=== PATIENT | female | born 1965 | race Caucasian/White ===

== ENCOUNTER 2020-03-14 14:34 | Outpatient (REF) | payer MEDICAID, SELFPAY ==
[2020-03-14 16:10] LABS: Free T4 (Free Thyroxine) 1.13 ng/dL (0.71-1.85); Thyroid Stimulating Hormone 1.14 mIU/mL (0.32-4.0)
== END 2020-03-14 14:35 | disposition home or self-care (01) ==
LOC: HO.LAB 14:34
PROVIDERS: PCP Emergency Medicine; Visit Provider Internal Medicine Endocrinology, Diabetes & Metabolism
DX: E04.2 Nontoxic multinodular goiter (principal)
CPT/HCPCS: 84439; 84443

== ENCOUNTER → 2020-03-17 10:36 | Outpatient (BNVA) | payer MEDICAID, SELFPAY | PROVIDERS: PCP Emergency Medicine; Referring Provider Emergency Medicine; Visit Provider Internal Medicine Endocrinology, Diabetes & Metabolism | DX: E04.2 Nontoxic multinodular goiter (principal); Z79.899 Other long term (current) drug therapy | CPT/HCPCS: 99213 ==

== ENCOUNTER 2020-03-17 13:52 | Outpatient (REF) | payer MEDICAID, SELFPAY | END 2020-03-17 13:53 | disposition home or self-care (01) | LOC: HO.LAB 13:52 | PROVIDERS: PCP Emergency Medicine; Visit Provider Internal Medicine | DX: Z20.828 Contact with and (suspected) exposure to other viral communicable diseases (principal) | CPT/HCPCS: 87635 ==

== ENCOUNTER → 2020-06-15 13:49 | Outpatient (BNVA) | payer MEDICAID, SELFPAY | PROVIDERS: PCP Registered Nurse Community Health; Visit Provider Physician Assistant ==

== ENCOUNTER 2020-06-22 15:00 | Outpatient (RCR) | payer MEDICAID, SELFPAY | END 2020-06-26 12:32 | disposition other institution (70) | LOC: HO.PT 15:00 | PROVIDERS: PCP Registered Nurse Community Health; Visit Provider Registered Nurse Community Health | DX: M54.9 Dorsalgia, unspecified (principal); M79.604 Pain in right leg | CPT/HCPCS: 97110; 97140; 97161 ==

== ENCOUNTER 2020-08-15 07:37 | Day surgery (SDC) | payer MEDICAID, SELFPAY ==
[2020-08-09 15:35] VITALS: BMI 33.5
--- NOTE | 2020-08-14 10:51 | HO.ANESPROP2 ---
Documented by User: Lacie Nguyễn 08/14/20 10:51 HPI - Anesthesia Eval Consult details Narrative: 54yo F for Colonoscopy PMFSH Active Problems Active Problems: All Active Problems (Updated 06/15/20 @ 14:27 by Darby Pinto PA-C) Abnormal MRI (Acute) ALL (acute lymphocytic leukemia) (Acute) Positive FIT (fecal immunochemical test) (Acute) Chronic constipation (Acute) Non-toxic multinodular goiter (Acute) Past Medical History Medical History ALL (acute lymphocytic leukemia) Breast mass, right Chronic constipation Essential hypertension Gluteal tendinitis of both buttocks Goiter diffuse, nontoxic Non-toxic multinodular goiter Obesity Retinopathy Thyroid nodule Family History Family History Father Lung cancer Mother Hypertension Surgical History Surgical History Hx of section Hx of colonoscopy S/P fine needle aspiration Social History Social History Smoking Status: Never smoker Use of substances other than those prescribed or required for medical reasons: No Advance Directives: No Advance Directives Information Provided: No Advance Directives on File: No Current occupational status: unemployed Meds Allergies Allergy/AdvReac Type Severity Reaction Status Date / Time No Known Allergies Allergy Verified 08/09/20 15:33 Home Medications Medication Instructions Recorded Confirmed Last Taken Type lisinopril 30 mg PO DAILY 02/29/20 08/09/20 Unknown History Exam Exam Date and Time: August 14, 2020 1051 Height,Weight and Vital Signs: Height 4 ft 11 in Weight 75.296 kg Pertinent Lab Results Pertinent Lab Results: Laboratory Tests 02/29/20 02/29/20 10:45 10:45 WBC 6.1 Hgb 13.6 Hct 39.8 Plt Count 256 Sodium 139 Potassium 4.1 Chloride 105 Carbon Dioxide 28 BUN 9 Creatinine 0.71 Assessment and Plan Assessment Anesthesia Assessment: Chart Reviewed Documented by User: Brianne Ruvalcaba 08/15/20 08:33 PMFSH Past Medical History Medical History ALL (acute lymphocytic leukemia) Breast mass, right Chronic constipation Essential hypertension Gluteal tendinitis of both buttocks Goiter diffuse, nontoxic Non-toxic multinodular goiter Obesity Retinopathy Thyroid nodule Family History Family History Father Lung cancer Mother Hypertension Surgical History Surgical History Hx of section Hx of colonoscopy S/P fine needle aspiration Social History Social History Smoking Status: Never smoker Use of substances other than those prescribed or required for medical reasons: No Advance Directives: No Advance Directives Information Provided: No Advance Directives on File: No Current occupational status: unemployed Meds Allergies Allergy/AdvReac Type Severity Reaction Status Date / Time No Known Allergies Allergy Verified 08/09/20 15:33 Home Medications Medication Instructions Recorded Confirmed Last Taken Type lisinopril 30 mg PO DAILY 02/29/20 08/09/20 Unknown History Exam Airway Mallampati Class: II TM Dist: >3cm Neck ROM: Full Heart: RRR Lungs: CTA Assessment and Plan Assessment Anesthesia Assessment: Anesthesia Plan Discussed and Chart Reviewed Final Anesthetic Review NPO: Yes ASA Class: II Final Preanesthetic Review: Meds/Allgs Chart Reviewed, Consent Obtained/Reviewed and Anes Risks/Benef Reviewed Patient Risk: Low Procedure Risk: Low Anesthetic Plan Anesthetic Plan: MAC: Disposition: Standard PACU
[2020-08-15 08:21] VITALS: BP 150/88; PULSE 90; RESP 16; TEMP 36.9; O2SAT 97; BMI 33.5
[2020-08-15] MEDS: Lactated Ringers 1,000 ML 100 ML IVCONT (08:32)
--- NOTE | 2020-08-15 09:21 | MHC.SHP ---
Pre-Procedural Eval Section B Chief Complaint: Other Fecal Abnormalities Relevant Family History (Specify if Yes): No Relevant Social History: None Present Medications: see Short Stay Collaborative assessment Medical History: Significant History (ALL (acute lymphocytic leukemia) Breast mass, right Chronic constipation Essential hypertension Gluteal tendinitis of both buttocks Goiter diffuse, nontoxic Non-toxic multinodular goiter Obesity Retinopathy Thyroid nodule) History of Previous Operations: Relevant previous surgery/procedure and date(s) (Hx of section Hx of colonoscopy S/P fine needle aspiration) Allergies: Allergies Allergy/AdvReac Type Severity Reaction Status Date / Time No Known Allergies Allergy Verified 08/09/20 15:33 Review of Systems Sugical H&P ROS: Negative: Constitution, Cardiovascular, Respiratory, Neurological, Psychiatric, Hem-Onc, Allergic/Immunologic, Gastrointestinal, Genitourinary, Musculoskeletal, Integumentary, Endocrine and Eyes/Ears/Nose/Throat Exam Surgical H&P Exam: Normal: HEENT, Normal: Heart, Normal: Lungs, Normal: Extremities, Normal: Abdomen, Normal: Skin and Normal: Neurological Plan Diagnosis/Plan: Unchanged I have reviewed the history and physical and performed a pertinent physical examination on my patient. No changes have occurred unless specified.
--- NOTE | 2020-08-15 09:30 | PM.OP ---
Brief Operative Note Date of Service: 08/15/20 Pre-op diagnosis: pos FIt test Post-op diagnosis: same Procedure: see op note Surgeon: Yves Soriano MD Anesthesia: MAC Estimated blood loss (mL): 0 Condition: stable Disposition: PACU
--- NOTE | 2020-08-15 09:30 | W.PM.OPN ---
Operative Note Operative Note Date of Service: 08/15/20 Narrative: Operative Information Procedure Description: Colonoscopy COLONOSCOPY Instrument: Olympus variable stiffness adult scope 190L Colonoscopy Monitoring: Vital signs and clinical assessment, continuous EKG monitoring, Pulse oximetry, Carbon Dioxide monitoring and blood pressure monitoring were done throughout the procedure. Colon withdrawal time was 19 minutes. Procedure: The patient was placed in the left lateral decubitis position and pre-procedure medications were administered. After a digital rectal examination of the ano-rectum, the video colonoscope was inserted into the rectum and advanced through the colon to the cecum/TI. The colonoscope was slowly withdrawn in a retrograde panoramic fashion and the colon mucosa was carefully examined including a retroflexed view of the rectum. Findings and interventions are described below. Procedure Difficulty:easy Findings: Terminal Ileum-normal Cecum:normal Ascending Colon: x 2 sessiel polyps removed with cold snare measuring about 8-10 mm Transverse Colon - x 1 sessile polyp 6-9 mm removed with cold snare Descending Colon:normal Sigmoid Colon: x 2 polyps removed with cold snare, one was pedunculated measuring 12 mm with one clip attached to stalk, and the other was sessile 10 mm in size Rectum: Retroflexion with small internal hemorrhoids, grade I Anorectum - normal Colon preparation: [place] Bowel Preparation Scale Right colon; 2 Transverse colon: 3 Left colon; 2 (0 = Unprepared colon segment with mucosa not seen due to solid stool that cannot be cleared. 1 = Portion of mucosa of the colon segment seen, but other areas of the colon segment not well seen due to staining, residual stool and/or opaque liquid. 2 = Minor amount of residual staining, small fragments of stool and/or opaque liquid, but mucosa of colon segment seen well. 3 = Entire mucosa of colon segment seen well with no residual staining, small fragments of stool or opaque liquid) Impression and Post Procedure Diagnosis: polyps internal hemorrhoids Plan: High fiber diet leaflet Avoid straining at stool, epsom salts and sitz bath, anusol supps or cream prn Repeat Colonoscopy in 1-2 years or earlier if clinically indicated Above findings were reviewed with the patient and relevant handouts were provided if indicated.
[2020-08-15 10:20] VITALS: BP 125/77; PULSE 80; RESP 18; TEMP 36; O2SAT 100
[2020-08-15 10:35] VITALS: BP 141/72; PULSE 76; RESP 18; TEMP 36.2; O2SAT 100
== END 2020-08-15 11:44 | disposition home or self-care (01) ==
PROVIDERS: Visit Provider Internal Medicine Gastroenterology
PROC: 0DJD8ZZ Inspection of Lower Intestinal Tract, Via Natural or Artificial Opening Endoscopic (ICD-10-PCS; CPT 45378; principal; 2020-08-15 09:20)
DX: R19.5 Other fecal abnormalities (principal); D12.2 Benign neoplasm of ascending colon; D12.3 Benign neoplasm of transverse colon; D12.5 Benign neoplasm of sigmoid colon; K64.0 First degree hemorrhoids; K59.09 Other constipation; I10 Essential (primary) hypertension; C91.00 Acute lymphoblastic leukemia not having achieved remission; Z79.899 Other long term (current) drug therapy
CPT/HCPCS: 45385; 88305

== ENCOUNTER → 2020-08-21 11:05 | Outpatient (BNVA) | payer MEDICAID, SELFPAY | PROVIDERS: PCP Registered Nurse Community Health; Visit Provider Physician Assistant ==

== ENCOUNTER 2020-12-06 10:43 | Outpatient (REF) | payer MEDICAID, SELFPAY ==
--- NOTE | ~2020-12-06 | MM_ITS ---
EXAMINATION: MM SCREENING DIGITAL BREAST TOMOSYNTHESIS, BILATERAL CLINICAL INFORMATION: Screening. Asymptomatic. Prior outside excisional right breast biopsy 2017. The lifetime risk of breast cancer based on the Tyrer-Cuzick Model is 6%. COMPARISON: Mammography: 07/16/2019, 05/13/2018; outside exam 05/02/2017 ([place], [place]). TECHNIQUE: Digital breast tomosynthesis is performed in both the craniocaudal and mediolateral oblique views along with computer-aided detection (CAD). Synthesized 2D images are generated from the tomosynthesis. Additional right CC and right MLO views are obtained. FINDINGS: There are scattered areas of fibroglandular density (ACR BI-RADS breast composition Category b). Breast tissue composition borders on heterogeneously dense. There are scattered stable asymmetries similar to prior exams. There is no developing density or interval mass or architectural abnormality. Again, scattered punctate and some dermal calcifications are seen. There are postsurgical changes right breast with mildly reduced breast size and stable scarring. MM/MM tomosynthesis screening BI IMPRESSION: No significant changes from prior studies. ASSESSMENT: BI-RADS 2: Benign RECOMMENDATION: Routine annual mammography screening. This patient's information was entered into a reminder system with a target due date for their next mammogram.
== END 2020-12-06 10:44 | disposition home or self-care (01) ==
LOC: HO.MAMMO 10:43
PROVIDERS: PCP Internal Medicine; Visit Provider Internal Medicine
DX: Z12.31 Encounter for screening mammogram for malignant neoplasm of breast (principal)
CPT/HCPCS: 77063; 77067

== ENCOUNTER 2021-03-05 12:43 | Outpatient (REF) | payer MEDICAID, SELFPAY ==
--- NOTE | ~2021-03-05 | US_ITS ---
EXAMINATION: US THYROID CLINICAL INFORMATION: Multinodular goiter. COMPARISON: Ultrasound thyroid soft tissue neck, most recent 05/18/2020. TECHNIQUE: Linear transducer ramirez-scale and color Doppler examination with attention to the region of the thyroid. FINDINGS: SIZE: Measurements of the thyroid lobes and nodules are given in sagittal, anteroposterior and transverse dimensions respectively. Right Thyroid Lobe: 4.4 x 2.2 x 1.8 cm, volume 8.9 mL. Previously 4.2 x 2.5 x 1.8 cm, volume 9.8 mL. Parenchyma: The gland echotexture is homogeneous. Thyroid vascularity is normal. Left Thyroid Lobe: 3.8 x 1.9 x 1.6 cm, volume 6.0 mL. Previously 4.4 x 1.8 x 1.9 cm, volume 7.8 mL. Parenchyma: The gland echotexture is homogeneous. Thyroid vascularity is normal. Isthmus: 0.5 cm in maximum AP dimension. Previously 0.5 cm. Estimated total number of nodules greater than or equal to 1 cm: 5. Crown Buffer nodules are described as follows: 1. Location: Right upper. Size: 1.3 x 0.9 x 1.2 cm, volume 0.7 mL. Previously: 1.2 x 1.0 x 1.1 cm, volume 0.7 mL. Nodule characteristics: Composition: Solid (2). Echogenicity: Isoechoic (1). Shape: Not taller than wide (0). Margins: Smooth (0). Echogenic Foci: None (0). ACR TI-RADS total points: 3 Previous: Not applicable. ACR TI-RADS category: 3 Previous: Not applicable. Significant change in size (>/= 20% in 2 dimensions and minimal increase of 2 mm or 50% or greater increase in volume): Change in features: Change in ACR TI-RADS risk category: 2. Location: Right mid. Size: 1.4 x 1.2 x 1.1 cm, volume 1.0 mL. Previously: 1.1 x 1.2 x 0.9 cm, volume 0.6 mL. Nodule characteristics: Composition: Solid/almost completely solid (2). Echogenicity: Isoechoic (1). Shape: Not taller than wide (0). Margins: Ill-defined (0). Echogenic Foci: None (0). ACR TI-RADS total points: 3 Previous: Not applicable. ACR TI-RADS category: 3 Previous: Not applicable. Significant change in size (>/= 20% in 2 dimensions and minimal increase of 2 mm or 50% or greater increase in volume): Change in features: Change in ACR TI-RADS risk category: 3. Location: Right lower. Size: 1.1 x 0.6 x 0.9 cm, volume 0.3 mL. Previously: 0.6 x 0.5 x 0.8 cm, volume 0.1 mL. Nodule characteristics: Composition: Solid/almost completely solid (2). Echogenicity: Hyperechoic (1). Shape: Not taller than wide (0). Margins: Ill-defined (0). Echogenic Foci: None (0). ACR TI-RADS total points: 3 Previous: Not applicable. ACR TI-RADS category: 3 Previous: Not applicable. Significant change in size (>/= 20% in 2 dimensions and minimal increase of 2 mm or 50% or greater increase in volume): Change in features: Change in ACR TI-RADS risk category: 4. Location: Left mid. Size: 1.5 x 1.4 x 1.6 cm, volume 1.8 mL. Previously: 1.7 x 1.0 x 1.2 cm, volume 1.0 mL. Nodule characteristics: Composition: Mixed cystic and solid (1). Echogenicity: Hyperechoic (1). Shape: Not taller than wide (0). Margins: Ill-defined (0). Echogenic Foci: None (0). ACR TI-RADS total points: 2 Previous: Not applicable. ACR TI-RADS category: 2 Previous: Not applicable. Significant change in size (>/= 20% in 2 dimensions and minimal increase of 2 mm or 50% or greater increase in volume): Change in features: Change in ACR TI-RADS risk category: 5. Location: Left lower. Size: 1.1 x 0.9 x 0.9 cm, volume 0.5 mL. Previously: New. Nodule characteristics: Composition: Mixed cystic and solid (1). Echogenicity: Hyperechoic (1). Shape: Not taller than wide (0). Margins: Ill-defined (0). Echogenic Foci: None (0). ACR TI-RADS total points: 2 Previous: Not applicable. ACR TI-RADS category: 2 Previous: Not applicable. NODES: No lymphadenopathy is seen in the tissue surrounding the thyroid gland. US/US thyroid IMPRESSION: Bilateral thyroid nodules. There is a newly appreciated complex cystic nodule in the inferior left lobe. Otherwise thyroid nodules are stable. ACR TI-RADS RECOMMENDATION REFERENCE: Ultrasound-guided fine-needle aspiration, followup ultrasound, no further follow up. * TR1 (0 point) and TR 2 (2 points): No FNA or follow up * TR3 (3 points): FNA if more than or equal to 2.5 cm in maximum dimension, followup ultrasound in 1, 3 and 5 years if 1.5 to 2.4 cm in maximum dimension. * TR4 (4-6 points): FNA if more than or equal to 1.5 cm in maximum dimension, followup ultrasound in 1, 2, 3 and 5 years if 1 to 1.4 cm in maximum dimension. * TR5 (more than or equal to 7 points): FNA if more than or equal to 1 cm in maximum dimension, followup ultrasound every year for 5 years if 0.5 to 0.9 cm in maximum dimension. * TR3, TR4 or TR5 nodules that are below the size threshold for follow up receive no follow up.
== END 2021-03-05 12:44 | disposition home or self-care (01) ==
LOC: HO.US 12:43
PROVIDERS: Visit Provider Internal Medicine
DX: E04.2 Nontoxic multinodular goiter (principal)
CPT/HCPCS: 76536

== ENCOUNTER 2021-07-26 10:47 | Outpatient (REF) | payer MEDICAID, SELFPAY ==
--- NOTE | 2021-07-26 11:53 | PM.OP ---
Brief Operative Note Date of Service: 07/26/21 Pre-op diagnosis: Multinodular Thyroid Procedure: This is doctor Chanell Ochoa. This is an ultrasound-guided fine-needle aspiration report. Date of Examination: Indication: Multinodular Thyroid Porcedure: Procedure was explained to the patient. Alternatives, the risk and benefits were discussed. Written consent was obtained. A time-out was also obtained. After sterile preparation, fine-needle aspiration of a left mid pole thyroid nodule 2.0 cm thyroid nodule was performed using direct ultrasound guidance to confirm accurate needle placement. Four aspirations were made using 27 gauge needles. Samples were submitted for cytology. One pass was dedicated for [employer] sequencing wall covering installer testing. Our attention was then turned to the right lobe. Fine-needle aspiration of a right mid pole 1.7 cm thyroid nodule was performed using direct ultrasound guidance to confirm accurate needle placement. Three aspirations were made using 27 gauge needles. Samples were submitted for cytology. One pass was dedicated for [employer] sequencing wall covering installer testing. Fine-needle aspiration of a right lower pole 1.5 cm thyroid nodule was then performed using direct ultrasound guidance to confirm accurate needle placement. Four aspirations were made using 27 gauge needles. Samples were submitted for cytology. One pass was dedicated for [employer] sequencing wall covering installer testing. The patient tolerated the procedure well. Aftercare instructions were provided. Impression: Uncomplicated fine needle aspiration biopsy of a left mid pole 2.0 cm thyroid nodule, a right mid pole 1.7 cm thyroid nodule and a right lower pole 1.5 cm thyroid nodule under ultrasound guidance. Surgeon: Chanell Ochoa, DO Was an Engineering Surveyor used for this Procedure?: No Estimated blood loss (mL): 0
[2021-07-26] MEDS: Lidocaine HCl 1 % MPF 5 ML VIAL SUBCUT (12:44)
== END 2021-07-26 10:48 | disposition home or self-care (01) ==
LOC: HO.US 10:47
PROVIDERS: PCP Registered Nurse Community Health; Visit Provider Internal Medicine
DX: E04.2 Nontoxic multinodular goiter (principal)
CPT/HCPCS: 10005; 10006; 88172; 88173; 88177

== ENCOUNTER → 2021-08-13 09:46 | Outpatient (BNVA) | payer MEDICAID, SELFPAY | PROVIDERS: PCP Internal Medicine; Visit Provider Internal Medicine | DX: E04.2 Nontoxic multinodular goiter (principal); E55.9 Vitamin D deficiency, unspecified; Z79.899 Other long term (current) drug therapy | CPT/HCPCS: Q3014 ==

== ENCOUNTER → 2021-09-20 14:42 | Outpatient (BNVA) | payer MEDICAID, SELFPAY | PROVIDERS: PCP Registered Nurse Community Health; Referring Provider Registered Nurse Community Health; Visit Provider Physician Assistant | DX: K59.09 Other constipation (principal); D36.9 Benign neoplasm, unspecified site | CPT/HCPCS: 99212 ==

== ENCOUNTER 2021-10-17 16:09 | Outpatient (REF) | payer MEDICAID, SELFPAY ==
--- NOTE | ~2021-10-17 | US_ITS ---
EXAMINATION: US THYROID CLINICAL INFORMATION: Nontoxic multinodular goiter. COMPARISON: Ultrasound soft tissue head/neck thyroid dated 03/05/2021 and 02/17/2020. TECHNIQUE: Linear transducer grayscale and color Doppler examination with attention to the region of the thyroid. FINDINGS: SIZE: Measurements of the thyroid lobes and nodules are given in sagittal, anteroposterior and transverse dimensions respectively. Right Thyroid Lobe: 4.0 x 2.5 x 1.9 cm, volume 9.9 mL. Previously 4.4 x 2.2 x 1.8 cm, volume 8.9 mL. Parenchyma: The gland echotexture is homogeneous. Thyroid vascularity is normal. Left Thyroid Lobe: 3.8 x 2.3 x 1.8 cm, volume 8.2 mL. Previously 3.8 x 1.9 x 1.6 cm, volume 6.0 mL. Parenchyma: The gland echotexture is homogeneous. Thyroid vascularity is normal. Isthmus: 0.5 cm in maximum AP dimension. Previously 0.5 cm. Estimated total number of nodules greater than or equal to 1 cm: 2. Home Health Care Respiratory Therapist nodules are described as follows: 1. Location: Right superior. Size: 1.1 x 1.0 x 1.1 cm, volume 0.7 mL. Previously: 1.3 x 0.9 x 1.2 cm, volume 0.7 mL. Nodule characteristics: Composition: Solid (2). Echogenicity: Isoechoic (1). Shape: Not taller than wide (0). Margins: Smooth (0). Echogenic Foci: None (0). ACR TI-RADS total points: 3 Previous: 3 ACR TI-RADS category: 3 Previous: 3 2. Location: Right mid. Size: 1.1 x 1.1 x 1.2 cm, volume 0.7 mL. Previously: 1.4 x 1.2 x 1.1 cm, volume 1.0 mL. Nodule characteristics: Composition: Solid (2). Echogenicity: Isoechoic (1). Shape: Not taller than wide (0). Margins: Smooth (0). Echogenic Foci: None (0). ACR TI-RADS total points: 3 Previous: 3 ACR TI-RADS category: 3 Previous: 3 3. Location: Right inferior. Size: 0.7 x 0.6 x 0.7 cm, volume 0.1 mL. Previously: 1.1 x 0.6 x 0.9 cm, volume 0.3 mL. Nodule characteristics: Composition: Solid/almost completely solid (2). Echogenicity: Isoechoic (1). Shape: Not taller than wide (0). Margins: Smooth (0). Echogenic Foci: None (0). ACR TI-RADS total points: 3 Previous: 3 ACR TI-RADS category: 3 Previous: 3 4. Location: Left mid. Size: 0.8 x 0.7 x 0.7 cm, volume 0.2 mL. Previously: 1.5 x 1.4 x 1.6 cm, volume 1.8 mL. Nodule characteristics: Composition: Mixed cystic and solid (1). Echogenicity: Hyperechoic (1). Shape: Not taller than wide (0). Margins: Smooth (0). Echogenic Foci: None (0). ACR TI-RADS total points: 2 Previous: 2 ACR TI-RADS category: 2 Previous: 2 Previously seen 1.1 cm nodule in the lower pole was not visualized on this study by the home health care respiratory therapist NODES: No lymphadenopathy is seen in the tissue surrounding the thyroid gland. US/US thyroid IMPRESSION: Once again areas of thyroid nodularity are seen here. Several these nodules are poorly defined margins. Nevertheless I feel there is no suspicious increase in several nodules may show some mild decrease. Continued follow-up is recommended. Recommend follow-up in one year ACR TI-RADS RECOMMENDATION REFERENCE: Ultrasound-guided fine-needle aspiration, followup ultrasound, no further follow up. * TR1 (0 point) and TR 2 (2 points): No FNA or follow up * TR3 (3 points): FNA if more than or equal to 2.5 cm in maximum dimension, followup ultrasound in 1, 3 and 5 years if 1.5 to 2.4 cm in maximum dimension. * TR4 (4-6 points): FNA if more than or equal to 1.5 cm in maximum dimension, followup ultrasound in 1, 2, 3 and 5 years if 1 to 1.4 cm in maximum dimension. * TR5 (more than or equal to 7 points): FNA if more than or equal to 1 cm in maximum dimension, followup ultrasound every year for 5 years if 0.5 to 0.9 cm in maximum dimension. * TR3, TR4 or TR5 nodules that are below the size threshold for follow up receive no follow up.
== END 2021-10-17 16:10 | disposition home or self-care (01) ==
LOC: HO.US 16:09
PROVIDERS: Visit Provider Internal Medicine
DX: E04.2 Nontoxic multinodular goiter (principal)
CPT/HCPCS: 76536

== ENCOUNTER 2021-12-17 09:35 | Day surgery (SDC) | payer MEDICAID, SELFPAY ==
[2021-12-11 14:48] VITALS: BMI 32.4
--- NOTE | 2021-12-14 10:31 | P.CONAN_ITS ---
Documented by User: Lacie Nguyễn NP 12/14/21 10:32 HPI - Anesthesia Eval Consult details Narrative: 56yo F for Colonoscopy PMFSH Active Problems Active Problems: All Active Problems (Updated 09/20/21 @ 14:52 by Darby Pinto PA-C) Abnormal MRI (Acute) ALL (acute lymphocytic leukemia) (Acute) Positive FIT (fecal immunochemical test) (Acute) Tubular adenoma (Acute) Vitamin D deficiency (Acute) Chronic constipation (Acute) Non-toxic multinodular goiter (Acute) Past Medical History Medical History (Updated 12/14/21 @ 10:32 by Lacie Nguyễn NP) ALL (acute lymphocytic leukemia) Breast mass, right Chronic constipation Essential hypertension Gluteal tendinitis of both buttocks Goiter diffuse, nontoxic Non-toxic multinodular goiter Obesity Retinopathy Thyroid nodule Vitamin D deficiency Family History Family History Father Lung cancer Mother Hypertension Surgical History Surgical History (Updated 12/11/21 @ 14:42 by Mayelin Lorenzo RN) Hx of section Hx of colonoscopy S/P fine needle aspiration Social History Social History Household Members: Children Household Members Other:: son and daughter in law Alcohol intake: never Advance Directives: No Advance Directives Information Provided: Yes Current occupational status: unemployed Meds Allergies Allergy/AdvReac Type Severity Reaction Status Date / Time No Known Allergies Allergy Verified 09/20/21 14:48 Home Medications Medication Instructions Recorded Confirmed Last Taken Type lisinopril 30 mg tablet 30 mg PO DAILY 02/29/20 12/11/21 Unknown History docusate sodium 100 mg capsule 200 mg PO BEDTIME PRN Constipation 08/13/21 12/11/21 Unknown History (Colace) polyethylene glycol 3350 17 gram 17 g PO DAILY PRN constipation 08/13/21 09/20/21 Unknown History oral powder packet (Miralax) Exam Exam Date and Time: December 14, 2021 1031 Height,Weight and Vital Signs: Height 5 ft Weight 75.296 kg Assessment and Plan Assessment Anesthesia Assessment: Chart Reviewed Documented by User: Claudia Millard MD 12/17/21 11:07 [facility] Past Medical History Medical History (Updated 12/14/21 @ 10:32 by Lacie Nguyễn NP) ALL (acute lymphocytic leukemia) Breast mass, right Chronic constipation Essential hypertension Gluteal tendinitis of both buttocks Goiter diffuse, nontoxic Non-toxic multinodular goiter Obesity Retinopathy Thyroid nodule Vitamin D deficiency Family History Family History Father Lung cancer Mother Hypertension Family history of problems with anesthesia: No Surgical History Surgical History (Updated 12/11/21 @ 14:42 by Mayelin Lorenzo RN) Hx of section Hx of colonoscopy S/P fine needle aspiration History of Problems with Anesthesia: No Social History Social History Household Members: Children Household Members Other:: son and daughter in law Alcohol intake: never Advance Directives: No Advance Directives Information Provided: Yes Current occupational status: unemployed Meds Allergies Allergy/AdvReac Type Severity Reaction Status Date / Time No Known Allergies Allergy Verified 09/20/21 14:48 Home Medications Medication Instructions Recorded Confirmed Last Taken Type lisinopril 30 mg tablet 30 mg PO DAILY 02/29/20 12/11/21 Unknown History docusate sodium 100 mg capsule 200 mg PO BEDTIME PRN Constipation 08/13/21 12/11/21 Unknown History (Colace) polyethylene glycol 3350 17 gram 17 g PO DAILY PRN constipation 08/13/21 09/20/21 Unknown History oral powder packet (Miralax) Exam Airway Mallampati Class: II TM Dist: >3cm Neck ROM: Full Heart: rrr Lungs: cta Assessment and Plan Assessment Anesthesia Assessment: Anesthesia Plan Discussed and Chart Reviewed Final Anesthetic Review Family History of Problems with Anesthesia: No History of Problems with Anesthesia: No NPO: Yes ASA Class: II Final Preanesthetic Review: No Changes in Pt Med Stat, Meds/Allgs Chart Reviewed and Consent Obtained/Reviewed Patient Risk: Intermediate Procedure Risk: Intermediate Anesthetic Plan Anesthetic Plan: MAC: Disposition: Standard PACU
--- NOTE | 2021-12-17 10:33 | MHC.SHP ---
Pre-Procedural Eval Section A Date of Service: 12/17/21 The patient is an INPATIENT: No The History & Physical has been completed within 30 days and I have reviewed it.: No Section B Chief Complaint: Benign neoplasm,constipation Relevant Family History (Specify if Yes): No Present Medications: see Short Stay Collaborative assessment Medical History: Significant History (ALL (acute lymphocytic leukemia) Breast mass, right Chronic constipation Essential hypertension Gluteal tendinitis of both buttocks Goiter diffuse, nontoxic Non-toxic multinodular goiter Obesity Retinopathy Thyroid nodule Vitamin D deficiency) History of Previous Operations: Relevant previous surgery/procedure and date(s) (Hx of section Hx of colonoscopy S/P fine needle aspiration) Allergies: Allergies Allergy/AdvReac Type Severity Reaction Status Date / Time No Known Allergies Allergy Verified 09/20/21 14:48 Review of Systems Sugical H&P ROS: Negative: Constitution, Cardiovascular and Respiratory Exam Surgical H&P Exam: Normal: Heart, Normal: Lungs, Normal: Extremities and Normal: Abdomen Plan Diagnosis/Plan: Unchanged I have reviewed the history and physical and performed a pertinent physical examination on my patient. No changes have occurred unless specified.
[2021-12-17 10:41] VITALS: BP 151/89; PULSE 90; RESP 18; TEMP 36.8; O2SAT 99
[2021-12-17] MEDS: Lactated Ringers 1,000 ML 50 ML IVCONT (11:02)
[2021-12-17 11:54] VITALS: BP 88/50; PULSE 80; RESP 16; TEMP 36.4; O2SAT 97
--- NOTE | 2021-12-17 11:55 | P.BOP_ITS ---
Brief Operative Note Date of Service: 12/17/21 Pre-op diagnosis: Colon cancer screen, follow-up of colon polyps Post-op diagnosis: other (Colon polyp, diverticulosis, hemorrhoids) Procedure: COLONOSCOPY TILL CECUM WITH BIOPSIES AND SNARE POLYPECTOMY Consent: Indications for the procedure and potential complications of bleeding, perforation, reaction to medications and missed diagnosis were discussed with the patient and informed consent was obtained. Instrument: Olympus PCF H 190 L variable stiffness pediatric colonoscope Monitoring: Vital signs and clinical assessment, intermittent blood pressure monitoring, continuous EKG monitoring, Pulse oximetry and Carbon Dioxide monitoring were done throughout the procedure. Colon withdrawl time was 22 minutes. Procedure: The patient was placed in the left lateral decubitis position and pre-procedure medications were administered. After a digital rectal examination of the ano-rectum, the video colonoscope was inserted into the rectum and advanced through the colon to the cecum. The colonoscope was slowly withdrawn in a retrograde panoramic fashion and the colon mucosa was carefully examined including a retroflexed view of the rectum. Findings and interventions are described below. Procedure Difficulty: Without difficulty Findings: Terminal Ileum: Not evaluated Cecum: Normal Ascending Colon: Normal Transverse Colon: A 7-8 mm sessile polyp removed with a cold snare. Residual polyp removed with a cold bx Descending Colon: Moderate diverticulosis Sigmoid Colon: Moderate diverticulosis Rectum: Normal Ano-rectum: Small internal hemorrhoids Colon preparation: Good after some irrigation. There was a thin layer of adherent stool in the right colon and excessive spasm was noted in the colon requiring repeated passage of the scope Impression and Post Procedure Diagnosis: Colonoscopy Findings: One small polyp removed Moderate diverticulosis seen in the left colon Small hemorrhoids on retroflexed exam. Plan: Await pathology results Patient has an appointment on 01/03/22 in the GI Clinic with COLE Rider. Repeat Colonoscopy interval based on path results - in 3 years if polyps are adenomatous and due to a hx of multiple colon polyps on previous colonoscopy. Above findings were reviewed with the patient and colon polyps and diverticulosis handouts were given in the discharge area Surgeon: Rachel Solano MD Anesthesia: MAC (Dr Bruno) Was an Psychological Tests Sales Agent used for this Procedure?: Yes Psychological Tests Sales Agent: Audrey Feliz Estimated blood loss (mL): 0 Pathology: other (A. transverse colon polyp) Condition: stable Disposition: PACU
[2021-12-17 12:09] VITALS: BP 94/56; PULSE 66; RESP 15; O2SAT 98
[2021-12-17 12:23] VITALS: BP 115/67; PULSE 72; RESP 14; TEMP 36.6; O2SAT 98
--- NOTE | 2021-12-17 18:08 | P.OP_ITS ---
Operative Note Operative Note Date of Service: 12/17/21 Narrative: Pre-op diagnosis: Colon cancer screen, follow-up of colon polyps Post-op diagnosis:?other (Colon polyp, diverticulosis, hemorrhoids) Procedure: COLONOSCOPY TILL CECUM WITH BIOPSIES AND SNARE POLYPECTOMY Consent: Indications for the procedure and potential complications of bleeding, perforation, reaction to medications and missed diagnosis were discussed with the patient and informed consent was obtained. Instrument: Olympus PCF H 190 L variable stiffness pediatric colonoscope Monitoring: Vital signs and clinical assessment, intermittent blood pressure monitoring, continuous EKG monitoring, Pulse oximetry and Carbon Dioxide monitoring were done throughout the procedure. Colon withdrawl time was 22 minutes. Procedure: The patient was placed in the left lateral decubitis position and pre-procedure medications were administered. After a digital rectal examination of the ano-rectum, the video colonoscope was inserted into the rectum and advanced through the colon to the cecum. The colonoscope was slowly withdrawn in a retrograde panoramic fashion and the colon mucosa was carefully examined including a retroflexed view of the rectum. Findings and interventions are described below. Procedure Difficulty: Without difficulty Findings: Terminal Ileum: Not evaluated Cecum:? Normal Ascending Colon:? Normal Transverse Colon:? A 7-8 mm sessile polyp removed with a cold snare. Residual polyp removed with a cold bx Descending Colon: ? Moderate diverticulosis Sigmoid Colon:? Moderate diverticulosis Rectum:? Normal Ano-rectum:? Small internal hemorrhoids Colon preparation:? Good after some irrigation. There was a thin layer of adherent stool in the right colon and excessive spasm was noted in the colon requiring repeated passage of the scope Impression and Post Procedure Diagnosis: Colonoscopy Findings: One small polyp removed Moderate diverticulosis seen in the left colon Small hemorrhoids on retroflexed exam. Plan: Await pathology results Patient has an appointment on 01/03/22 in the GI Clinic with COLE Rider. Repeat Colonoscopy interval based on path results - in 3 years if polyps are adenomatous and due to a hx of multiple colon polyps on previous colonoscopy. Above findings were reviewed with the patient and colon polyps and diverticulosis handouts were given in the discharge area Surgeon: Rachel Solano MD Anesthesia:?MAC (Dr Bruno) Was an General Activities Therapist used for this Procedure?:?Yes General Activities Therapist:?Audrey Feliz Estimated blood loss (mL):?0 Pathology:?other (A. transverse colon polyp) Condition:?stable Disposition:?PACU
== END 2021-12-17 13:38 | disposition home or self-care (01) ==
PROVIDERS: Visit Provider Internal Medicine Gastroenterology
PROC: 0DJD8ZZ Inspection of Lower Intestinal Tract, Via Natural or Artificial Opening Endoscopic (ICD-10-PCS; CPT 45378; principal; 2021-12-17 11:10)
DX: Z12.11 Encounter for screening for malignant neoplasm of colon (principal); Z86.010 Personal history of colon polyps; D12.3 Benign neoplasm of transverse colon; K57.30 Diverticulosis of large intestine without perforation or abscess without bleeding; K64.8 Other hemorrhoids; K59.09 Other constipation; C91.00 Acute lymphoblastic leukemia not having achieved remission; I10 Essential (primary) hypertension; E04.0 Nontoxic diffuse goiter; E04.1 Nontoxic single thyroid nodule; E55.9 Vitamin D deficiency, unspecified; H35.00 Unspecified background retinopathy; E66.9 Obesity, unspecified; Z68.32 Body mass index [BMI] 32.0-32.9, adult; Z79.899 Other long term (current) drug therapy
CPT/HCPCS: 45385; 45380; 88305

== ENCOUNTER 2021-12-29 09:21 | Outpatient (REF) | payer MEDICAID, SELFPAY ==
[2021-12-29 09:31] LABS: MANUAL DIFF FLAG NO
[2021-12-29 10:28] LABS: Estimated Average Glucose 88 mg/dL; Hemoglobin A1c % 4.7 %
[2021-12-29 10:32] LABS: Basophils Percent Auto 0.4 % (0-2); Eosinophils Absolute Auto 0.1 X10*3/uL (0.0-0.4); Eosinophils Percent Auto 1.5 % (0-4); Hematocrit 41.8 % (37.0-47.0); Imm Gran Abs Auto 0.02 X10*3/uL (0.00-0.03); Imm Gran Pct Auto 0.3 % (0.0-0.4); Lymphocytes Absolute Auto 1.6 X10*3/uL (1.2-4.9); Lymphocytes Percent Auto 22.2 % (20-40); Mean Corpuscular HGB Conc 33.5 g/dl (31.0-35.0); Mean Corpuscular Hemoglobin 29.1 pg (27.0-33.0); Mean Corpuscular Volume 86.9 fL (80.0-98.0); Mean Platelet Volume 10.4 fL (9.4-12.3); Monocytes Absolute Auto 0.5 X10*3/uL (0.1-1.2); Monocytes Percent Auto 6.4 % (2-11); Neutrophils Absolute Auto 5.1 x10*3/uL (2.0-8.3); Neutrophils Percent Auto 69.2 % (45-73); Platelet Count 273 X10*3/uL (160-400); Red Blood Count 4.81 X10*6/uL (4.20-5.50); Red Cell Distribution Width 11.9 % (11.0-16.0); White Blood Count 7.4 X10*3/uL (4.8-10.8)
[2021-12-29 10:34] LABS: Alanine Aminotransferase 27 U/L (0-31); Albumin Level 4.2 g/dL (3.5-5.0); Alkaline Phosphatase 80 U/L (39-117); Anion Gap 13 (12-20); Aspartate Amino Transferase 18 U/L (5-31); Blood Urea Nitrogen 9 mg/dL (9-16); Calcium 9.3 mg/dL (8.4-10.2); Carbon Dioxide 29 mmol/L (22-29); Chloride 105 mmol/L (96-108); Cholesterol 185 mg/dL; Estimated Glomerular Filt Rate > 60; Glucose Random 97 mg/dL (60-115); HDL Cholesterol 32 mg/dL; LDL Cholesterol Calculated 132 mg/dl; Potassium 4.7 mmol/L (3.3-5.1); Sodium 142 mmol/L (135-145); Total Protein 7.1 g/dL (6.5-8.0); Triglycerides 107 mg/dL
[2021-12-29 10:56] LABS: Vitamin D 25-OH Total 31.2 ng/mL (>30)
== END 2021-12-29 09:22 | disposition home or self-care (01) ==
LOC: HO.LAB 09:21
PROVIDERS: PCP Registered Nurse Community Health; Visit Provider Registered Nurse Community Health
DX: E66.9 Obesity, unspecified (principal); I10 Essential (primary) hypertension
CPT/HCPCS: 36415; 80053; 80061; 82306; 83036; 85025

== ENCOUNTER → 2022-01-03 14:32 | Outpatient (BNVA) | payer MEDICAID, SELFPAY | PROVIDERS: PCP Registered Nurse Community Health; Visit Provider Physician Assistant | DX: K63.5 Polyp of colon (principal); K64.9 Unspecified hemorrhoids; K57.30 Diverticulosis of large intestine without perforation or abscess without bleeding | CPT/HCPCS: 99212 ==

== ENCOUNTER 2022-03-20 15:50 | Outpatient (REF) | payer MEDICAID, SELFPAY ==
--- NOTE | ~2022-03-20 | MM_ITS ---
EXAMINATION: MM SCREENING DIGITAL BREAST TOMOSYNTHESIS, BILATERAL CLINICAL INFORMATION: Screening. Asymptomatic. Right excisional biopsy, 2017 The lifetime risk of breast cancer based on the Tyrer-Cuzick Model is 6%. COMPARISON: Mammography: 12/06/2020, 07/16/2019 05/13/2018 TECHNIQUE: Digital breast tomosynthesis is performed in both the craniocaudal and mediolateral oblique views along with computer-aided detection (CAD). Synthesized 2D images are generated from the tomosynthesis. Additional bilateral MLO views are provided. FINDINGS: There are scattered areas of fibroglandular density (ACR BI-RADS breast composition Category b). There is minor scarring right breast consistent with the prior excisional biopsy. Parenchymal pattern is similar to prior exams and there is no developing density or interval mass or interval architectural abnormality. No abnormal calcifications. The axilla are unremarkable. MM/MM tomosynthesis screening BI IMPRESSION: -No mammographic evidence of malignancy. -Stable scarring central right breast consistent with prior excisional biopsy. ASSESSMENT: BI-RADS 2: Benign RECOMMENDATION: Routine annual mammography screening. This patient's information was entered into a reminder system with a target due date for their next mammogram.
== END 2022-03-20 15:51 | disposition home or self-care (01) ==
LOC: HO.MAMMO 15:50
PROVIDERS: PCP Registered Nurse Community Health; Visit Provider Registered Nurse Community Health
DX: Z12.31 Encounter for screening mammogram for malignant neoplasm of breast (principal)
CPT/HCPCS: 77063; 77067

== ENCOUNTER 2022-08-14 16:09 | Outpatient (REF) | payer MEDICAID, SELFPAY ==
[2022-08-14 18:17] LABS: Free T4 (Free Thyroxine) 1.29 ng/dL (0.71-1.85); Thyroid Stimulating Hormone 1.28 uIU/mL (0.32-4.0); Vitamin D 25-OH Total 18.8 ng/mL (>30)
== END 2022-08-14 16:10 | disposition home or self-care (01) ==
LOC: HO.LAB 16:09
PROVIDERS: Visit Provider Internal Medicine
DX: E04.2 Nontoxic multinodular goiter (principal); E55.9 Vitamin D deficiency, unspecified
CPT/HCPCS: 36415; 82306; 84439; 84443

== ENCOUNTER → 2022-08-19 14:47 | Outpatient (BNVA) | payer MEDICAID, SELFPAY | PROVIDERS: Visit Provider Internal Medicine | DX: E04.2 Nontoxic multinodular goiter (principal); E55.9 Vitamin D deficiency, unspecified | CPT/HCPCS: 99212 ==

== ENCOUNTER 2022-11-16 09:45 | Outpatient (REF) | payer MEDICAID, SELFPAY ==
[2022-11-16 11:30] LABS: Free T4 (Free Thyroxine) 1.16 ng/dL (0.71-1.85); Thyroid Stimulating Hormone 0.94 uIU/mL (0.32-4.0); Vitamin D 25-OH Total 44.3 ng/mL (>30)
== END 2022-11-16 09:46 | disposition home or self-care (01) ==
LOC: HO.LAB 09:45
PROVIDERS: PCP Registered Nurse Community Health; Visit Provider Internal Medicine
DX: E04.2 Nontoxic multinodular goiter (principal); E55.9 Vitamin D deficiency, unspecified
CPT/HCPCS: 36415; 82306; 84439; 84443

== ENCOUNTER 2023-03-17 | Outpatient (REF) | payer MEDICAID, SELFPAY ==
[2023-03-19 20:37] LABS: HPV mRNA E6/E7 rflx Not Detected (Not Detected)
== END 2023-03-17 00:01 | disposition home or self-care (01) ==
LOC: HO.HHCLNP
PROVIDERS: Visit Provider Advanced Practice Midwife
DX: Z01.419 Encounter for gynecological examination (general) (routine) without abnormal findings (principal)
CPT/HCPCS: 87624; 88142

== ENCOUNTER 2023-03-27 15:44 | Outpatient (REF) | payer MEDICAID, SELFPAY ==
--- NOTE | ~2023-03-27 | MM_ITS ---
EXAMINATION: MM SCREENING DIGITAL BREAST TOMOSYNTHESIS, BILATERAL CLINICAL INFORMATION: Screening. Asymptomatic. COMPARISON: Mammography: This study is compared with prior exams dating back to 2018. TECHNIQUE: Digital breast tomosynthesis is performed in both the craniocaudal and mediolateral oblique views along with computer-aided detection (CAD). Synthesized 2D images are generated from the tomosynthesis. FINDINGS: There are scattered areas of fibroglandular density (ACR BI-RADS breast composition Category b). There are no significant masses, abnormal calcifications, or other abnormalities. There are architectural changes in the retroareolar region of the right breast from prior excision. MM/MM tomosynthesis screening BI IMPRESSION: No mammographic evidence of malignancy. ASSESSMENT: BI-RADS BI-RADS 2 - Benign Findings RECOMMENDATION: Routine annual mammography screening. 1 year F/U This examination should not preclude the clinical evaluation of a suspicious palpable abnormality. This patient's information was entered into a reminder system with a target due date for their next mammogram.
== END 2023-03-27 15:45 | disposition home or self-care (01) ==
LOC: HO.MAMMO 15:44
PROVIDERS: Visit Provider Registered Nurse Community Health
DX: Z12.31 Encounter for screening mammogram for malignant neoplasm of breast (principal)
CPT/HCPCS: 77063; 77067

== ENCOUNTER → 2023-03-27 16:00 | Outpatient (BNV) | payer MEDICAID, SELFPAY | PROVIDERS: Visit Provider Radiology Diagnostic Radiology | DX: Z12.31 Encounter for screening mammogram for malignant neoplasm of breast (principal) | CPT/HCPCS: 77063; 77067 ==

== ENCOUNTER 2023-08-18 13:31 | Outpatient (AMB) | payer MEDICAID, SELFPAY ==
[2023-08-18 13:41] VITALS: BP 140/82; PULSE 84; BMI 31.6
--- NOTE | 2023-08-18 13:41 | MHC.OFFVIS ---
Intake Vital Signs 08/18/23 13:41 Height 5 ft 0.79 in Weight 166 lb 0.129 oz BMI 31.6 BP 140/82 H Blood Pressure Location Rt brachial Position Sitting Pulse 84 Pulse Source Pulse Oximeter Intake Visit Reasons: F/U NTMNG-confirmed Intake Note: Patient presents today for NTMNG follow up visit, last seen by Dr. Rodriguez on 08/19/2022. Endoscopic Technician Required: Yes Endoscopic Technician Language: Ccu Nurse Name: Teresita, Medical Staff Information Interpreted: non-clinical & clinical Accompanied by: Self / Same As Patient Allergies No Known Allergies Allergy (Verified 08/18/23 13:43) Medication List - Last Reconciled 08/18/23 by Jose Chan MD cholecalciferol (vitamin D3) 50 mcg PO DAILY 30 days lisinopril 30 mg PO DAILY polyethylene glycol 3350 (Miralax) 17 grams PO DAILY PRN polyethylene glycol 3350 (Miralax) 17 grams PO DAILY HPI HPI Comments History of Present Illness Details 57 YO Female with a PMHx of ALL diagnosed in the 1970's s/p chemo and radiation who is seen in F/U for a NTMNG. She was previously followed by Dr. Bo. The patient last saw Dr. Rodriguez on 08/19/2022 She had previously undergone an FNA biopsy with Dr. Bo 05/28/2018 of a LLP 3.5 cm nodule. She had a repeat thyroid US which revealed multiple nodules meeting indication for FNA biopsy, so she underwent FNA biopsy with fl 07/26/2021 of a LMP 2.0 cm, RMP 1.7 cm and a RLP 1.5 cm thyroid nodule. Cytology results of all 3 were benign. She denies any compressive symptoms currently. Thyroid US: 10/17/2021 Right Thyroid Lobe: 4.0 x 2.5 x 1.9 cm, volume 9.9 mL. Previously 4.4 x 2.2 x 1.8 cm, volume 8.9 mL. Parenchyma: The gland echotexture is homogeneous. Thyroid vascularity is normal. Left Thyroid Lobe: 3.8 x 2.3 x 1.8 cm, volume 8.2 mL. Previously 3.8 x 1.9 x 1.6 cm, volume 6.0 mL. Parenchyma: The gland echotexture is homogeneous. Thyroid vascularity is normal. Isthmus: 0.5 cm in maximum AP dimension. Previously 0.5 cm. Estimated total number of nodules greater than or equal to 1 cm: 2. Software Support Technician nodules are described as follows: 1.? Location: Right superior. ?? ? Size: 1.1 x 1.0 x 1.1 cm, volume 0.7 mL. ?? ? Previously: 1.3 x 0.9 x 1.2 cm, volume 0.7 mL. ?? ? Nodule characteristics: ?? ? Composition: Solid (2). ?? ? Echogenicity: Isoechoic (1). ?? ? Shape: Not taller than wide (0). ?? ? Margins: Smooth (0). ?? ? Echogenic Foci: None (0).? ACR TI-RADS total points: 3 Previous: 3 ?? ? ACR TI-RADS category: 3 Previous: 3 ? 2.? Location: Right mid. ?? ? Size: 1.1 x 1.1 x 1.2 cm, volume 0.7 mL. ?? ? Previously: 1.4 x 1.2 x 1.1 cm, volume 1.0 mL. ?? ? Nodule characteristics: ?? ? Composition: Solid (2). ?? ? Echogenicity: Isoechoic (1). ?? ? Shape: Not taller than wide (0). ?? ? Margins: Smooth (0). ?? ? Echogenic Foci: None (0).? ACR TI-RADS total points: 3 Previous: 3 ?? ? ACR TI-RADS category: 3 Previous: 3 ? ? ? 3.? Location: Right inferior. ?? ? Size: 0.7 x 0.6 x 0.7 cm, volume 0.1 mL. ?? ? Previously: 1.1 x 0.6 x 0.9 cm, volume 0.3 mL. ?? ? Nodule characteristics: ?? ? Composition: Solid/almost completely solid (2). ?? ? Echogenicity: Isoechoic (1). ?? ? Shape: Not taller than wide (0). ?? ? Margins: Smooth (0). ?? ? Echogenic Foci: None (0).? ACR TI-RADS total points: 3 Previous: 3 ?? ? ACR TI-RADS category: 3 Previous: 3 ? ? ? 4.? Location: Left mid. ?? ? Size: 0.8 x 0.7 x 0.7 cm, volume 0.2 mL. ?? ? Previously: 1.5 x 1.4 x 1.6 cm, volume 1.8 mL. ?? ? Nodule characteristics: ?? ? Composition: Mixed cystic and solid (1). ?? ? Echogenicity: Hyperechoic (1). ?? ? Shape: Not taller than wide (0). ?? ? Margins: Smooth (0). ?? ? Echogenic Foci: None (0).? ACR TI-RADS total points: 2 Previous: 2 ?? ? ACR TI-RADS category: 2 Previous: 2 Previously seen 1.1 cm nodule in the lower pole was not visualized on this study by the manager real estate NODES: No lymphadenopathy is seen in the tissue surrounding the thyroid gland. Labs: Laboratory Tests 08/14/22 16:16 25-OH Vitamin D To lovely 18.8 TSH 1.28 Free T4 1.29 PFSH Medical History ALL (acute lymphocytic leukemia) Breast mass, right Chronic constipation Essential hypertension Gluteal tendinitis of both buttocks Goiter diffuse, nontoxic Non-toxic multinodular goiter Obesity Retinopathy Thyroid nodule Vitamin D deficiency Surgical History Hx of section Hx of colonoscopy S/P fine needle aspiration Family History Father Lung cancer Mother Hypertension Social History Household Members: Children Household Members Other:: son and daughter in law Alcohol intake: never Patient Tobacco Use Status: Never used Tobacco Current occupational status: unemployed Physical Exam Vital Signs: Last Vital Signs Pulse 84 08/18/23 13:41 BP 140/82 H 08/18/23 13:41 BMI result Body Mass Index 31.6 Const Other: Thyroid gland is normal size weighs about 15 g . There are no palpable thyroid nodules. There is a negative Paragon sign Assessment & Plan Assessment & Plan (1) Non-toxic multinodular goiter: Code(s): E04.2 - Nontoxic multinodular goiter Plan: This is a 57-year-old female with a history of multinodular goiter. she underwent FNA biopsy with fl 07/26/2021 of a LMP 2.0 cm, RMP 1.7 cm and a RLP 1.5 cm as well as left lower pole thyroid nodule. Cytology results of all 3 were benign. She appears to be clinically euthyroid Plan is to order a follow-up thyroid ultrasound as well as TSH and free T4. We will continue to observe . Repeat thyroid ultrasound is stable, will discharge patient back to primary care provider in follow-up visit Orders: Orders US thyroid Today E04.2 - Nontoxic multinodular goiter Free T4 (Free Thyroxine) Today E04.2 - Nontoxic multinodular goiter Thyroid Stimulating Hormone Today E04.2 - Nontoxic multinodular goiter Coding Level of Care Code Est Pt Level 3 (03217) Diagnoses Non-toxic multinodular goiter E04.2
== END 2023-08-18 14:06 | disposition home or self-care (01) ==
PROVIDERS: Visit Provider Internal Medicine Endocrinology, Diabetes & Metabolism
DX: E04.2 Nontoxic multinodular goiter (principal)
CPT/HCPCS: 99213

== ENCOUNTER 2023-08-18 13:31 | Outpatient (REF) | payer MEDICAID, SELFPAY ==
[2023-08-18 15:44] LABS: Free T4 (Free Thyroxine) 1.17 ng/dL (0.71-1.85); Thyroid Stimulating Hormone 1.42 uIU/mL (0.32-4.0)
== END 2023-08-18 13:32 | disposition home or self-care (01) ==
LOC: HO.LAB 13:31
PROVIDERS: Visit Provider Internal Medicine Endocrinology, Diabetes & Metabolism
DX: E04.2 Nontoxic multinodular goiter (principal); Z79.899 Other long term (current) drug therapy
CPT/HCPCS: 36415; 84439; 84443; 99212

== ENCOUNTER 2023-09-09 11:25 | Outpatient (REF) | payer MEDICAID, SELFPAY ==
--- NOTE | ~2023-09-09 | US_ITS ---
EXAMINATION: US THYROID CLINICAL INFORMATION: Nontoxic multinodular goiter. COMPARISON: Ultrasound soft tissue head/neck thyroid dated 10/17/2021 and 03/05/2021. TECHNIQUE: Linear transducer grayscale and color Doppler examination with attention to the region of the thyroid. FINDINGS: SIZE: Measurements of the thyroid lobes and nodules are given in sagittal, anteroposterior and transverse dimensions respectively. Right Thyroid Lobe: 4.4 x 2.0 x 1.9 cm, volume 8.7 mL. Previously 4.0 x 2.5 x 1.9 cm, volume 9.9 mL. Parenchyma: The gland echotexture is homogeneous. Thyroid vascularity is normal. Left Thyroid Lobe: 4.4 x 2.1 x 1.8 cm, volume 8.5 mL. Previously 3.8 x 2.3 x 1.8 cm, volume 8.2 mL. Parenchyma: The gland echotexture is homogeneous. Thyroid vascularity is normal. Isthmus: 0.6 cm in maximum AP dimension. Previously 0.5 cm. Estimated total number of nodules greater than or equal to 1 cm: 4. Incident Response Manager nodules are described as follows: 1. Location: Right superior. Size: 1.2 x 0.9 x 1.1 cm, volume 0.6 mL. Previously: 1.1 x 1.0 x 1.1 cm, volume 0.7 mL. Nodule characteristics: Composition: Solid (2). Echogenicity: Isoechoic (1). Shape: Not taller than wide (0). Margins: Smooth (0). Echogenic Foci: None (0). ACR TI-RADS total points: 3 Previous: 3 ACR TI-RADS category: 3 Previous: 3 Significant change in size (>/= 20% in 2 dimensions and minimal increase of 2 mm or 50% or greater increase in volume): No Change in features: No Change in ACR TI-RADS risk category: No 2. Location: Right mid. Size: 1.3 x 1.1 x 1.2 cm, volume 0.9 mL. Previously: 1.1 x 1.1 x 1.2 cm, volume 0.7 mL. Nodule characteristics: Composition: Solid/almost completely solid (2). Echogenicity: Isoechoic (1). Shape: Not taller than wide (0). Margins: Smooth (0). Echogenic Foci: None (0). ACR TI-RADS total points: 3 Previous: 3 ACR TI-RADS category: 3 Previous: 3 Significant change in size (>/= 20% in 2 dimensions and minimal increase of 2 mm or 50% or greater increase in volume): No Change in features: No Change in ACR TI-RADS risk category: No 3. Location: Right inferior. Size: 1.1 x 0.5 x 0.6 cm, volume 0.2 mL. Previously: 0.7 x 0.6 x 0.7 cm, volume 0.3 mL. Nodule characteristics: Composition: Solid/almost completely solid (2). Echogenicity: Isoechoic (1). Shape: Not taller than wide (0). Margins: Smooth (0). Echogenic Foci: None (0). ACR TI-RADS total points: 3 Previous: 3 ACR TI-RADS category: 3 Previous: 3 Significant change in size (>/= 20% in 2 dimensions and minimal increase of 2 mm or 50% or greater increase in volume): No Change in features: No Change in ACR TI-RADS risk category: No 4. Location: Left inferior. Size: 0.8 x 0.6 x 0.8 cm, volume 0.2 mL. Previously: 0.8 x 0.7 x 0.7 cm, volume 0.2 mL. Nodule characteristics: Composition: Mixed cystic and solid (1). Echogenicity: Isoechoic (1). Shape: Not taller than wide (0). Margins: Smooth (0). Echogenic Foci: None (0). ACR TI-RADS total points: 2 Previous: 2 ACR TI-RADS category: 2 Previous: 2 Significant change in size (>/= 20% in 2 dimensions and minimal increase of 2 mm or 50% or greater increase in volume): No Change in features: No Change in ACR TI-RADS risk category: No 5. Location: Left inferior. Size: 1.0 x 1.1 x 1.0 cm, volume 0.6 mL. Previously: Not documented on the prior study. Nodule characteristics: Composition: Mixed cystic and solid (1). Echogenicity: Isoechoic (1). Shape: Not taller than wide (0). Margins: Smooth (0). Echogenic Foci: None (0). ACR TI-RADS total points: 2 ACR TI-RADS category: 2 NODES: No lymphadenopathy is seen in the tissue surrounding the thyroid gland. US/US thyroid IMPRESSION: Multiple thyroid nodules as detailed above, none of which meets criteria for follow-up. ACR TI-RADS RECOMMENDATION REFERENCE: Ultrasound-guided fine-needle aspiration, follow up ultrasound, no further followup. * TR1 (0 point) and TR2 (2 points): No FNA or followup * TR3 (3 points): FNA if more than or equal to 2.5 cm in maximum dimension, follow up ultrasound in 1, 3 and 5 years if 1.5 to 2.4 cm in maximum dimension. * TR4 (4-6 points): FNA if more than or equal to 1.5 cm in maximum dimension, follow up ultrasound in 1, 2, 3 and 5 years if 1 to 1.4 cm in maximum dimension. * TR5 (more than or equal to 7 points): FNA if more than or equal to 1 cm in maximum dimension, follow up ultrasound every year for 5 years if 0.5 to 0.9 cm in maximum dimension. * TR3, TR4 or TR5 nodules that are below the size threshold for follow up receive no followup.
== END 2023-09-09 11:26 | disposition home or self-care (01) ==
LOC: HO.US 11:25
PROVIDERS: Visit Provider Internal Medicine Endocrinology, Diabetes & Metabolism
DX: E04.2 Nontoxic multinodular goiter (principal)
CPT/HCPCS: 76536

== ENCOUNTER 2023-09-24 13:20 | Outpatient (AMB) | payer MEDICAID, SELFPAY ==
--- NOTE | 2023-09-24 13:35 | A.OFFVIS_ITS ---
Intake VS Expanded 09/24/23 13:38 09/29/23 22:38 Height 5 ft 0.7 in 5 ft Weight 162 lb 0.636 oz 162 lb BMI 30.9 31.6 Intake Visit Reasons: obesity/LVM Allergies No Known Allergies Allergy (Verified 08/18/23 13:43) HPI Nutrition Presentation Details Pt presents for MNT for Obesity. Pt reports lacking meal routine B coffee black , crackers with cheese snacks on crackers, cheese, fruits 4pm : rice/meat, water or juice fruits/day : no fruits , drinks juices dairy: cheese daily , not including yogurts , rarely has milk fish: not including vegetables: not including fried foods: 0-1 /m multivitamin - not including etoh- rarely smoking: rarely exercise : daily life activities QSG-Dmdspgm-Bo.Jeor Equation Height 5 ft Weight 162 lb Resting Metabolic Rate 1235.30 Calculated Activity Level Sedentary Calories Needed to Maintain Weight 1482.36 Diagnosis Nutrition problem #1 excessive energy intake As related to (etiology) #1 diagnosis As evidenced by (sign/symptom) #1 high BMI (30.9 on 09/2023) and knowledge deficit of diet Monitoring/Goals Nutrition problem monitoring weight Nutrition goal/outcome wt loss 5lbs in 2 months Learning/Education Readiness to learn good Most Recent Diabetes Results: No Data to Display [facility] Medical History (Updated 09/29/23 @ 22:34 by Jayne Ortiz, RD, LDN) Vitamin D deficiency Chronic constipation Non-toxic multinodular goiter Gluteal tendinitis of both buttocks Goiter diffuse, nontoxic Retinopathy Obesity Breast mass, right ALL (acute lymphocytic leukemia) Essential hypertension Thyroid nodule Surgical History Hx of colonoscopy S/P fine needle aspiration Hx of section Family History Father Lung cancer Mother Hypertension Social History Household Members: Children Household Members Other:: son and daughter in law Alcohol intake: never Patient Tobacco Use Status: Never used Tobacco Current occupational status: unemployed Assessment & Plan Assessment & Plan (1) Obesity: Code(s): E66.9 - Obesity, unspecified Plan: Wt: 74 Kg ( 09/2023 ) Est kcal needs as per MSJ: 1500 (40% carb, 30% protein/fat) Est fluid needs as per 25-30 ml/d: 2200 Est prot per day as per 1 g/kg bw: 74 Recommend fiber intake : 8-10 g per day and gradually increase to 25-28 g per day for women and 35-38 g for men or as tolerated Recommend sodium intake per day : less than 2000 mg Educated patient on: ( R = reviewed V = verbalizes understanding N/R = needs review N/A = not applicable * Food sources of carbohydrate, adequate serving sizes and its role in various health conditions: R * Differences between complex carbohydrates a simple carbohydrates, role of fiber in diet: R V N/R * Lean protein sources of foods: R * Differences between types of fats and role in diet (mono on saturated fat fatty acids, saturated fatty acids, trans fats): R basic low fat * Food sources of sodium in salt and healthy modifications for heart health in kidney health: NR * Vitamins and minerals: N/R * Healthy plate method concept: R * Physical activity: Benefits a precaution: R * Patient Instructions: Work on having 3 scheduled meals Follow healthy plate method Coding Level of Care Code Nutr Indiv Intake (92914) Diagnoses Obesity E66.9 Time Spent (min) 30
[2023-09-24 13:38] VITALS: BMI 30.9
[2023-09-29 22:38] VITALS: BMI 31.6
== END 2023-09-24 14:03 | disposition home or self-care (01) ==
PROVIDERS: Visit Provider Dietitian, Registered
DX: E66.9 Obesity, unspecified (principal)

== ENCOUNTER → 2023-09-24 13:20 | Outpatient (BNVA) | payer MEDICAID, SELFPAY | PROVIDERS: Visit Provider Dietitian, Registered | DX: E66.9 Obesity, unspecified (principal); Z68.30 Body mass index [BMI] 30.0-30.9, adult; Z71.3 Dietary counseling and surveillance | CPT/HCPCS: 97802 ==

== ENCOUNTER → 2024-01-21 13:43 | Outpatient (RCR) | payer MEDICAID, SELFPAY ==
[2020-02-29 09:21] VITALS: BP 154/80; PULSE 89; RESP 18; TEMP 36.4; O2SAT 98; BMI 34.1
--- NOTE | 2020-02-29 09:42 | P.CNHO_ITS ---
Subjective - Subjective Chief complaint: Right hip pain Patient: new to practice Primary Care Provider: Kortney Cuenca NP HPI - Consult Narrative Reason for consult: abnormal MRI, history of acute lymphoblastic leukemia Narrative: Jami Lopez is a 54 year old female with a past medical history significant for ALL that was diagnosed and treated in [place] in 1974 when patient was around 9 years of age. She was followed by oncologist in [place] until 1986. She moved to [place] 2 years back and established with physicians locally. She presented with 2 months history of right hip pain radiating down her right leg for which she underwent imaging study. MRI performed 02/04/2020 showed an irregular sclerotic focus in the right sacral ala measuring 1.2 x 1.1 x 1.4 cm, findings may represent artifact versus minimal adjacent enhancement. No additional abnormal marrow signal, no stress reaction or fracture. Bilateral gluteus medius tendinosis as well as mild right hamstring tendinosis. She denies any other complaints such as fever, chills, night sweats or unexplained weight loss. No palpable lymph nodes. Her hip pain is worse when she walks and is about the same for the last 2 months. Review of Systems - Constitutional Reports as per HPI, Reports no additional constitutional complaints - Cardiovascular Reports no additional cardiovascular complaints - Gastrointestinal Reports no additional gastrointestinal complaints - Musculoskeletal Reports as per HPI, Reports back pain, Reports radiating pain into limb Oncology Screenings - ECOG Performance Status ECOG Performance Status: 1 [facility] Medical History: Medical History (Last Updated 02/29/20 @ 07:46 by Cecilia Mederos RN) ALL (acute lymphocytic leukemia) Breast mass, right Essential hypertension Gluteal tendinitis of both buttocks Goiter diffuse, nontoxic Obesity Retinopathy Thyroid nodule Smoking status: Never smoker Alcohol intake: never Current occupational status: unemployed Home Medications and Allergies Home Medications Medication Instructions Recorded Confirmed Type cyclobenzaprine 5 mg PO DAILY PRN 02/29/20 02/29/20 History ibuprofen 400 mg PO Q6H PRN 02/29/20 02/29/20 History lisinopril 30 mg PO DAILY 02/29/20 02/29/20 History paroxetine HCl 10 mg PO DAILY 02/29/20 02/29/20 History Allergies Allergy/AdvReac Type Severity Reaction Status Date / Time No Known Allergies Allergy Verified 02/29/20 07:47 Physical Exam Vital signs: Vital Signs Temp 97.6 F 02/29/20 09:21 Pulse 89 02/29/20 09:21 Resp 18 02/29/20 09:21 BP 154/80 H 02/29/20 09:21 Pulse Ox 98 02/29/20 09:21 Intake & Output 02/28/20 02/29/20 02/29/20 18:59 06:59 18:59 Other: Weight 76.657 kg Weight 76.657 kg - Constitutional Present: no acute distress - Routine HEENT Exam Head: Present: normal inspection Eye: Present: EOMI, normal appearance - Routine Neck Exam Present: supple. Absent: lymphadenopathy - Routine Chest/Breast/Axilla Exam Breast: Present: Normal Exam. Absent: mass, swelling - Routine Respiratory Exam Present: CTAB - Routine Cardiovascular Exam Cardiovascular: Present: RRR, S1, S2 - Routine Abdominal Exam Present: normal bowel sounds. Absent: organomegaly - Routine Extremities Exam Present: normal inspection. Absent: calf tenderness - Routine Skin Exam Present: intact. Absent: rash - Routine Neurological Exam Present: oriented X3 Hem/Onc Consult Result - Labs CBC & Chem 7: 02/29/20 10:45 02/29/20 10:45 Assessment and Plan (1) Abnormal MRI Status: Acute (2) ALL (acute lymphocytic leukemia) Status: Acute This is a pleasant 54-year-old woman with history of acute lymphoblastic leukemia treated in 1974. She received high-dose chemotherapy followed by brain radiation therapy and has been in remission ever since. She presented with right hip pain, MRI shows a nonspecific area of sclerosis in the right sacral ala without any bone marrow edema or abnormal signal. This is most probably a benign finding. I will review this with radiologist as well. Her blood work today is normal except for mild lymphopenia. She has no constitutional symptoms. A few other hematological tests are pending. Patient was advised about screening mammogram and colonoscopy. She is at risk for secondary cancers because of her prior treatment for ALL. Depending on blood tests and review of imaging studies, further recommendations to be made. I thank you very much for this referral. Follow-up in 6-8 weeks.
[2020-02-29 10:48] LABS: MANUAL DIFF FLAG NO
[2020-02-29 11:02] LABS: Basophils Percent Auto 0.3 % (0-2); Eosinophils Absolute Auto 0.1 X10*3/uL (0.0-0.4); Eosinophils Percent Auto 0.8 % (0-4); Hematocrit 39.8 % (37-47); Hemoglobin 13.6 g/dl (12.0-16.0); Imm Gran Abs Auto 0.02 X10*3/uL (0.00-0.03); Imm Gran Pct Auto 0.3 % (0.0-0.4); Lymphocytes Percent Auto 16.3 % (20-40); Mean Corpuscular HGB Conc 34.2 g/dl (31.0-35.0); Mean Corpuscular Hemoglobin 29.6 pg (27.0-33.0); Mean Corpuscular Volume 86.7 fL (80-98); Mean Platelet Volume 10.4 fL (9.4-12.3); Monocytes Absolute Auto 0.4 X10*3/uL (0.1-1.2); Monocytes Percent Auto 6.4 % (2-11); Neutrophils Absolute Auto 4.6 X10*3/uL (2.0-8.3); Neutrophils Percent Auto 75.9 % (45-73); Platelet Count 256 X10*3/uL (160-400); Red Blood Count 4.59 X10*6/uL (4.20-5.50); Red Cell Distribution Width 12.2 % (11.0-16.0); White Blood Count 6.1 X10*3/uL (4.8-10.8)
[2020-02-29 11:34] LABS: Alanine Aminotransferase 30 U/L (0-31); Albumin Level 4.2 g/dL (3.5-5.0); Alkaline Phosphatase 77 U/L (39-117); Anion Gap 10 (12-20); Aspartate Amino Transferase 19 U/L (5-31); Bilirubin Total 0.6 mg/dL (0.0-1.0); Blood Urea Nitrogen 9 mg/dL (9-16); Calcium 9.1 mg/dL (8.4-10.2); Carbon Dioxide 28 mmol/L (22-29); Chloride 105 mmol/L (96-108); Estimated Glomerular Filt Rate > 60; Glucose Random 135 mg/dL (60-115); Potassium 4.1 mmol/l (3.3-5.1); Sodium 139 mmol/L (135-145); Total Protein 6.9 g/dL (6.5-8.0)
[2020-02-29 12:18] LABS: Folate 15.7 ng/mL (> or = 4.0); Vitamin B12 494 pg/mL (200-900)
[2020-03-02 10:41] LABS: IgA 340 mg/dL (47-310); IgG 1237 mg/dL (600-1640); IgM 53 mg/dL (50-300)
[2020-03-02 22:36] LABS: Prot Elec - Alpha1 0.3 g/dL (0.2-0.3); Prot Elec - Alpha2 0.6 g/dL (0.5-0.9); Prot Elec - Beta 1 0.4 g/dL (0.4-0.6); Prot Elec - Beta 2 0.4 g/dL (0.2-0.5); Prot Elec - Gamma 1.1 g/dL (0.8-1.7); Prot Elec - Total Protein 6.8 g/dL (6.1-8.1)
--- NOTE | 2020-05-05 13:47 | P.PNHO_ITS ---
Hem/Onc Clinic Telehealth - Telehealth Location of Provider rendering services: Office Location of Patient: Home Patient Identification confirmed using: Name, : Yes Telehealth Method: Telephone Patient verbally consented to billing insurance company: Yes Patient informed of any privacy concerns related to visit: Yes Medical Summary - Medical Summary Date of Service: 05/05/20 Chief complaint: Scheduled follow-up Medical Summary: Diagnosis: Sclerotic focus right sacrum on MRI She presented with 2 months history of right hip pain radiating down her right leg for which she underwent imaging study. MRI performed 02/04/2020 showed an irregular sclerotic focus in the right sacral ala measuring 1.2 x 1.1 x 1.4 cm, findings may represent artifact versus minimal adjacent enhancement. No additional abnormal marrow signal, no stress reaction or fracture. Bilateral gluteus medius tendinosis as well as mild right hamstring tendinosis. Interval History Interval history: This is scheduled follow-up for patient. Tele visit performed today because of COVID-19 pandemic guidelines. Today's visit was for going over blood work from her last visit. She reports no complaints or new problems today. She denies any other complaints such as fever, chills, night sweats or unexplained weight loss. Review of Systems - Constitutional Reports as per HPI, Reports no additional constitutional complaints Home Medications and Allergies Home Medications Medication Instructions Recorded Confirmed Type lisinopril 30 mg PO DAILY 02/29/20 03/17/20 History Allergies Allergy/AdvReac Type Severity Reaction Status Date / Time No Known Allergies Allergy Verified 02/29/20 07:47 Exam Vital signs: Vital Signs Temp 97.6 F 02/29/20 09:21 Pulse 89 02/29/20 09:21 Resp 18 02/29/20 09:21 BP 154/80 H 02/29/20 09:21 Pulse Ox 98 02/29/20 09:21 Weight 76.657 kg Body Mass Index 34.1 - Constitutional Present: no acute distress - Routine HEENT Exam Head: Present: normal inspection - Routine Respiratory Exam Present: CTAB - Routine Cardiovascular Exam Cardiovascular: Present: RRR, S1, S2 - Routine Abdominal Exam Present: normal bowel sounds. Absent: organomegaly - Routine Extremities Exam Present: normal inspection. Absent: calf tenderness - Routine Skin Exam Present: intact. Absent: rash - Routine Neurological Exam Present: oriented X3 Data - Labs CBC & Chem 7: 02/29/20 10:45 02/29/20 10:45 Labs: 02/29/20 10:45 Complete Blood Count Auto Diff Routine Comprehensive Met. Panel Routine Immunofixation Pnl, Serum Routine Protein Electrophoresis, Serum Routine Vitamin B12 and Folate Routine Laboratory Last Values WBC 6.1 X10*3/uL (4.8-10.8) 02/29/20 10:45 RBC 4.59 X10*6/uL (4.20-5.50) 02/29/20 10:45 Hgb 13.6 g/dl (12.0-16.0) 02/29/20 10:45 Hct 39.8 % (37-47) 02/29/20 10:45 MCV 86.7 fL (80-98) 02/29/20 10:45 MCH 29.6 pg (27.0-33.0) 02/29/20 10:45 MCHC 34.2 g/dl (31.0-35.0) 02/29/20 10:45 RDW 12.2 % (11.0-16.0) 02/29/20 10:45 Plt Count 256 X10*3/uL (160-400) 02/29/20 10:45 MPV 10.4 fL (9.4-12.3) 02/29/20 10:45 Immature Gran % (Auto) 0.3 % (0.0-0.4) 02/29/20 10:45 Neut % (Auto) 75.9 % (45-73) H 02/29/20 10:45 Lymph % (Auto) 16.3 % (20-40) L 02/29/20 10:45 [place] % (Auto) 6.4 % (2-11) 02/29/20 10:45 Eos % (Auto) 0.8 % (0-4) 02/29/20 10:45 Baso % (Auto) 0.3 % (0-2) 02/29/20 10:45 Neut # (Auto) 4.6 X10*3/uL (2.0-8.3) 02/29/20 10:45 Lymph # (Auto) 1.0 X10*3/uL (1.2-4.9) L 02/29/20 10:45 [place] # (Auto) 0.4 X10*3/uL (0.1-1.2) 02/29/20 10:45 Eos # (Auto) 0.1 X10*3/uL (0.0-0.4) 02/29/20 10:45 Baso # (Auto) 0.0 X10*3/uL (0.0-0.2) 02/29/20 10:45 Abs Immat Gran (auto) 0.02 X10*3/uL (0.00-0.03) 02/29/20 10:45 Absolute Nucleated RBC 0.000 X10*3/uL (0.0-0.012) 02/29/20 10:45 Nucleated RBC % (auto) 0.0 /100WBC (0.0-0.2) 02/29/20 10:45 Sodium 139 mmol/L (135-145) 02/29/20 10:45 Potassium 4.1 mmol/l (3.3-5.1) 02/29/20 10:45 Chloride 105 mmol/L (96-108) 02/29/20 10:45 Carbon Dioxide 28 mmol/L (22-29) 02/29/20 10:45 Anion Gap 10 (12-20) L 02/29/20 10:45 BUN 9 mg/dL (9-16) 02/29/20 10:45 Creatinine 0.71 mg/dL (0.5-1.4) 02/29/20 10:45 Estim Creat Clear Calc 79.0 02/29/20 10:45 Estimated GFR > 60 02/29/20 10:45 Random Glucose 135 mg/dL (60-115) H 02/29/20 10:45 Calcium 9.1 mg/dL (8.4-10.2) 02/29/20 10:45 Total Bilirubin 0.6 mg/dL (0.0-1.0) 02/29/20 10:45 AST 19 U/L (5-31) 02/29/20 10:45 ALT 30 U/L (0-31) 02/29/20 10:45 Alkaline Phosphatase 77 U/L (39-117) 02/29/20 10:45 Total Protein 6.9 g/dL (6.5-8.0) 02/29/20 10:45 Total Protein (PEP) 6.8 g/dL (6.1-8.1) 02/29/20 10:45 Albumin 4.2 g/dL (3.5-5.0) 02/29/20 10:45 Albumin (PEP) 4.0 g/dL (3.8-4.8) 02/29/20 10:45 Hfqps-0-Evpxfmrxz 0.3 g/dL (0.2-0.3) 02/29/20 10:45 Qzqkl-4-Xicymjlgf 0.6 g/dL (0.5-0.9) 02/29/20 10:45 Nyhs-9-Vcebsyey 0.4 g/dL (0.4-0.6) 02/29/20 10:45 Rgpd-6-Keoqxkkg 0.4 g/dL (0.2-0.5) 02/29/20 10:45 Gamma Globulins 1.1 g/dL (0.8-1.7) 02/29/20 10:45 Abnorm Protein Band 1 TNP 02/29/20 10:45 Abnorm Protein Band 2 TNP 02/29/20 10:45 Abnorm Protein Band 3 TNP 02/29/20 10:45 PEP Interpretation SEE NOTE 02/29/20 10:45 Vitamin B12 494 pg/mL (200-900) 02/29/20 10:45 Folate 15.7 ng/mL (> or = 4.0) 02/29/20 10:45 IgG Total 1237 mg/dL (600-1640) 02/29/20 10:45 IgA Total 340 mg/dL (47-310) H 02/29/20 10:45 IgM 53 mg/dL (50-300) 02/29/20 10:45 DARWIN Interpretation SEE NOTE 02/29/20 10:45 Progress Note: A/P (1) Abnormal MRI Status: Acute Assessment and plan: 1. This is a pleasant 54-year-old woman with history of acute lymphoblastic leukemia treated in 1974. She received high-dose chemotherapy followed by brain radiation therapy and has been in remission ever since. She presented with 2 months history of right hip pain radiating down her right leg for which she underwent imaging study. MRI performed 02/04/2020 showed an irregular sclerotic focus in the right sacral ala measuring 1.2 x 1.1 x 1.4 cm, findings may represent artifact versus minimal adjacent enhancement. No additional abnormal marrow signal, no stress reaction or fracture. Bilateral gluteus medius tendinosis as well as mild right hamstring tendinosis. Hematological workup including CBC, and immunofixation serum protein electrophoresis, immunofixation, folate levels were all normal. Patient was given results and explained that this is probably a benign finding. She was advised to continue to follow up with her PCP for yearly physical examination and blood work. (2) ALL (acute lymphocytic leukemia) Status: Acute - Time Spent With Patient Total time spent is greater than 50% in coordination of care (as documented) at patient's floor/unit and/or counseling patient: less than 15 minutes
== END | disposition home or self-care (01) ==
LOC: HO.ONC 02-29 09:02
PROVIDERS: PCP Emergency Medicine; Referring Provider Emergency Medicine; Visit Provider Internal Medicine
DX: R93.7 Abnormal findings on diagnostic imaging of other parts of musculoskeletal system (principal); C91.01 Acute lymphoblastic leukemia, in remission; Z92.21 Personal history of antineoplastic chemotherapy; Z92.3 Personal history of irradiation
CPT/HCPCS: 36415; 80053; 82607; 82746; 82784; 84155; 84165; 85025; 86334; 99203

== ENCOUNTER 2024-02-17 12:38 | Outpatient (AMB) | payer MEDICAID, SELFPAY ==
--- NOTE | 2024-02-17 12:40 | MHC.OFFVIS ---
Vital Signs 02/17/24 12:41 02/17/24 12:54 Height 5 ft Weight 165 lb 12.602 oz BMI 32.4 BP 148/76 H Blood Pressure Location Lt brachial Position Sitting Pulse 105 H 100 Pulse Source Pulse Oximeter Palpation Intake Visit Reasons: F/U NTMNG/CONFIRMED Intake Note: Patient present today for NTMNG follow up visit. Youth Support Worker Required: Yes Youth Support Worker Language: Jordan Worker Services: Youth Support Worker Present Youth Support Worker Name: Melinda [id number] Information Interpreted: non-clinical & clinical Accompanied by: Self / Same As Patient Allergies No Known Allergies Allergy (Verified 02/17/24 12:45) HPI Comments Details: 58-year-old female with past medical history significant for 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 She was previously followed by Dr. Rodriguez, last visit was with Dr. Chan in July 2023. HPI from prior visit FNA biopsy with Dr. Bo 05/28/2019 left lower 3.5 cm nodule. FNA biopsy with Dr. Rodriguez 07/26/2021 of left midpole 2 cm, right midpole 1.7 cm and right lower pole 1.5 cm thyroid nodule. Cytology results for all 3 were benign. Most recent thyroid ultrasound in August 2023 showed stable size of the nodules. I reviewed the images myself which show 3 right-sided nodules, the right midpole and lower pole have been biopsied before. Also showed left mid and inferior nodules which have both been biopsied before previously.. No compressive symptoms. Minor pressure sensation intermittently. Most recent blood work from July 2023 showed normal thyroid function. No symptoms of hypothyroidism or hyperthyroidism. Weight stable. HR at 100 but she feels she is winded because of taking the stairs. Sister had thyroid disease but no one in family has thyroid cancer. Review of systems Constitutional: no fevers, chills or weight loss HEENT: no changes in vision Cardiac: No chest pain, discomfort or palpitations. Pulmonary: No SOB GI:No abdominal pain, no nausea or vomiting, no anorexia, no blood in stool : no burning micturition, dysuria or increase in urinary frequency Physical exam General: sitting comfortably in no acute distress HEENT: normocephalic/atraumatic, moist oral mucosa Neck: supple, symmetrical, no thyromegaly Cardiac: normal heart sounds Pulm: normal breath sounds B/L, no added breath sounds Abd: not distended, no tenderness Extremities: no edema, no signs of myxedema Neuro: AAO x3, Speech: normal, no facial droop, moving all 4 extremities [facility] Medical History (Updated 09/29/23 @ 22:34 by Jayne Ortiz, RD, LDN) Vitamin D deficiency Chronic constipation Non-toxic multinodular goiter Gluteal tendinitis of both buttocks Goiter diffuse, nontoxic Retinopathy Obesity Breast mass, right ALL (acute lymphocytic leukemia) Essential hypertension Thyroid nodule Surgical History Hx of colonoscopy S/P fine needle aspiration Hx of section Family History Father Lung cancer Mother Hypertension Social History Household Members: Children Household Members Other:: son and daughter in law Alcohol intake: never Patient Tobacco Use Status: Never used Tobacco Current occupational status: unemployed Results Reviewed Results Reviewed: Laboratory Tests 08/14/22 11/16/22 08/18/23 16:16 10:02 14:22 TSH 1.28 0.94 1.42 Free T4 1.29 1.16 1.17 US THYROID 09/16 CLINICAL INFORMATION: Nontoxic multinodular goiter. COMPARISON: Ultrasound soft tissue head/neck thyroid dated 10/17/2021 and 03/05/2021. TECHNIQUE: Linear transducer grayscale and color Doppler examination with attention to the region of the thyroid. FINDINGS: SIZE: Measurements of the thyroid lobes and nodules are given in sagittal, anteroposterior and transverse dimensions respectively. Right Thyroid Lobe: 4.4 x 2.0 x 1.9 cm, volume 8.7 mL. Previously 4.0 x 2.5 x 1.9 cm, volume 9.9 mL. Parenchyma: The gland echotexture is homogeneous. Thyroid vascularity is normal. Left Thyroid Lobe: 4.4 x 2.1 x 1.8 cm, volume 8.5 mL. Previously 3.8 x 2.3 x 1.8 cm, volume 8.2 mL. Parenchyma: The gland echotexture is homogeneous. Thyroid vascularity is normal. Isthmus: 0.6 cm in maximum AP dimension. Previously 0.5 cm. Estimated total number of nodules greater than or equal to 1 cm: 4. Service Station Manager nodules are described as follows: 1. Location: Right superior. Size: 1.2 x 0.9 x 1.1 cm, volume 0.6 mL. Previously: 1.1 x 1.0 x 1.1 cm, volume 0.7 mL. Nodule characteristics: Composition: Solid (2). Echogenicity: Isoechoic (1). Shape: Not taller than wide (0). Margins: Smooth (0). Echogenic Foci: None (0). ACR TI-RADS total points: 3 Previous: 3 ACR TI-RADS category: 3 Previous: 3 Significant change in size (>/= 20% in 2 dimensions and minimal increase of 2 mm or 50% or greater increase in volume): No Change in features: No Change in ACR TI-RADS risk category: No 2. Location: Right mid. Size: 1.3 x 1.1 x 1.2 cm, volume 0.9 mL. Previously: 1.1 x 1.1 x 1.2 cm, volume 0.7 mL. Nodule characteristics: Composition: Solid/almost completely solid (2). Echogenicity: Isoechoic (1). Shape: Not taller than wide (0). Margins: Smooth (0). Echogenic Foci: None (0). ACR TI-RADS total points: 3 Previous: 3 ACR TI-RADS category: 3 Previous: 3 Significant change in size (>/= 20% in 2 dimensions and minimal increase of 2 mm or 50% or greater increase in volume): No Change in features: No Change in ACR TI-RADS risk category: No 3. Location: Right inferior. Size: 1.1 x 0.5 x 0.6 cm, volume 0.2 mL. Previously: 0.7 x 0.6 x 0.7 cm, volume 0.3 mL. Nodule characteristics: Composition: Solid/almost completely solid (2). Echogenicity: Isoechoic (1). Shape: Not taller than wide (0). Margins: Smooth (0). Echogenic Foci: None (0). ACR TI-RADS total points: 3 Previous: 3 ACR TI-RADS category: 3 Previous: 3 Significant change in size (>/= 20% in 2 dimensions and minimal increase of 2 mm or 50% or greater increase in volume): No Change in features: No Change in ACR TI-RADS risk category: No 4. Location: Left inferior. Size: 0.8 x 0.6 x 0.8 cm, volume 0.2 mL. Previously: 0.8 x 0.7 x 0.7 cm, volume 0.2 mL. Nodule characteristics: Composition: Mixed cystic and solid (1). Echogenicity: Isoechoic (1). Shape: Not taller than wide (0). Margins: Smooth (0). Echogenic Foci: None (0). ACR TI-RADS total points: 2 Previous: 2 ACR TI-RADS category: 2 Previous: 2 Significant change in size (>/= 20% in 2 dimensions and minimal increase of 2 mm or 50% or greater increase in volume): No Change in features: No Change in ACR TI-RADS risk category: No 5. Location: Left inferior. Size: 1.0 x 1.1 x 1.0 cm, volume 0.6 mL. Previously: Not documented on the prior study. Nodule characteristics: Composition: Mixed cystic and solid (1). Echogenicity: Isoechoic (1). Shape: Not taller than wide (0). Margins: Smooth (0). Echogenic Foci: None (0). ACR TI-RADS total points: 2 ACR TI-RADS category: 2 NODES: No lymphadenopathy is seen in the tissue surrounding the thyroid gland. US/US thyroid IMPRESSION: Multiple thyroid nodules as detailed above, none of which meets criteria for follow-up. Assessment & Plan Assessment & Plan (1) Non-toxic multinodular goiter: Code(s): E04.2 - Nontoxic multinodular goiter Category: Medical Plan: Patient with no family history of thyroid cancer , with history of radiation in 1970 for ALL, who has NTMNG since 2019. She has had FNA biopsy of the left lower pole 3.5 cm nodule in May 2019, results not available, subsequently had FNA of the right midpole, right lower pole, left midpole nodules in September 2021 with benign cytology for all of them. Most recent thyroid ultrasound in August 2023 showed stable size of the nodules. I reviewed the images myself which show 3 right-sided nodules, the right midpole and lower pole have been biopsied before. Also showed left mid and inferior nodules which have both been biopsied before previously.. Given stable size of the nodules, would recommend repeat ultrasound in 2 years in August 2025. We will see her back in 1 year to see if she has any clinical changes. We will obtain TFTs prior to next visit. She is biochemically euthyroid per her last labs from July 2023. No compressive symptoms. Plan: -ultrasound thyroid 08/2025 -follow up in 1 year -TSH and free T4 to be done before follow up appointment Plan I spent 30 minutes in reviewing the record, seeing the patient and documenting in the medical record. Orders: Orders Thyroid Stimulating Hormone 1 Year E04.2 - Nontoxic multinodular goiter Free T4 (Free Thyroxine) 1 Year E04.2 - Nontoxic multinodular goiter Patient Instructions: we will see you in 1 year for follow up Do blood work before that appointment Next ultrasound will be in August 2025 Nos veremos en 1 a?o para seguimiento. Hacer an?lisis de jason antes de tucker alecia. La pr?xima ecograf?a ser? en kole de 2025. Coding Level of Care Code Est Pt Level 4 (26696) Diagnoses Non-toxic multinodular goiter E04.2 Time Spent (min) 30
[2024-02-17 12:41] VITALS: BP 148/76; PULSE 105; BMI 32.4
[2024-02-17 12:54] VITALS: PULSE 100
== END 2024-02-17 13:02 | disposition home or self-care (01) ==
PROVIDERS: Visit Provider Student in an Organized Health Care Education/Training Program
DX: E04.2 Nontoxic multinodular goiter (principal)
CPT/HCPCS: 99214

== ENCOUNTER → 2024-02-17 12:38 | Outpatient (BNVA) | payer MEDICAID, SELFPAY | PROVIDERS: Visit Provider Student in an Organized Health Care Education/Training Program | DX: E04.2 Nontoxic multinodular goiter (principal) | CPT/HCPCS: 99212 ==

== ENCOUNTER 2024-03-29 15:41 | Outpatient (REF) | payer MEDICAID, SELFPAY ==
--- NOTE | ~2024-03-29 | MM_ITS ---
EXAMINATION: MM SCREENING DIGITAL BREAST TOMOSYNTHESIS, BILATERAL CLINICAL INFORMATION: Screening. Asymptomatic. COMPARISON: Mammography: Comparison is made with available priors TECHNIQUE: Digital breast mammography with tomosynthesis is performed in both the craniocaudal and mediolateral oblique views along with computer-aided detection (CAD). FINDINGS: The breasts are heterogeneously dense, which may obscure small masses (ACR BI-RADS breast composition Category c). There are no significant masses, abnormal calcifications, or other abnormalities. MM/MM tomosynthesis screening BI IMPRESSION: No mammographic evidence of malignancy. ASSESSMENT: BI-RADS BI-RADS 1 - Negative RECOMMENDATION: Routine annual mammography screening. 1 year F/U This examination should not preclude the clinical evaluation of a suspicious palpable abnormality. This patient's information was entered into a reminder system with a target due date for their next mammogram. Electronically signed by: Katrina Galloway DO 04/07/2024 12:20 PM [facility]
== END 2024-03-29 15:42 | disposition home or self-care (01) ==
LOC: HO.MAMMO 15:41
PROVIDERS: PCP Nurse Practitioner Family; Visit Provider Nurse Practitioner Family
DX: Z12.31 Encounter for screening mammogram for malignant neoplasm of breast (principal)
CPT/HCPCS: 77063; 77067

== ENCOUNTER → 2024-03-29 15:45 | Outpatient (BNV) | payer MEDICAID, SELFPAY | PROVIDERS: PCP Nurse Practitioner Family; Visit Provider Internal Medicine | DX: Z12.31 Encounter for screening mammogram for malignant neoplasm of breast (principal) | CPT/HCPCS: 77063; 77067 ==

== ENCOUNTER 2024-06-15 08:56 | Outpatient (REF) | payer MEDICAID, SELFPAY ==
[2024-06-15 11:27] LABS: MANUAL DIFF FLAG NO
[2024-06-15 11:33] LABS: Basophils Percent Auto 0.3 % (0-2); Eosinophils Absolute Auto 0.1 X10*3/uL (0.0-0.4); Eosinophils Percent Auto 0.8 % (0-4); Hematocrit 40.4 % (37.0-47.0); Hemoglobin 13.6 g/dl (12.0-16.0); Imm Gran Abs Auto 0.03 X10*3/uL (0.00-0.03); Imm Gran Pct Auto 0.4 % (0.0-0.4); Lymphocytes Absolute Auto 1.4 X10*3/uL (1.2-4.9); Lymphocytes Percent Auto 18.5 % (20-40); Mean Corpuscular HGB Conc 33.7 g/dl (31.0-35.0); Mean Corpuscular Hemoglobin 29.3 pg (27.0-33.0); Mean Corpuscular Volume 87.1 fL (80.0-98.0); Mean Platelet Volume 10.5 fL (9.4-12.3); Monocytes Absolute Auto 0.4 X10*3/uL (0.1-1.2); Monocytes Percent Auto 5.6 % (2-11); Neutrophils Absolute Auto 5.6 x10*3/uL (2.0-8.3); Neutrophils Percent Auto 74.4 % (45-73); Platelet Count 255 X10*3/uL (160-400); Red Blood Count 4.64 X10*6/uL (4.20-5.50); Red Cell Distribution Width 12.1 % (11.0-16.0); White Blood Count 7.5 X10*3/uL (4.8-10.8)
[2024-06-15 11:39] LABS: Estimated Average Glucose 85 mg/dL; Hemoglobin A1c % 4.6 % (<6.0); Total Hemoglobin (HGBA1C) 3482.6259 umol/L
[2024-06-15 12:07] LABS: Alanine Aminotransferase 19 U/L (0-31); Albumin Level 4.1 g/dL (3.5-5.0); Alkaline Phosphatase 74 U/L (39-117); Anion Gap 9 (12-20); Aspartate Amino Transferase 20 U/L (5-31); Bilirubin Total 0.9 mg/dL (0.0-1.0); Blood Urea Nitrogen 13 mg/dL (9-16); Calcium 8.6 mg/dL (8.4-10.2); Carbon Dioxide 29 mmol/L (22-29); Chloride 106 mmol/L (96-108); Cholesterol 161 mg/dL (<200); Estimated Glomerular Filt Rate > 60; Glucose Random 93 mg/dL (60-115); HDL Cholesterol 34 mg/dL (>40); LDL Cholesterol Calculated 110 mg/dL (<100); Potassium 3.5 mmol/L (3.3-5.1); Sodium 140 mmol/L (135-145); Total Protein 7.3 g/dL (6.5-8.0); Triglycerides 88 mg/dL (<150)
[2024-06-15 12:13] LABS: TSH reflex Free T4 0.94 uIU/mL (0.32-4.0); Vitamin D 25-OH Total 54.6 ng/mL (>30)
== END 2024-06-15 08:57 | disposition home or self-care (01) ==
LOC: HO.HHCL 08:56
PROVIDERS: Visit Provider Nurse Practitioner Family
DX: C91.01 Acute lymphoblastic leukemia, in remission (principal); I10 Essential (primary) hypertension; E04.1 Nontoxic single thyroid nodule; E55.9 Vitamin D deficiency, unspecified
CPT/HCPCS: 36415; 80053; 80061; 82306; 83036; 84443; 85025

== ENCOUNTER 2024-06-22 13:07 | Outpatient (REF) | payer MEDICAID, SELFPAY ==
--- NOTE | ~2024-06-22 | US_ITS ---
EXAMINATION: US THYROID CLINICAL INFORMATION: Thyroid nodule COMPARISON: Ultrasound thyroid 10/17/2021 TECHNIQUE: Linear transducer grayscale and color Doppler examination with attention to the region of the thyroid. FINDINGS: SIZE: Measurements of the thyroid lobes and nodules are given in sagittal, anteroposterior and transverse dimensions respectively. Right Thyroid Lobe: 5.0 x 2.7 x 2.1 cm, volume 15.0 mL. Parenchyma: The gland echotexture is heterogenous. Thyroid vascularity is normal. Previously measured 4.4 x 2.0 x 1.9 cm and volume 8.7 mL. Left Thyroid Lobe: 4.1 x 2.1 x 1.9 cm cm, volume 8.7 mL. Parenchyma: The gland echotexture is heterogeneous. Thyroid vascularity is normal. Previously measured 4.4 x 2.1 x 1.8 cm in volume 0.5 mL. Isthmus: 4.9 cm in maximum AP dimension. Previous measurement 0.60 cm Estimated total number of nodules greater than or equal to 1 cm: 3. Interior Design Assistant nodules are described as follows: 1. Location: Right mid pole. Size: 1.1 x 0.50 x 0.90 cm, volume 0.25 mL. Previously measured 1.2 x 0.90 x 1.1 cm and 0.60ml Nodule characteristics: Composition: Spongiform (0). Echogenicity: None Shape: Wider Margins: Smooth (0). Echogenic Foci: None. ACR TI-RADS total points: 0 ACR TI-RADS category: 1 2. Location: Right upper pole. Size: 1.5 x 0.92 x 1.1 cm, volume 0.75 mL. Previously not seen. Nodule characteristics: Composition: Solid (2). Echogenicity: None Shape: Wider Margins: Smooth (0). Echogenic Foci: None. ACR TI-RADS total points: 3 ACR TI-RADS category: 3 3. Location: Left midpole. Size: 1.2 x 0.82 x 0.98 cm, volume 2.50 mL. Not seen previously. Nodule characteristics: Composition: Solid/almost completely solid (2). Echogenicity: Hyperechoic (1). Shape: Wider Margins: Smooth (0). Echogenic Foci: None (0). ACR TI-RADS total points: 4 ACR TI-RADS category: 4 4. Location: Mid pole. Size: 0.60 x 0.50 x 0.60 cm, volume 0.10 mL. Nodule characteristics: Composition: Solid (2). Echogenicity: Hypoechoic Shape: Wider Margins: Smooth (0). Echogenic Foci: None (0). ACR TI-RADS total points: 4. Previously 2 ACR TI-RADS category: 4. Previously 2. A small cystic nodule is seen in lower pole measuring subcentimeter with total points 4 and Ti-RADS Category 4. NODES: No lymphadenopathy is seen in the tissue surrounding the thyroid gland. US/US thyroid IMPRESSION: Large right lobe with heterogeneous thyroid gland but normal vascularity. There are at least 3 nodules which are category 4 measuring around 1 cm. Recommend follow-up in one year. ACR TI-RADS RECOMMENDATION REFERENCE: Ultrasound-guided fine-needle aspiration, followup ultrasound, no further follow up. * TR1 (0 point) and TR2 (2 points): No FNA or follow up. * TR3 (3 points): FNA if more than or equal to 2.5 cm in maximum dimension, followup ultrasound in 1, 3 and 5 years if 1.5 to 2.4 cm in maximum dimension. * TR4 (4-6 points): FNA if more than or equal to 1.5 cm in maximum dimension, followup ultrasound in 1, 2, 3 and 5 years if 1 to 1.4 cm in maximum dimension. * TR5 (more than or equal to 7 points): FNA if more than or equal to 1 cm in maximum dimension, followup ultrasound every year for 5 years if 0.5 to 0.9 cm in maximum dimension. * TR3, TR4 or TR5 nodules that are below the size threshold for followup receive no follow up. Electronically signed by: Jean Paul Toro MD 06/25/2024 01:35 PM [facility]
--- OUTSIDE RECORDS SUMMARY | 2024-06-22 14:04 | XMS_ITS | Encounter Summary ---
Author Organization [email or web address] Address [address] [place] [address] Care Team Providers Care Tow Motor Mechanic Name Role Phone Heidi Romeo NP Primary Care Provider [phone] Reason for Visit * Reason Onset Date Comments Chart Prep 06/03/2024 Encounter Details Date Type Department Care Team (Late st Contact Info) Description 06/03/2024 Telephone [facility] [address], [place] [phone] Kell Hogan MA Chart Prep Social History Tobacco Use Types Packs/Day Years Used Date Smoking Tobacco: Never Passive Smoke Exposure: Never Smokeless Tobacco: Never Alcohol Use Standard Drinks/Week Comments Never 0 (1 standard drink = 0.6 oz pur e alcohol) Housing Stability Answer Date Recorded What is your housing situation today? I have al lemon 05/28/[address] you li ve. Do you have problems with any of the following? None of the above 05/28/2024 Food Insecurity Answer Date Recorded Within the past 12 months, y ou worried that your food would run out before you got money to buy more: Never True 05/28/2024 Within the past 12 months,th e food you bought just didn't last and you didn't have enough money to get more: Never True 07/2024 Transportation Answer Date Recorded In the past 12 months, has l ack of transportation kept you from medical appts, meetings, work or from getting things needed for daily living? No 05/28/2024 Utilities Answer Date Recorded In the past 12 months, has t he electric, gas, oil or water company threatened to shut off services in your home? No 05/28/2024 Internet Access Answer Date Recorded Internet Access Q1 Yes 05/28/2024 Internet Access Q2 Not on file 05/28/2024 Comments No Sex and Gender Information Value Date Recorded Sex Assigned at Female 03/25/2022 10:34 AM EDT Legal Sex Female 10:34 AM EDT Gender Identity Female 03/25/2022 10:34 AM EDT Sexual Orientation Straight 03/25/2022 10 :34 AM EDT documented as of this encounter Miscellaneous Notes * Telephone Encounter - Kell Hogan MA - 06/03/2024 3:29 PM EST Chart Prep Labs: done Images: done Vaccines due: Covid Due, PCV20 Due, Flu Due, and RSV in Pharmacy Due Referrals: Not Applicable Screenings: Colonoscopy , HIV screening, and Hep C Overdue care gaps: Sbirt, PHQ-9, and Oral Health documented in this encounter Plan of Treatment Not on file documented as of this encounter Visit Diagnoses Not on filedocumented in this encounter Care Teams Tow Motor Mechanic Relationship Specialty Start Date End Date Heidi Romeo NP [address] [place] [phone] PCP - General Family Medicine 11/20/23 documented as of this encounter
--- OUTSIDE RECORDS SUMMARY | 2024-06-22 14:04 | XMS_ITS | Encounter Summary ---
Author Organization [employer] Address [address] [facility] [address] [place] [address] Care Team Providers Care Shipping & Receiving Lead Name Role Phone Heidi Romeo STYLE ADVISOR Primary Care Provider [phone] Reason for Visit * Reason Comments Pre-visit Planning SDOH screening negat hailey and tobacco screening negative Encounter Details Date Type Department Care Team ([facility] st Contact Info) Description 05/28/2024 Patient Outreach [facility] [address] [place], [place] [phone] Heidi Romeo NP [address] [place] [address] Pre-visit Planning (SDOH screening negative and tobacco screening negative) Social History Tobacco Use Types Packs/Day Years [...] AM EDT documented as of this encounter Progress Notes * Rebekah Romero - 05/28/2024 3:46 PM EST ARABELLA Welch placed successful outbound call to patient for pre-visit planning. Patient name and confirmed. Patient confirms appt date and time, and has transportation. Biggest concern for appointment at this time is none Patient advised to bring to appointment a photo id and insurance card. Appropriate screenings completed in anticipation of appointment. documented in this encounter Plan of Treatment Not on file documented as of this encounter Visit Diagnoses Not on filedocumented in this encounter Care Teams Shipping & Receiving Lead Relationship Specialty Start Date End Date Heidi Romeo NP [address] [place] [phone] PCP - General Family Medicine 11/20/23 documented as of this encounter
--- OUTSIDE RECORDS SUMMARY | 2024-06-22 14:04 | XMS_ITS | Encounter Summary ---
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) Heidi Romeo NP [address] [place] [address] Phone: tel: fax: [address] Phone: tel: fax: Referral ID Status Reason Start Date Expiration Date Visits Requested Visits Authorized [id number] Authorized Specialty Services Required 06/08/2024 06/08/2025 6 6 * Consultation (Routine) - Authorized Specialty Diagnoses / Procedures Referred By Contadonis t Referred To Contact Physiatry Diagnoses Chronic low back pain, unspecified back pain laterality, unspecified whether sciatica present Heidi Romeo NP [address] [place] [address] Phone: tel: fax: [facility] [address] [facility] [address] [place], [place] Phone: tel: fax: Referral ID Status Reason Start Date Expiration Date Visits Requested Visits Authorized [id number] Authorized Specialty Services Required 06/08/2024 06/08/2025 20 20 Encounter Details Date Type Department Care Team (Late st Contact Info) Description 06/08/2024 1:00 PM EST Telemedicine [facility] [address] [place] [address] Heidi Romeo NP [address] [place] [address] Essential hypertension (Primary Dx); 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 female who presents to the office for a transfer patient visit. 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) Obesity (BMI 30-39.9) Thyroid nodule Chronic low back pain Vitamin D deficiency Past Surgical History: Procedure Laterality Date BREAST LUMPECTOMY Right benign SECTION, LOW TRANSVERSE Family History Problem Relation Name Age of Onset Cataracts Father Social History Living situation: with son Employment/Education: un employed due to back pain for 4-5 years , has had mris for this issue Was seeing an expert, radha Was given injections Mri was cancer was back Hx of leukemia Not cancer problem Diet/exercise: limited due to back pain Substance use: none -alcohol -tobacco -opioids Sexual activity: Contraception: Mental health: No data recorded No data recorded No LMP recorded. Patient is postmenopausal. No Known Allergies Review of Systems Constitutional: Negative for activity change and appetite change. Respiratory: Negative for apnea and chest tightness. Cardiovascular: Negative for chest pain and leg swelling. There were no vitals filed for this visit. 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 Upcoming visit is scheduled Relevant Orders TSH W/Reflex to FT4 TSH W/Reflex to FT4 (Completed) Chronic low back pain Relevant Orders Referral to Physiatry Vitamin D deficiency Relevant Orders Vitamin D, 25-Hydroxy, Total, Immunoassay (Completed) Routine Screening and Health Maintenance Optometry: Yes Dentist: Yes ASCVD risk: 58 y.o. femalehypertension Lab Review: orders written for new lab studies as appropriate; see orders Routine Cancer Screening Breast CA: 04/18 Cervical CA: pap 2023 Colon CA: 2022 Current Outpatient Medications Medication Sig Dispense Refill Acetaminophen 500 MG capsule Take 1 capsule by mouth every 8 (eight) hours. Blood Pressure kit clotrimazole (Lotrimin AF) 1 % cream Apply to affected area twice a day for 1 month 60 g 2 Diclofenac Sodium 1 % gel Apply 2 g topically every 6 (six) hours. lisinopril 30 MG tablet TAKE 1 TABLET BY MOUTH EVERY DAY 90 tablet 0 No current facility-administered medications for this visit. Immunization History Administered Date(s) Administered Hep B, adult 03/18/2018, 04/22/2018, 06/01/2019 Influenza injectable quadrivalent IIV4 with preservative 03/18/2018, 06/01/2019 Moderna Covid-19 Vaccine 12+ 09/06/2020, 10/04/2020 Tdap 04/22/2018 Zoster, Recombinant 01/12/2020, 03/16/2020 Visit Conducted in: [employer] Translation by: [id number] documented in this encounter Miscellaneous Notes * Assessment & Plan Note - Heidi Romeo NP - 06/19/2024 4:16 PM ESTAssociated Problem(s): Essential hypertension Pt reports compliance with medications * Assessment & Plan Note - Heidi Romeo NP - 06/19/2024 4:16 PM ESTAssociated Problem(s): 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) Expected: 06/08/2024 (Approximate), Expires: 06/08/2025 documented as of this encounter Procedures Procedure Name Priority Date/Time Associated Diagnosis Comments VITAMIN D,25-OH,TOTAL,IA Routine 06/15/2024 9:00 AM EST Vitamin D deficiency TSH W/REFLEX TO FT4 Routine 06/15/2024 9 :00 AM EST Thyroid nodule CBC WITH AUTO DIFFERENTIAL Routine 06/15/2024 9:00 AM EST 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) HEMOGLOBIN A1C Routine 06/15/2024 9:00 AM EST Essential hypertension LIPID PANEL, STANDARD Routine 06/15/2024 9:00 AM EST Essential hypertension COMPREHENSIVE METABOLIC PANEL Routine 06/15/2024 9:00 AM EST Essential hypertension documented in this encounter Results * (ABNORMAL) Lipid Panel, Standard (06/15/2024 9:00 AM EST) Triglycerides 88 <150 mg/dL [facility] Comment:Desirable Triglyceri de: less than 150 mg/dLBorderline High Triglyceride 150-199 mg/dLHigh Triglyceride: 200-499 mg/dLVery High Triglyceride: greater than or equal to 5OO mg/dL Cholesterol 161 <200 mg/dL [facility] Comment:Desirable Cholestero l: less than 200 mg/dLBorderline High Cholesterol: 200-239 mg/dLHigh Cholesterol: greater than 239 mg/dL LDL Cholesterol Calculated 110(H) <100 mg/dL [facility] Comment:Desirable LDL: less than 100 mg/dLNear Optimal/Above Optimal LDL: 110- 129 mg/dLBorderline High LDL: 130-159 mg/dLHigh LDL: 160-189 mg/dLVery High LDL: greater than or equal to 190 mg/dL HDL Cholesterol 34(L) >40 mg/dL [facility] Comment:Desirable HDL: great er than 40 mg/dL Note: This HDL assay may give artificially low results in patients with liver disease. Blood Venous blood specimen / Unknown 06/15/2024 9:00 AM EST 06/15/2024 11:17 AM EST us Heidi Romeo CLINICAL TEAM LEAD LAB BLOOD ORDERABLES Final Resul t Performing Organization Address City/[facility] Co de Phone Number [facility] [address] [place] [phone] * TSH W/Reflex to FT4 (06/15/2024 9:00 AM EST) TSH reflex Free T4 0.94 0.32 - 4.0 uIU/mL [facility] Blood Venous blood specimen / Unknown 06/15/2024 9:00 AM EST 06/15/2024 11:17 AM EST Heidi Romeo NP LAB BLOOD ORDERABLES Final Resul t Performing Organization Address City/[facility]/ZIP Co de Phone Number [facility] [address] [place] [phone] * Vitamin D, 25-Hydroxy, Total, Immunoassay (06/15/2024 9:00 AM EST) Vitamin D 25-OH Total 54.6 >30 ng/mL [facility] Comment:Health Based Referen ce Values*< 20 ng/mL Sxtkvfspy09-82 ng/mL Insufficient> 30 ng/mL Sufficient*Lisa GOMEZ. N Engl J Med. 2007;357:266-280Care must be taken in interpreting Vitamin D results fromdifferent laboratories and methodologies. Published datademonstrated that results from patients undergoinghemodialysis may show a negative bias when tested withvarious automated 25-OH vitamin D assays when compared toLC-MS/MS.When testing samples from patients whose predominant form ofVitamin D is Vitamin D2, such as patients receiving VitaminD2 supplementation, results that are subtherapeutic shouldbe confirmed with another method such as LC-MS/MS. Blood Venous blood specimen / Unknown 06/15/2024 9:00 AM EST 06/15/2024 11:17 AM EST Heidi Romeo NP LAB BLOOD ORDERABLES Final Resul t [facility] [address] [place] [phone] * Hemoglobin A1c (06/15/2024 9:00 AM EST) Hemoglobin A1c 4.6 <6.0 % [facility] Comment:Hemoglobin A1C Refer ence Range Adults: 4.8 - 6.0 % Non diabetic: < 6.0 % Goal: < 7.0 %Additional Action Suggested: > 8.0 %Note: Hemoglobin A1c results are invalid for patients with abnormal amounts of HbF. Blood transfusions may impact the HbA1c concentration in the patient sample. Estimated Average Glucose 85 mg/dL [facility] Comment:eAG = Estimated ave rage glucose which is %A1C expressed asaverage glucose, using the formula of the D2B-KtknijmObmyjzc Glucose study (ADAG), Diabetes Care, Vol.31,#8,Dec. 2007 Blood Venous blood specimen / Unknown 06/15/2024 9:00 AM EST 06/15/2024 11:17 AM EST Heidi Romeo NP LAB BLOOD ORDERABLES Final Resul t [facility] [address] [place], [place] [phone] * (ABNORMAL) CBC auto differential (06/15/2024 9:00 AM EST) White Blood Count 7.5 4.8 - 10.8 X10*3/uL [facility] Red Blood Count 4.64 4.20 - 5.50 X10*6/uL [facility] Hemoglobin 13.6 12.0 - 16.0 g/dl [facility] Hematocrit 40.4 37.0 - 47.0 % [facility] Mean Corpuscular Volume 87.1 80.0 - 98.0 fL [facility] Mean Corpuscular Hemoglobin 29.3 27.0 - 33.0 pg [facility] Mean Corpuscular HGB Conc 33.7 31.0 - 35.0 g/dl [facility] Red Cell Distribution Width 12.1 11.0 - 16.0 % [facility] Platelet Count 255 160 - 400 X10*3/uL [facility] Mean Platelet Volume 10.5 9.4 - 12.3 fL [facility] Neutrophils Percent Auto 74.4(H) 45 - 73 % [facility] Imm Gran Pct Auto 0.4 0.0 - 0.4 % [facility] Lymphocytes Percent Auto 18.5(L) 20 - 40 % [facility] Monocytes Percent Auto 5.6 2 - 11 % [facility] Eosinophils Percent Auto 0.8 0 - 4 % [facility] Basophils Percent Auto 0.3 0 - 2 % [facility] NRBC Pct Auto 0.0 0.0 - 0.2 /100WBC [facility] Neutrophils Absolute Auto 5.6 2.0 - 8.3 x10*3/uL [facility] Imm Gran Abs Auto 0.03 0.00 - 0.03 X10*3/uL [facility] Lymphocytes Absolute Auto 1.4 1.2 - 4.9 X10*3/uL [facility] Monocytes Absolute Auto 0.4 0.1 - 1.2 X10*3/uL [facility] Eosinophils Absolute Auto 0.1 0.0 - 0.4 X10*3/uL [facility] Basophils Absolute Auto 0.0 0.0 - 0.2 X10*3/uL [facility] NRBC Abs Auto 0.000 0.0 - 0.012 X10*3/uL [facility] Blood Venous blood specimen / Unknown 06/15/2024 9:00 AM EST 06/15/2024 11:17 AM EST us Heidi Romeo CLINICAL TEAM LEAD LAB BLOOD ORDERABLES Final Resul t [facility] [address] [place] [phone] * (ABNORMAL) Comprehensive Metabolic Panel (06/15/2024 9:00 AM EST) Sodium 140 135 - 145 mmol/L [facility] Potassium 3.5 3.3 - 5.1 mmol/L [facility] Chloride 106 96 - 108 mmol/L [facility] Carbon Dioxide 29 22 - 29 mmol/L [facility] Anion Gap 9(L) 12 - 20 [facility] Urea Nitrogen (BUN) 13 9 - 16 mg/dL [facility] Creatinine, Serum 0.69 0.5 - 1.4 mg/dL [facility] Estimated Glomerular Filt Rate >60 [facility] Comment:Chronic Kidney Disea se: Estimated GFR < 60 mL/min/[id number] Kidney Disease: Estimated GFR < 15 mL/min/1.73m2 Glucose 93 60 - 115 mg/dL [facility] Calcium 8.6 8.4 - 10.2 mg/dL [facility] Bilirubin, Total 0.9 0.0 - 1.0 mg/dL [facility] Aspartate Amino Transferase 20 5 - 31 U/L [facility] Alanine Aminotransferase 19 0 - 31 U/L [facility] Total Protein 7.3 6.5 - 8.0 g/dL [facility] Albumin Level 4.1 3.5 - 5.0 g/dL [facility] Alkaline Phosphatase 74 39 - 117 U/L [facility] Blood Venous blood specimen / Unknown 06/15/2024 9:00 AM EST 06/15/2024 11:17 AM EST us Heidi Romeo NP LAB BLOOD ORDERABLES Final Resul t [facility] [address] [place] [phone] documented in this encounter Visit Diagnoses Diagnosis Essential hypertension- Primary Unspecified essential hypertension 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
--- OUTSIDE RECORDS SUMMARY | 2024-06-22 14:04 | XMS_ITS | Clinical Summary ---
Author Organization [employer] Address [address] [facility] [address] [place] [address] Care Team Providers Care Data Transcriber Name Role Phone Heidi Romeo NP Primary Care Provider [phone] Allergies No known active allergies Medications Acetaminophen 500 MG capsule Take 1 capsule by mouth every 8 (eight) hours. 08/10/19 Active Diclofenac Sodium 1 % gel Apply 2 g topically every 6 (six) hours. 08/10/19 Active Blood Pressure kit Active clotrimazole (Lotrimin AF) 1 % cream Apply to affected area twice a day for 1 month 60 g 2 03/22/20 24 Active lisinopril 30 MG tablet TAKE 1 TABLET BY MOUTH EVERY DAY 90 tablet 06/11/19 25 Active lisinopril 30 MG tablet TOME 1 TABLETA POR VIA ORAL TODOS [place] 90 tablet 03/16/20 24 025 Discontinued Active Problems Problem Noted Date Diagnosed Date Chronic low back pain 06/08/2024 Vitamin D deficiency 06/08/2024 Gluteal tendinitis 04/22/2022 Hypertensive retinopathy 02/20/2020 Non-toxic multinodular goiter 09/17/2019 Breast lump 01/02/2018 Essential hypertension 01/02/2018 Assessment & Plan (06/19/2024 4:16 PM EST): Pt reports compliance with medications 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 Upcoming visit is scheduled Encounters Date Type Department Care Team Description 06/11/2024 Refill [facility] [address] [place] [address] Heidi Romeo NP 06/08/2024 1:00 PM EST Telemedicine [address] [address] Heidi Romeo NP Essential hypertension (Primary Dx); 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); Chronic low back pain, unspecified back pain laterality, unspecified whether sciatica present; Thyroid nodule; Vitamin D deficiency 06/03/[address] [address] Kell Hogan MA Chart Prep 05/28/2024 Patient Outreach [address] [address] Heidi Romeo NP Pre-visit Planning (SDOH screening negative and tobacco screening negative) 04/07/[address] [address] Jael Paredes MA may recall 04/07/2024 Travel 03/29/2024 Orders Only [facility] [address] [place] [address] Heidi Romeo NP 03/22/2024 2:00 PM EDT Office Visit [address] [address] Yu Cortez CNM Visit for pelvic exam (Primary Dx); Breast cancer screening by mammogram; Eliceo sarmiento 03/22/2024 Travel from Last 3 Months Immunizations Name Administration Dates Next Due Hep B, adult 06/01/2019,04/22/2018,03/18/2018 Influenza injectable quadriv alent IIV4 with preservative 06/01/2019,03/18/2018 Moderna Covid-19 Vaccine 12+ 10/04/2020,09/07/19 21 Tdap 04/22/2018 Zoster, Recombinant 03/16/2020,01/12/2020 Family History Medical History Relation Name Comments Cataracts Father Relation Name Status Comments Father Social History Tobacco Use Types Packs/Day Years Used Date Smoking Tobacco: Never Passive Smoke Exposure: Never Smokeless Tobacco: Never Tobacco Cessation:Counseling Given: Not Answered Alcohol Use Standard Drinks/Week Comments Never 0 [...] Orientation Straight 03/25/2022 10 :34 AM EDT Last Filed Vital Signs Vital Sign Reading Time Taken Comments Blood Pressure 167/95 03/22/2024 2:32 PM EDT Pulse 93 03/22/2024 2:32 PM EDT Temperature 36.4 ??C (97.5 ??F) 03/22/2024 2:32 PM ED T Respiratory Rate 20 03/22/2024 2:32 PM EDT Oxygen Saturation 98% 03/22/2024 2:32 PM EDT Inhaled Oxygen Concentration - - Weight 75 kg (165 lb 6.4 oz) 03/22/2024 2:32 PM EDT Height 149.9 cm (4' 11 ) 03/22/2024 2:32 PM EDT Body Mass Index 33.41 03/22/2024 2:32 PM EDT Plan of Treatment Health Maintenance Due Date Last Done Comments CT Colonography 1965 Colonoscopy 1965 Colorectal Cancer Screening 1965 Depression Screening 1965 FIT DNA/Cologuard 1965 FIT 1965 FOBT 1965 HIV Screening 1965 Sigmoidoscopy 1965 Pneumococcal Vaccine: Pediatrics (0 to 5 Years) and At-Risk Patients (6 to 64 Years) (1 of 2 - PCV) 10/25/1969 Alcohol/Substance Use Screening 1975 Hepatitis C Screening 10/25/1981 COVID-19 Vaccine (3 - Modern a risk series) 11/01/2020 10/04/2020, 09/06/2020 RSV Patients and Patients Aged 60 years or older (1 - Risk 60-74 years 1-dose series) 2023 Influenza Vaccine (#1) 2024 , 03/18/2018 SDOH Screening 05/28/2025 05/28/2024 Tobacco Screening 06/08/2025 06/08/2024 Mammogram 03/29/2026 03/29/2024, 03/20/2022, 05/14/2018 Cervical Cancer Screening 03/17/2028 HPV/Cotest 03/17/2028 03/17/2023, 03/18/2018 Pap Smear 03/17/2028 03/17/2023 DTaP/Tdap/Td Vaccines (2 - T d or Tdap) 04/22/2028 04/22/2018 Lipid Panel 06/15/2029 06/15/2024, 12/29/2021, 05/09/2020 Hepatitis B Vaccines Completed 06/01/2019, 04/22/2018, 03/18/2018 Zoster Vaccines Completed 03/16/2020, 01/12/2020 HIB Vaccines Aged Out No longer eligi ble based on patient's age to complete this topic HPV Vaccines Aged Out No longer eligi ble based on patient's age to complete this topic Hepatitis A Vaccines Aged Out No long er eligible based on patient's age to complete this topic IPV Vaccines Aged Out No longer eligi ble based on patient's age to complete this topic Meningococcal Vaccine Aged Out No alba nicola eligible based on patient's age to complete this topic RSV under 20 months Aged Out No longe r eligible based on patient's age to complete this topic Rotavirus Vaccines Aged Out No longer eligible based on patient's age to complete this topic Procedures Procedure Name Priority Date/Time Associated Diagnosis Comments LIPID PANEL, STANDARD Routine 06/15/2024 9:00 AM EST Essential hypertension TSH W/REFLEX TO FT4 Routine 06/15/2024 9 :00 AM EST Thyroid nodule VITAMIN D,25-OH,TOTAL,IA Routine 06/15/2024 9:00 AM EST Vitamin D deficiency HEMOGLOBIN A1C Routine 06/15/2024 9:00 AM EST Essential hypertension CBC WITH AUTO DIFFERENTIAL Routine 06/15/2024 9:00 AM EST 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) COMPREHENSIVE METABOLIC PANEL Routine 06/15/2024 9:00 AM EST Essential hypertension BI MAMMOGRAM SCREENING TOMOSYNTHESIS BILATERAL Routine 03/29/2024 3:45 PM EST HPV MRNA E6/E7 REFLEX TO HPV 16, 18/45 Routine 03/17/2023 2:14 PM EDT PAP SMEAR Routine 03/17/2023 2:14 PM EDT from Last 3 Months or Most Recently Relevant to Health Maintenance Results * Vitamin D, 25-Hydroxy, Total, Immunoassay (06/15/2024 9:00 AM EST) Vitamin D 25-OH Total 54.6 >30 ng/mL [facility] Comment:Health Based Referen ce Values*< 20 ng/mL Ppccfcrdf82-97 ng/mL Insufficient> 30 ng/mL Sufficient*Lisa GOMEZ. N [...] 06/15/2024 11:17 AM EST us Heidi Romeo LOADMASTER LAB BLOOD ORDERABLES Final Resul t Performing Organization Address [facility] Co de Phone Number [facility] [address] [place] [phone] * TSH W/Reflex to FT4 (06/15/2024 9:00 AM EST) TSH reflex Free T4 0.94 0.32 - 4.0 uIU/mL [facility] Blood Venous blood specimen / Unknown 06/15/2024 9:00 AM EST 06/15/2024 11:17 AM EST us Heidi Romeo NP LAB BLOOD ORDERABLES Final Resul t Performing Organization Address [facility] Co de Phone Number [facility] [address] [place] [phone] * (ABNORMAL) CBC auto differential (06/15/2024 9:00 AM EST) White Blood Count 7.5 4.8 - 10.8 X10*3/uL [facility] Red Blood Count 4.64 4.20 - 5.50 X10*6/uL [facility] Hemoglobin 13.6 12.0 - 16.0 g/dl [facility] Hematocrit 40.4 37.0 - 47.0 % [facility] Mean Corpuscular Volume 87.1 80.0 - 98.0 fL [facility] Mean Corpuscular Hemoglobin 29.3 27.0 - 33.0 pg [facility] Mean Corpuscular HGB Conc 33.7 31.0 - 35.0 g/dl [facility] Red Cell Distribution Width 12.1 11.0 - 16.0 % [facility] Platelet Count 255 160 - 400 X10*3/uL [facility] Mean Platelet Volume 10.5 9.4 - 12.3 fL [facility] Neutrophils Percent Auto 74.4(H) 45 - 73 % [facility] Imm Gran Pct Auto 0.4 0.0 - 0.4 % [facility] Lymphocytes Percent Auto 18.5(L) 20 - 40 % [facility] Monocytes Percent Auto 5.6 2 - 11 % [facility] Eosinophils Percent Auto 0.8 0 - 4 % [facility] Basophils Percent Auto 0.3 0 - 2 % [facility] NRBC Pct Auto 0.0 0.0 - 0.2 /100WBC [facility] Neutrophils Absolute Auto 5.6 2.0 - 8.3 x10*3/uL [facility] Imm Gran Abs Auto 0.03 0.00 - 0.03 X10*3/uL [facility] Lymphocytes Absolute Auto 1.4 1.2 - 4.9 X10*3/uL [facility] Monocytes Absolute Auto 0.4 0.1 - 1.2 X10*3/uL [facility] Eosinophils Absolute Auto 0.1 0.0 - 0.4 X10*3/uL [facility] Basophils Absolute Auto 0.0 0.0 - 0.2 X10*3/uL [facility] NRBC Abs Auto 0.000 0.0 - 0.012 X10*3/uL [facility] Blood Venous blood specimen / Unknown 06/15/2024 9:00 AM EST 06/15/2024 11:17 AM EST Heidi Romeo NP LAB BLOOD ORDERABLES Final Resul t Performing Organization Address City/State/[facility] Co de Phone Number [facility] [address] [place] [phone] * Hemoglobin A1c (06/15/2024 9:00 AM EST) Hemoglobin A1c 4.6 <6.0 % [facility] Comment:Hemoglobin A1C Refer ence Range Adults: 4.8 - 6.0 % Non diabetic: < 6.0 % Goal: < 7.0 %Additional Action Suggested: > 8.0 %Note: Hemoglobin A1c results are invalid for patients with abnormal amounts of HbF. Blood transfusions may impact the HbA1c concentration in the patient sample. Estimated Average Glucose 85 mg/dL [facility] Comment:eAG = Estimated ave rage glucose which is %A1C expressed asaverage glucose, using the formula of the Z6M-LklnytsHmavvxp Glucose study (ADAG), Diabetes Care, Vol.31,#8,Dec. 2007 Blood Venous blood specimen / Unknown 06/15/2024 9:00 AM EST 06/15/2024 11:17 AM EST us Heidi Romeo NP LAB BLOOD ORDERABLES Final Resul t Performing Organization Address [facility] de Phone Number [facility] [address] [place] [phone] * (ABNORMAL) Lipid Panel, Standard (06/15/2024 9:00 AM EST) Triglycerides 88 <150 mg/dL [facility] Comment:Desirable Triglyceri de: less than 150 mg/dLBorderline High Triglyceride 150-199 mg/dLHigh Triglyceride: 200-499 mg/dLVery High Triglyceride: greater than or equal to 5OO mg/dL Cholesterol 161 <200 mg/dL [facility] Comment:Desirable Cholestero l: less than 200 mg/dLBorderline High Cholesterol: 200-239 mg/dLHigh Cholesterol: greater than 239 mg/dL LDL Cholesterol Calculated 110(H) <100 mg/dL [facility] Comment:Desirable LDL: less than 100 mg/dLNear Optimal/Above Optimal LDL: 110- 129 mg/dLBorderline High LDL: 130-159 mg/dLHigh LDL: 160-189 mg/dLVery High LDL: greater than or equal to 190 mg/dL HDL Cholesterol 34(L) >40 mg/dL [facility] Comment:Desirable HDL: great er than 40 mg/dL Note: This HDL assay may give artificially low results in patients with liver disease. Blood Venous blood specimen / Unknown 06/15/2024 9:00 AM EST 06/15/2024 11:17 AM EST us Heidi Romeo NP LAB BLOOD ORDERABLES Final Resul t [facility] [address] [place] [phone] [phone] * (ABNORMAL) Comprehensive Metabolic Panel (06/15/2024 9:00 AM EST) Sodium 140 135 - 145 mmol/L [facility] Potassium 3.5 3.3 - 5.1 mmol/L [facility] Chloride 106 96 - 108 mmol/L [facility] Carbon Dioxide 29 22 - 29 mmol/L [facility] Anion Gap 9(L) 12 - 20 [facility] Urea Nitrogen (BUN) 13 9 - 16 mg/dL [facility] Creatinine, Serum 0.69 0.5 - 1.4 mg/dL [facility] Estimated Glomerular Filt Rate >60 [facility] Comment:Chronic Kidney Disea se: Estimated GFR < 60 mL/min/1.69a6Twkyqu Kidney Disease: Estimated GFR < 15 mL/min/1.73m2 Glucose 93 60 - 115 mg/dL [facility] Calcium 8.6 8.4 - 10.2 mg/dL [facility] Bilirubin, Total 0.9 0.0 - 1.0 mg/dL [facility] Aspartate Amino Transferase 20 5 - 31 U/L [facility] Alanine Aminotransferase 19 0 - 31 U/L [facility] Total Protein 7.3 6.5 - 8.0 g/dL [facility] Albumin Level 4.1 3.5 - 5.0 g/dL [facility] Alkaline Phosphatase 74 39 - 117 U/L [facility] Blood Venous blood specimen / Unknown 06/15/2024 9:00 AM EST 06/15/2024 11:17 AM EST us Heidi Romeo LOADMASTER LAB BLOOD ORDERABLES Final Resul t [facility] [address] [place] [address] [phone] * BI Mammogram Screening Tomosynthesis Bilateral (03/29/2024 3:45 PM EST) Anatomical Region Laterality Modality Breast Bilateral Mammography 03/29/2024 3:45 PM EST Narrative 04/07/2024 12:23 PM EST ? [facility] [place] ? [address] ?[place] [address] ? Mammography Report ? Signed ? Patient: Angel John,Mae ?MR# ?? : [id number] ? : 1965 ?Acct:[id number] ? Age/Sex: 58 / F ?ADM Date: 03/29/24 ? Loc: HO.MAMMO ? Attending Dr: Heidi B Graef LOADMASTER ? Ordering Physician: Graef,Heidi B LOADMASTER ?Results: 1Negati ?? ve ? Date of Service: 03/29/24 ?Follow Up: 1 Year From Orig ?? inal Mammogram ? Procedure(s): MM tomosynthesis screening BI ?? Accession Number(s): [id number] ? cc: Heidi Romeo LOADMASTER ? EXAMINATION: ?? MM SCREENING DIGITAL BREAST TOMOSYNTHESIS, BILATERAL ? CLINICAL INFORMATION: ? Screening. Asymptomatic. ? COMPARISON: ?? Mammography: Comparison is made with available priors ? TECHNIQUE: ?? Digital breast mammography with tomosynthesis is performed in both the ?? craniocaudal and mediolateral oblique views along with computer-aided ?? detection (CAD). ? FINDINGS: ?? The breasts are heterogeneously dense, which may obscure small masses ?? (ACR BI-RADS breast composition Category c). ? There are no significant masses, abnormal calcifications, or other ?? abnormalities. ? MM/MM tomosynthesis screening BI ?? IMPRESSION: ?? No mammographic evidence of malignancy. ? ASSESSMENT: ? BI-RADS BI-RADS 1 - Negative ? RECOMMENDATION: ?? Routine annual mammography screening. ? 1 year F/U ? This examination should not preclude the clinical evaluation of a ?? suspicious palpable abnormality. ? This patient's information was entered into a reminder system with a ?? target due date for their next mammogram. ? Electronically signed by: ??Katrina Galloway DO ??04/07/2024 12:20 PM EST ?? RP ? Dictated By: ?Katrina Galloway DO ? Signed By: ?<Electronically signed by Katrina Galloway, DO in OV> ? 04/07/24 1220 ? DD/ 1545 ? TD/TT: 03/29/24 1610 ? Reach Truck Operator: ? Procedure Note Rich, Emely - 04/07/2024 [facility] [address] [place] [address] [place] [address] Mammography Report Signed Patient: Angel JohnJami DMR# : [id number] : 1965Acct:[id number] Age/Sex: 58 / FADM Date: 03/29/24 Loc: HO.MAMMO Attending Dr: Heidi Romeo LOADMASTER Ordering Physician: Heidi Romeo NPResults: 1Negati ve Date of Service: 03/29/24Follow Up: 1 Year From Orig inal Mammogram Procedure(s): MM tomosynthesis screening BI Accession Number(s): [id number] cc: Heidi Romeo LOADMASTER EXAMINATION: MM SCREENING DIGITAL BREAST TOMOSYNTHESIS, BILATERAL CLINICAL INFORMATION: Screening. Asymptomatic. COMPARISON: Mammography: Comparison is made with available priors TECHNIQUE: Digital breast mammography with tomosynthesis is performed in both the craniocaudal and mediolateral oblique views along with computer-aided detection (CAD). FINDINGS: The breasts are heterogeneously dense, which may obscure small masses (ACR BI-RADS breast composition Category c). There are no significant masses, abnormal calcifications, or other abnormalities. MM/MM tomosynthesis screening BI IMPRESSION: No mammographic evidence of malignancy. ASSESSMENT: BI-RADS BI-RADS 1 - Negative RECOMMENDATION: Routine annual mammography screening. 1 year F/U This examination should not preclude the clinical evaluation of a suspicious palpable abnormality. This patient's information was entered into a reminder system with a target due date for their next mammogram. Electronically signed by: Katrina Galloway DO 04/07/2024 12:20 PM [facility] Dictated By: Katrina Galloway DO Signed By: <Electronically signed by Katrina Galloway DO in OV> 04/07/24 1220 DD/ 1545 TD/TT: 03/29/24 1610 Reach Truck Operator: Heidi Romeo NP IMG BI PROCEDURES Final Result * HPV mRNA E6/E7 w/Reflex to HPV Genotypes 16, 18/45 (03/17/2023 2:14 PM EDT) HPV nRNA E6/E7 Not Detected Not Detected [facility] Comment:Methodology: Transcr iption-Mediated AmplificationThis assay detects E6/E7 viral messenger RNA (mRNA) from 14high-risk HPV types (16,18,31,33,35,39,45,51,52,56,58,59,66,68).Cervical sources are required for HPV testing.If a vaginal source from a patient who has had atotal hysterectomy with removal of cervix wassubmitted, please contact the testing laboratoryfor alternative testing options.For additional information, please refer tohttp://education.ProMed/faq/VFZ823m8(This link if provided for information/educational purposes only.)THIS TEST WAS PERFORMED AT:[facility] [place] [phone] LUCIA MD HPV mRNA E6/E7 [facility] HPV 16 RNA [facility] HPV 18/45 RNA [facility] 03/17/2023 2:14 PM EDT 03/18/2023 7:00 AM EDT Yu Cortez CNM LAB CYTOLOGY ORDERABLES F inal Result Performing Organization Address City/State/[facility] Co de Phone Number [facility] [address] [place] [phone] * Pap Smear (03/17/2023 2:14 PM EDT) 03/17/2023 2:14 PM EDT 03/18/2023 7:00 AM EDT Narrative [facility] - 03/20/2023 9:41 AM EDT ----- ------- Name: Jami Burns ? Age/Sex: 57/F ? : 1965 Unit#: [id number] ?? Attend Dr: YU CORTEZ CNM ?Re03/17/23 ?Status: DEP REF ? Location: [facility] ? Disch: ? ----- ------- SPEC : [id number] ?RECD: 03/18/23 ? STATUS: ??SOUT ? REQ NUM: [id number] ? LELAND: 03/17/230942 ? SUBM DR: YU CORTEZ CNM ? ENTERED: ??03/18/2349 ?SP TYPE: Pap Smr ?OTHR DR: ? ORDERED: ??Pap Smear ? Interpretation ?? Satisfactory for evaluation. ?? Negative for intraepithelial lesion or malignancy. ?HPV mRNA E6/E7: ?NOT DETECTED ? This assay detects E6/E7 viral messenger RNA (mRNA) from 14 high-risk HPV types (16, 18, ?? 31, 33, 35, 39, 45, 51, 52, 56, 58, 59, 66, 68) ?? HPV testing performed by [facility], [place], [place]. ??See reference laboratory ?? pion of the EMR for entire report. ?Clinical Information LMP: Postmenopausal Previous PAP test: 2018, WNL ? Material Received ?? ThinPrep-Cervical ----- ------- Signed (signature on file) BRICE Bryson (ASCP) 03/20/23 0941 ? ----- ------- ? END OF REPORT ? us Yu Cortez [facility] CYTOLOGY ORDERABLES F inal Result [facility] [address] [place], [place] [phone] from Last 3 Months or Most Recently Relevant to Health Maintenance Insurance [place] [id number] [facility] C3 HSN FULL Care Teams Data Transcriber Relationship Specialty Start Date End Date Heidi Romeo NP [address] [place] [phone] PCP - General Family Medicine 11/20/23
--- OUTSIDE RECORDS SUMMARY | 2024-06-22 14:04 | XMS_ITS | Encounter Summary ---
Author Organization [employer] Address [address] [place] [address] Care Team Providers Care Children'S Entertainer Name Role Phone Heidi Romeo NP Primary Care Provider [phone] Reason for Visit * Reason Comments Med Refill Encounter Details Date Type Department Care Team ([facility] st Contact Info) Description 06/11/[address] [facility] [address] [place], [place] [phone] Heidi Romeo NP [address] [place], [place] [phone] Social History Tobacco Use Types Packs/Day Years [...] the past 12 months, has t he [employer], oil or water company threatened to shut [...] AM EDT documented as of this encounter Plan of Treatment Not on file documented as of this encounter Visit Diagnoses Not on filedocumented in this encounter Care Teams Children'S Entertainer Relationship Specialty Start Date End Date Heidi Romeo NP [address] [place] [phone] PCP - General Family Medicine 11/20/23 documented as of this encounter
== END 2024-06-22 13:08 | disposition home or self-care (01) ==
LOC: HO.US 13:07
PROVIDERS: PCP Nurse Practitioner Family; Visit Provider Nurse Practitioner Family
DX: E04.1 Nontoxic single thyroid nodule (principal)
CPT/HCPCS: 76536

== ENCOUNTER → 2024-06-22 13:10 | Outpatient (BNV) | payer MEDICAID, SELFPAY | PROVIDERS: PCP Nurse Practitioner Family; Visit Provider Radiology Diagnostic Radiology | DX: E04.2 Nontoxic multinodular goiter (principal) | CPT/HCPCS: 76536 ==

== ENCOUNTER → 2024-07-27 14:06 | Outpatient (BNV) | payer MEDICAID, SELFPAY | PROVIDERS: PCP Nurse Practitioner Family; Visit Provider Internal Medicine | DX: Z85.6 Personal history of leukemia (principal) | CPT/HCPCS: 99203 ==

== ENCOUNTER 2024-09-07 13:02 | Outpatient (AMB) | payer MEDICAID, SELFPAY ==
[2024-09-07 13:21] VITALS: BP 160/74; PULSE 107; O2SAT 97; BMI 33.5
--- NOTE | 2024-09-07 13:21 | MHC.OFFVIS ---
Vital Signs 09/07/24 13:21 Height 4 ft 11 in Weight 166 lb BMI 33.5 BP 160/74 H Blood Pressure Location Lt brachial Position Sitting Pulse 107 H Pulse Oximetry (%) 97 Oxygen Delivery Method Room Air Intake Visit Reasons: colonoscopy recall/ [facility] pt cee was 01/03/22 Intake Note: Patient complex for colon polyps/Colonoscopy recall/ [facility] pt cee was 01/03/22, last Colonoscopy was 12/14/[address] Solano with a 3 yrs recall. Patient denies any GI issues. Photovoltaic Solar Cell Designer Required: Yes Photovoltaic Solar Cell Designer Name: Dorinda Vega Accompanied by: Self / Same As Patient Allergies No Known Allergies Allergy (Verified 09/07/24 20:39) HPI HPI colonoscopy recall/ [facility] pt cee was 01/03/22: Details: Patient is a 58-year-old female with PMH of obesity, vitamin-D deficiency and hypertension. Last visit with COLE Cook 01/03/2022 for follow-up after colonoscopy Photovoltaic Solar Cell Designer Rebekah Black [id number] Pt is here today for polyp surveillance colonoscopy pre-screening . She denies any GI symptoms/concerns. Reports daily BMs without constipation or loose stools. Patient denies: systemic symptoms, n/v, pyrosis, appetite changes, regurgitation, unintentional wt loss, dysphasia, cardiopulmonary symptoms, bladder changes or melena/hematochezia. Reports taking antihypertensive as prescribed. She is asymptomatic. 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 Family hx: Father, lung CA-passed age 68 PFSH Medical History Vitamin D deficiency Chronic constipation Non-toxic multinodular goiter Gluteal tendinitis of both buttocks Goiter diffuse, nontoxic Retinopathy Obesity Breast mass, right ALL (acute lymphocytic leukemia) Essential hypertension Thyroid nodule Surgical History Hx of colonoscopy S/P fine needle aspiration Hx of section Family History Father Lung cancer Mother Hypertension Social History Household Members: Children Household Members Other:: son and daughter in law Alcohol intake: never Patient Tobacco Use Status: Never used Tobacco Smoked in Last 30 Days: No Use of substances other than those prescribed or required for medical reasons: No Advance Directives: No Advance Directives Information Provided: No Do you have a plan to hurt others: No Plan Patient : No service: No Current occupational status: unemployed Gender identity: Female Review of Systems Const Reports as per HPI ENT Reports as per HPI Card Reports as per HPI Resp Reports as per HPI GI Reports as per HPI Reports as per HPI Physical Exam Vital Signs: Last Vital Signs Pulse 107 H 09/07/24 13:21 BP 160/74 H 09/07/24 13:21 Pulse Ox 97 09/07/24 13:21 Oxygen Delivery Method Room Air 09/07/24 13:21 BMI result Body Mass Index 33.5 Const General: healthy appearing, no acute distress and well developed Nutritional Appearance: well nourished Orientation/consciousness: patient oriented x3 HEENT Head: Yes normal to inspection, Yes normocephalic and Yes atraumatic Face and sinus: Yes normal facial exam Eyes General: appearance normal, both eyes and all related structures Neck Neck: Yes normal visual inspection Resp Effort & Inspection: normal respiratory effort, able to speak in complete sentences, no tracheal deviation and symmetric chest movement Auscultation: clear to auscultation bilaterally Cardio Jugular venous distension: no JVD Rate: regular rate Rhythm: regular rhythm Heart sounds: S1 normal heart sound present, S2 normal heart sound present, no gallops and no murmurs Neuro General: patient oriented x3 Gait exam (Neuro): Normal gait present Psych Appearance: grossly normal Mental Status: mental status grossly normal Speech and movement: Normal speech and movement present Affect: normal affect Attitude: cooperative Thought process: Normal thought process present Thought content: Normal thought content present Insight: Good insight present (Psych) Judgement: Good judgement present (Psych) Results Reviewed Results Reviewed: Procedure: 12/17/2021 COLONOSCOPY TILL CECUM WITH BIOPSIES AND SNARE POLYPECTOMY Procedure: The patient was placed in the left lateral decubitis position and pre-procedure medications were administered. After a digital rectal examination of the ano-rectum, the video colonoscope was inserted into the rectum and advanced through the colon to the cecum. The colonoscope was slowly withdrawn in a retrograde panoramic fashion and the colon mucosa was carefully examined including a retroflexed view of the rectum. Findings and interventions are described below. Procedure Difficulty: Without difficulty Findings: Terminal Ileum: Not evaluated Cecum:? Normal Ascending Colon:? Normal Transverse Colon:? A 7-8 mm sessile polyp removed with a cold snare. Residual polyp removed with a cold bx Descending Colon: ? Moderate diverticulosis Sigmoid Colon:? Moderate diverticulosis Rectum:? Normal Ano-rectum:? Small internal hemorrhoids Colon preparation:? Good after some irrigation. There was a thin layer of adherent stool in the right colon and excessive spasm was noted in the colon requiring repeated passage of the scope Impression and Post Procedure Diagnosis: Colonoscopy Findings: One small polyp removed Moderate diverticulosis seen in the left colon Small hemorrhoids on retroflexed exam. Plan: Await pathology results Repeat Colonoscopy interval based on path results - in 3 years if polyps are adenomatous and due to a hx of multiple colon polyps on previous colonoscopy. Pathology Diagnosis Colon, transverse, polypectomy: Tubular adenoma; negative for high-grade dysplasia or carcinoma. Assessment & Plan Assessment & Plan (1) Colon polyps: Comment: Colon, transverse, polypectomy: Tubular adenoma Code(s): K63.5 - Polyp of colon Category: Medical Qualifiers: Colon location: transverse Colon polyp type: adenomatous Qualified Code(s): D12.3 - Benign neoplasm of transverse colon Plan: Last colonoscopy November 2021 with tubular adenomas to the transverse colon. She is due for polyp surveillance colonoscopy. Reviewed prep and procedure expectations. Prep Rx'd to preferred pharmacy. (2) Hypertension: Code(s): I10 - Essential (primary) hypertension Category: Medical Qualifiers: Hypertension type: unspecified Qualified Code(s): I10 - Essential (primary) hypertension Plan: BP remains elevated at recheck. Reassured patient is asymptomatic. Elevation should not delay colonoscopy. Did instruct she could take her antihypertensive morning of procedure with a very small amount of water prior to the 4 hour nothing by mouth window. Encouraged to continue medication as prescribed and follow-up with PCP. Plan Asymptomatic. As above Time: I spent a total of 45 minutes minutes on the date of encounter which includes: Preparing to see the patient (reviewed previous documentation, test results and medical history) Performing a medically appropriate exam and/or evaluation Ordering medications, tests, and procedures Documenting clinical information in the health record Medications: New bisacodyl per colonoscopy instructions 5 mg PO ONCE 1 day 3 tabs 0RF polyethylene glycol 3350 (Miralax) per colonoscopy prep instructions 238 grams PO ONCE 238 grams 0RF Coding Level of Care Code Established Pt Est Pt Level 3 (22092) Patient Type Established Diagnoses Adenomatous polyp of transverse colon D12.3 Colon location: transverse Colon polyp type: adenomatous Hypertension, unspecified type I10 Hypertension type: unspecified
--- OUTSIDE RECORDS SUMMARY | 2024-09-07 15:57 | XMS_ITS | Clinical Summary ---
Author Organization [employer] Address [address] [facility] 7[address] [place] [address] Care Team Providers Care Sawing And Assembly Supervisor Name Role Phone Heidi Romeo NP Primary Care Provider [phone] Allergies No known active allergies Medications Diclofenac Sodium 1 % gel Apply 2 g topically every 6 (six) hours. 08/10/19 22 Active Blood Pressure kit Active clotrimazole (Lotrimin AF) 1 % cream Apply to affected area twice a day for 1 month 60 g 2 03/22/20 24 Active lisinopril 30 MG tablet TAKE 1 TABLET BY MOUTH EVERY DAY 90 tablet 06/11/19 25 Active acetaminophen (Tylenol 8 Hour) 650 MG ER tabletIndicatio ns:Periodontal disease,Severe dental caries Take 1 tablet (650 mg) by mouth every 8 (eight) hours if needed for mild pain. Do not crush, chew, or split. 30 tablet 08/11/19 25 Active cholecalciferol (Vitamin D-3) 25 MCG (1000 UT) capsuleIndicati ons:Vitamin D deficiency Take 1 capsule (25 mcg) by mouth Once per day. 90 capsule 3 08/18/19 25 026 Active Acetaminophen 500 MG capsule Take 1 capsule by mouth every 8 (eight) hours. 08/10/19 22 025 Discontinued amoxicillin (Amoxil) 500 MG capsuleIndicati ons:Periodontal disease,Severe dental caries Take 1 capsule (500 mg) by mouth every 8 (eight) hours for 7 days. 21 capsule 08/11/19 25 025 ibuprofen 200 MG tabletIndicatio ns:Periodontal disease,Severe dental caries Take 1 tablet (200 mg) by mouth 3 times daily. 20 tablet 08/11/19 25 025 Discontinued ibuprofen 600 MG tabletIndicatio ns:Chronic low back pain, unspecified back pain laterality, unspecified whether sciatica present Take 1 tablet (600 mg) by mouth if needed in the morning, at noon, and at bedtime for mild pain (with food) for up to 20 days. 30 tablet 1 08/18/19 25 025 Active Problems Problem Noted Date Diagnosed Date Tubular adenoma 08/17/2024 Assessment & Plan (08/17/2024 2:00 PM EDT): Referral to GI, may be overdue for colonsocopy based on hx record Periodontal disease 08/10/2024 Severe dental caries 08/10/2024 Chronic low back pain 06/08/2024 Assessment & Plan (08/17/2024 2:00 PM EDT): In care with physiatry reports pain keeps pt up at night Rx for iburpofen Take with food Vitamin D deficiency 06/08/2024 Assessment & Plan (08/17/2024 1:59 PM EDT): Stable, renew vit d 3 Gluteal tendinitis 04/22/2022 Hypertensive retinopathy 02/20/2020 Non-toxic multinodular goiter 09/17/2019 Breast lump 01/02/2018 Essential hypertension 01/02/2018 Assessment & Plan (08/17/2024 1:59 PM EDT): At goal, continue lisinopril Assessment & Plan (06/19/2024 4:16 PM EST): Pt reports compliance with medications 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 Upcoming visit is scheduled Encounters Date Type Department Care Team Description 08/17/2024 1:30 PM EDT Telemedicine [facility] [place] [address] Heidi Romeo NP Tubular adenoma (Primary Dx); Chronic low back pain, unspecified back pain laterality, unspecified whether sciatica present; Vitamin D deficiency; Essential hypertension 08/16/2024 Travel 08/10/2024 11:30 AM EDT Office Visit [facility] [address] [facility] [place] [address] Yang Armas DDS Periodontal disease (Primary Dx); Severe dental caries 08/10/2024 Telephone [facility] [address] Yang Armas DDS unable to post insurance 08/06/2024 Population Health Risk Score [facility] () Department [address] [place] [phone] Provider, Population Health Generic 08/06/2024 Telephone [facility] [place] [address] Kell Hogan MA Chart Prep 07/09/2024 Telephone [facility] [address] [place] [phone] Heidi Romeo NP Results 07/01/2024 Telephone [facility] [address] [place] [phone] Manny Carson [place] July recall 06/22/2024 Orders Only [facility] [address] [place] [phone] Heidi Romeo NP 06/11/2024 Refill [facility] [address] [place] [phone] Heidi Romeo NP from Last 3 Months Immunizations Name Administration [...] 03/22/2024 2:32 PM EDT Plan of Treatment Upcoming Encounters Date Type Department Care Team (Late st Contact Info) Description 09/21/2024 1:30 PM EDT Office Visit [facility] [address] [place] [address] Yang Armas, DDS [address] [place] [address] Health Maintenance Due Date Last Done Comments CT Colonography 1965 Colonoscopy 1965 Colorectal Cancer Screening 1965 Dental Oral Exam 1965 Dental Prophylaxis 1965 Dental X-Ray: Bitewings 1963 Depression Screening 1965 FIT DNA/Cologuard 1965 FIT 1965 FOBT 1965 HIV Screening 1965 Sigmoidoscopy 1965 Hepatitis C Screening 10/25/1981 Pneumococcal Vaccine: 50+ Years (1 of 2 - PCV) 10/25/1982 COVID-19 Vaccine (3 - Modern a risk series) 11/01/2020 10/04/2020, 09/06/2020 RSV Patients and Patients Aged 60 years or older (1 - Risk 60-74 years 1-dose series) 2023 Influenza Vaccine (#1) 2024 , 03/18/2018 SDOH Screening 05/28/2025 05/28/2024 Alcohol/Substance Use Screening 08/17/2025 08/17/2024 Tobacco Screening 08/17/2025 08/17/2024 Mammogram 03/29/2026 03/29/2024, 03/20/2022, 05/14/2018 Dental X-Ray: Full Mouth 08/12/2027 08/10/2024 Cervical Cancer Screening 03/17/2028 HPV/Cotest 03/17/2028 03/17/2023, [...] Procedure Name Priority Date/Time Associated Diagnosis Comments PANORAMIC RADIOGRAPHIC IMAGE Routine 08/10/2024 11:30 AM EDT CASE PRESENTATION, DETAILED AND EXTENSIVE TREATMENT PLANNING Routine 08/10/2024 11:30 AM EDT LIMITED ORAL EVALUATION - PROBLEM FOCUSED Routine 08/10/2024 11:30 AM EDT US THYROID Routine 06/22/2024 1:57 PM EST LIPID PANEL, STANDARD Routine 06/15/2024 9:00 AM [...] Recently Relevant to Health Maintenance Results * US Thyroid (06/22/2024 1:57 PM EST) Anatomical Region Laterality Modality Head, Neck Ultrasound 06/22/2024 1:57 PM EST Narrative 06/25/2024 1:37 PM EST ? [facility] ?[address] ?[place] [address] ? Ultrasound Report ? Signed ? Patient: Jami Burns ?MR# ?? : [id number] ? : 1965 ?Acct:[id number] ? Age/Sex: 58 / F ?ADM Date: 06/22/24 ? Loc: HO.US ? Attending Dr: Heidi Romeo COMMERCIAL LENDING VICE PRESIDENT ? Ordering Physician: Heidi Romeo NP ?? Date of Service: 06/22/24 ?? Procedure(s): US thyroid ?? Accession Number(s): [id number] ? cc: Heidi Romeo NP ? EXAMINATION: ?? US THYROID ? CLINICAL INFORMATION: ?? Thyroid nodule ? COMPARISON: ?? Ultrasound thyroid 10/17/2021 ? TECHNIQUE: ?? Linear transducer grayscale and color Doppler examination with ?? attention to the region of the thyroid. ? FINDINGS: ? SIZE: Measurements of the thyroid lobes and nodules are given in ?? sagittal, anteroposterior and transverse dimensions respectively. ? Right Thyroid Lobe: 5.0 x 2.7 x 2.1 cm, volume 15.0 mL. ?? Parenchyma: The gland echotexture is heterogenous. Thyroid vascularity ?? is normal. ?? Previously measured 4.4 x 2.0 x 1.9 cm and volume 8.7 mL. ? Left Thyroid Lobe: 4.1 x 2.1 x 1.9 cm cm, volume 8.7 mL. ?? Parenchyma: The gland echotexture is heterogeneous. Thyroid vascularity ?? is normal. ?? Previously measured 4.4 x 2.1 x 1.8 cm in volume 0.5 mL. ? Isthmus: 4.9 cm in maximum AP dimension. Previous measurement 0.60 cm ? Estimated total number of nodules greater than or equal to 1 cm: 3. ?? Technical Support Internship nodules are described as follows: ? 1. Location: Right mid pole. ? Size: 1.1 x 0.50 x 0.90 cm, volume 0.25 mL. Previously measured ?? 1.2 x 0.90 x 1.1 cm and 0.60ml ? Nodule characteristics: ? Composition: Spongiform (0). ? Echogenicity: None ? Shape: Wider ? Margins: Smooth (0). ? Echogenic Foci: None. ? ACR TI-RADS total points: 0 ? ACR TI-RADS category: 1 ? 2. Location: Right upper pole. ? Size: 1.5 x 0.92 x 1.1 cm, volume 0.75 mL. Previously not seen. ? Nodule characteristics: ? Composition: Solid (2). ? Echogenicity: None ? Shape: Wider ? Margins: Smooth (0). ? Echogenic Foci: None. ? ACR TI-RADS total points: 3 ? ACR TI-RADS category: 3 ? 3. Location: Left midpole. ? Size: 1.2 x 0.82 x 0.98 cm, volume 2.50 mL. Not seen previously. ? Nodule characteristics: ? Composition: Solid/almost completely solid (2). ? Echogenicity: Hyperechoic (1). ? Shape: Wider ? Margins: Smooth (0). ? Echogenic Foci: None (0). ? ACR TI-RADS total points: 4 ? ACR TI-RADS category: 4 ? 4. Location: Mid pole. ? Size: 0.60 x 0.50 x 0.60 cm, volume 0.10 mL. ? Nodule characteristics: ? Composition: Solid (2). ? Echogenicity: Hypoechoic ? Shape: Wider ? Margins: Smooth (0). ? Echogenic Foci: None (0). ? ACR TI-RADS total points: 4. Previously 2 ? ACR TI-RADS category: 4. Previously 2. ? A small cystic nodule is seen in lower pole measuring subcentimeter ?? with total points 4 ??and Ti-RADS Category 4. ? NODES: No lymphadenopathy is seen in the tissue surrounding the thyroid ?? gland. ? US/US thyroid ?? IMPRESSION: ?? Large right lobe with heterogeneous thyroid gland but normal ?? vascularity. There are at least 3 nodules which are category 4 ?? measuring around 1 cm. Recommend follow-up in one year. ? ACR TI-RADS RECOMMENDATION REFERENCE: ?? Ultrasound-guided fine-needle aspiration, followup ultrasound, no ?? further follow up. ? * TR1 (0 point) and TR2 (2 points): No FNA or follow up. ? * TR3 (3 points): FNA if more than or equal to 2.5 cm in maximum ?? dimension, followup ultrasound in 1, 3 and 5 years if 1.5 to 2.4 cm in ?? maximum dimension. ? * TR4 (4-6 points): FNA if more than or equal to 1.5 cm in maximum ?? dimension, followup ultrasound in 1, 2, 3 and 5 years if 1 to 1.4 cm in ?? maximum dimension. ? * TR5 (more than or equal to 7 points): FNA if more than or equal to 1 ?? cm in maximum dimension, followup ultrasound every year for 5 years if ?? 0.5 to 0.9 cm in maximum dimension. ? * TR3, TR4 or TR5 nodules that are below the size threshold for ?? followup receive no follow up. ? Electronically signed by: ??Jean Paul Toro MD ??06/25/2024 01:35 PM EST RP ? Dictated By: ?Jean Paul Toro MD ? Signed By: ?<Electronically signed by Jean Paul Toro MD in OV> ?06/25/24 1335 ? DD/ 1357 ? TD/TT: 06/22/24 1406 ? Software Quality Analyst: MSM ? Procedure Note Donotuseinterpreter, Image - 06/25/2024 [place] [address] Ultrasound Report Signed Patient: Jami Burns DMR# : [id number] : 1965Acct:[id number] Age/Sex: 58 / FADM Date: 06/22/24 Loc: HO.US Attending Dr: Heidi Romeo NP Ordering Physician: Heidi Romeo NP Date of Service: 06/22/24 Procedure(s): US thyroid Accession Number(s): [id number] cc: Heidi Romeo NP EXAMINATION: US THYROID CLINICAL INFORMATION: Thyroid nodule COMPARISON: Ultrasound thyroid 10/17/2021 TECHNIQUE: Linear transducer grayscale and color Doppler examination with attention to the region of the thyroid. FINDINGS: SIZE: Measurements of the thyroid lobes and nodules are given in sagittal, anteroposterior and transverse dimensions respectively. Right Thyroid Lobe: 5.0 x 2.7 x 2.1 cm, volume 15.0 mL. Parenchyma: The gland echotexture is heterogenous. Thyroid vascularity is normal. Previously measured 4.4 x 2.0 x 1.9 cm and volume 8.7 mL. Left Thyroid Lobe: 4.1 x 2.1 x 1.9 cm cm, volume 8.7 mL. Parenchyma: The gland echotexture is heterogeneous. Thyroid vascularity is normal. Previously measured 4.4 x 2.1 x 1.8 cm in volume 0.5 mL. Isthmus: 4.9 cm in maximum AP dimension. Previous measurement 0.60 cm Estimated total number of nodules greater than or equal to 1 cm: 3. [employer] Support Internship nodules are described as follows: 1. Location: Right mid pole. Size: 1.1 x 0.50 x 0.90 cm, volume 0.25 mL. Previously measured 1.2 x 0.90 x 1.1 cm and 0.60ml Nodule characteristics: Composition: Spongiform (0). Echogenicity: None Shape: Wider Margins: Smooth (0). Echogenic Foci: None. ACR TI-RADS total points: 0 ACR TI-RADS category: 1 2. Location: Right upper pole. Size: 1.5 x 0.92 x 1.1 cm, volume 0.75 mL. Previously not seen. Nodule characteristics: Composition: Solid (2). Echogenicity: None Shape: Wider Margins: Smooth (0). Echogenic Foci: None. ACR TI-RADS total points: 3 ACR TI-RADS category: 3 3. Location: Left midpole. Size: 1.2 x 0.82 x 0.98 cm, volume 2.50 mL. Not seen previously. Nodule characteristics: Composition: Solid/almost completely solid (2). Echogenicity: Hyperechoic (1). Shape: Wider Margins: Smooth (0). Echogenic Foci: None (0). ACR TI-RADS total points: 4 ACR TI-RADS category: 4 4. Location: Mid pole. Size: 0.60 x 0.50 x 0.60 cm, volume 0.10 mL. Nodule characteristics: Composition: Solid (2). Echogenicity: Hypoechoic Shape: Wider Margins: Smooth (0). Echogenic Foci: None (0). ACR TI-RADS total points: 4. Previously 2 ACR TI-RADS category: 4. Previously 2. A small cystic nodule is seen in lower pole measuring subcentimeter with total points 4 and Ti-RADS Category 4. NODES: No lymphadenopathy is seen in the tissue surrounding the thyroid gland. US/US thyroid IMPRESSION: Large right lobe with heterogeneous thyroid gland but normal vascularity. There are at least 3 nodules which are category 4 measuring around 1 cm. Recommend follow-up in one year. ACR TI-RADS RECOMMENDATION REFERENCE: Ultrasound-guided fine-needle aspiration, followup ultrasound, no further follow up. * TR1 (0 point) and TR2 (2 points): No FNA or follow up. * TR3 (3 points): FNA if more than or equal to 2.5 cm in maximum dimension, followup ultrasound in 1, 3 and 5 years if 1.5 to 2.4 cm in maximum dimension. * TR4 (4-6 points): FNA if more than or equal to 1.5 cm in maximum dimension, followup ultrasound in 1, 2, 3 and 5 years if 1 to 1.4 cm in maximum dimension. * TR5 (more than or equal to 7 points): FNA if more than or equal to 1 cm in maximum dimension, followup ultrasound every year for 5 years if 0.5 to 0.9 cm in maximum dimension. * TR3, TR4 or TR5 nodules that are below the size threshold for followup receive no follow up. Electronically signed by: Jean Paul Toro MD 06/25/2024 01:35 PM EST Dictated By: Jean Paul Toro MD Signed By: <Electronically signed by Jean Paul Toro MD in OV> 06/25/24 1335 DD/ 1357 TD/TT: 06/22/24 1406 Software Quality Analyst: [facility] Heidi Romeo NP [facility] [place] PROCEDURES Final Result * Vitamin D, 25-Hydroxy, Total, Immunoassay (06/15/2024 9:00 AM EST) Vitamin D 25-OH Total 54.6 >30 ng/mL [facility] Comment:Health Based Referen ce Values*< 20 ng/mL Lvxtyqhum70-95 ng/mL Insufficient> 30 ng/mL Sufficient*Lisa GOMEZ. N [...] EST 06/15/2024 11:17 AM EST Heidi Romeo COMMERCIAL LENDING VICE PRESIDENT LAB BLOOD ORDERABLES Final Resul t Performing Organization Address [facility] Co de Phone Number [facility] [address] [place] [phone] * TSH W/Reflex to FT4 (06/15/2024 9:00 AM EST) Pathologist [facility] TSH reflex Free T4 0.94 0.32 - 4.0 uIU/mL [facility] Blood Venous blood specimen / Unknown 06/15/2024 9:00 AM EST 06/15/2024 11:17 AM EST us Heidi Romeo COMMERCIAL LENDING VICE PRESIDENT LAB BLOOD ORDERABLES Final Resul t Performing Organization Address [facility] Co de Phone Number [facility] [address] [place] [phone] * (ABNORMAL) CBC auto differential (06/15/2024 9:00 AM EST) White Blood Count 7.5 4.8 - 10.8 X10*3/uL [facility] Red Blood Count 4.64 4.20 - 5.50 X10*6/uL [facility] Hemoglobin 13.6 12.0 - 16.0 g/dl [facility] Hematocrit 40.4 37.0 - 47.0 % [facility] Mean Corpuscular Volume 87.1 80.0 - 98.0 fL [facility] Mean Corpuscular Hemoglobin 29.3 27.0 - 33.0 pg [facility] Mean Corpuscular HGB Conc 33.7 31.0 - 35.0 g/dl [facility] Red Cell Distribution Width 12.1 11.0 - 16.0 % [facility] Platelet Count 255 160 - 400 X10*3/uL [facility] Mean Platelet Volume 10.5 9.4 - 12.3 fL [facility] Neutrophils Percent Auto 74.4(H) 45 - 73 % [facility] Imm Gran Pct Auto 0.4 0.0 - 0.4 % [facility] Lymphocytes Percent Auto 18.5(L) 20 - 40 % [facility] Monocytes Percent Auto 5.6 2 - 11 % [facility] Eosinophils Percent Auto 0.8 0 - 4 % [facility] Basophils Percent Auto 0.3 0 - 2 % [facility] NRBC Pct Auto 0.0 0.0 - 0.2 /100WBC [facility] Neutrophils Absolute Auto 5.6 2.0 - 8.3 x10*3/uL [facility] Imm Gran Abs Auto 0.03 0.00 - 0.03 X10*3/uL [facility] Lymphocytes Absolute Auto 1.4 1.2 - 4.9 X10*3/uL [facility] Monocytes Absolute Auto 0.4 0.1 - 1.2 X10*3/uL [facility] Eosinophils Absolute Auto 0.1 0.0 - 0.4 X10*3/uL [facility] Basophils Absolute Auto 0.0 0.0 - 0.2 X10*3/uL [facility] NRBC Abs Auto 0.000 0.0 - 0.012 X10*3/uL [facility] Blood Venous blood specimen / Unknown 06/15/2024 9:00 AM EST 06/15/2024 11:17 AM EST us Heidi Romeo NP LAB BLOOD ORDERABLES Final Resul t [facility] [address] [place] [phone] * Hemoglobin A1c (06/15/2024 9:00 AM EST) Hemoglobin A1c 4.6 <6.0 % [facility] Comment:Hemoglobin A1C Refer ence Range Adults: 4.8 - 6.0 % Non diabetic: < 6.0 % Goal: < 7.0 %Additional Action Suggested: > 8.0 %Note: Hemoglobin A1c results are invalid for patients with abnormal amounts of HbF. Blood transfusions may impact the HbA1c concentration in the patient sample. Estimated Average Glucose 85 mg/dL [facility] Comment:eAG = Estimated ave rage glucose which is %A1C expressed asaverage glucose, using the formula of the D4N-WtfrqzuUfqgvnb Glucose study (ADAG), Diabetes Care, Vol.31,#8,Dec. 2007 Blood Venous blood specimen / Unknown 06/15/2024 9:00 AM EST 06/15/2024 11:17 AM EST us Heidi Romeo NP LAB BLOOD ORDERABLES Final Resul t [facility] [address] [place] [address] [phone] * (ABNORMAL) Lipid Panel, Standard (06/15/2024 9:00 AM EST) Triglycerides 88 <150 mg/dL [facility] Comment:Desirable Triglyceri de: less than 150 mg/dLBorderline High Triglyceride 150-199 mg/dLHigh Triglyceride: 200-499 mg/dLVery High Triglyceride: greater than or equal to 5OO mg/dL Cholesterol 161 <200 mg/dL [facility] Comment:Desirable Cholestero l: less than 200 mg/dLBorderline High Cholesterol: 200-239 mg/dLHigh Cholesterol: greater than 239 mg/dL LDL Cholesterol Calculated 110(H) <100 mg/dL [facility] Comment:Desirable LDL: less than 100 mg/dLNear Optimal/Above Optimal LDL: 110- 129 mg/dLBorderline High LDL: 130-159 mg/dLHigh LDL: 160-189 mg/dLVery High LDL: greater than or equal to 190 mg/dL HDL Cholesterol 34(L) >40 mg/dL [facility] Comment:Desirable HDL: great er than 40 mg/dL Note: This HDL assay may give artificially low results in patients with liver disease. Blood Venous blood specimen / Unknown 06/15/2024 9:00 AM EST 06/15/2024 11:17 AM EST us Heidi Romeo COMMERCIAL LENDING VICE PRESIDENT LAB BLOOD ORDERABLES Final Resul t Performing Organization Address City/[facility] Co de Phone Number [facility] [address] [place] [phone] * (ABNORMAL) Comprehensive Metabolic Panel (06/15/2024 9:00 AM EST) Sodium 140 135 - 145 mmol/L [facility] Potassium 3.5 3.3 - 5.1 mmol/L [facility] Chloride 106 96 - 108 mmol/L [facility] Carbon Dioxide 29 22 - 29 mmol/L [facility] Anion Gap 9(L) 12 - 20 [facility] Urea Nitrogen (BUN) 13 9 - 16 mg/dL [facility] Creatinine, Serum 0.69 0.5 - 1.4 mg/dL [facility] Estimated Glomerular Filt Rate >60 [facility] Comment:Chronic Kidney Disea se: Estimated GFR < 60 mL/min/1.22f0Yfuqqj Kidney Disease: Estimated GFR < 15 mL/min/1.73m2 Glucose 93 60 - 115 mg/dL [facility] Calcium 8.6 8.4 - 10.2 mg/dL [facility] Bilirubin, Total 0.9 0.0 - 1.0 mg/dL [facility] Aspartate Amino Transferase 20 5 - 31 U/L [facility] Alanine Aminotransferase 19 0 - 31 U/L [facility] Total Protein 7.3 6.5 - 8.0 g/dL [facility] Albumin Level 4.1 3.5 - 5.0 g/dL [facility] Alkaline Phosphatase 74 39 - 117 U/L [facility] Blood Venous blood specimen / Unknown 06/15/2024 9:00 AM EST 06/15/2024 11:17 AM EST us Heidi Romeo COMMERCIAL LENDING VICE PRESIDENT LAB BLOOD ORDERABLES Final Resul t Performing Organization Address City/[facility] Co de Phone Number [facility] [address] [facility] [place] [phone] * BI Mammogram Screening Tomosynthesis Bilateral (03/29/2024 3:45 PM EST) Anatomical Region Laterality Modality Breast Bilateral Mammography 03/29/2024 3:45 PM EST Narrative 04/07/2024 12:23 PM EST ? [facility] ? [address] ?[place] [id number] ? Mammography Report ? Signed ? Patient: Angel John,Mae ?MR# ?? : [id number] ? : 1965 ?Acct:[id number] ? Age/Sex: 58 / F ?ADM Date: 03/29/24 ? Loc: HO.MAMMO ? Attending Dr: Heidi B Graef COMMERCIAL LENDING VICE PRESIDENT ? Ordering Physician: Ousmane,Heidi B COMMERCIAL LENDING VICE PRESIDENT ?Results: 1Negati ?? ve ? Date of Service: 03/29/24 ?Follow Up: 1 Year From Orig ?? inal Mammogram ? Procedure(s): MM tomosynthesis screening BI ?? Accession Number(s): [id number] ? cc: Heidi Romeo B COMMERCIAL LENDING VICE PRESIDENT ? EXAMINATION: ?? MM SCREENING DIGITAL BREAST [...] ??Katrina Galloway DO ??04/07/2024 12:20 PM EST ? Dictated By: ?Katrina Galloway DO ? Signed By: ?<Electronically signed by Katrina Galloway, DO in OV> ? 04/07/24 1220 ? DD/ 1545 ? TD/TT: 03/29/24 1610 ? Software Quality Analyst: ? Procedure Note Rich, Image - 04/07/2024 [facility] [address] [place] [address] Mammography Report Signed Patient: Jami Burns [facility]# : [id number] : 1965Acct:[id number] Age/Sex: 58 / FADM Date: 03/29/24 Loc: SHILPA Attending Dr: Heidi Romeo COMMERCIAL LENDING VICE PRESIDENT Ordering Physician: Heidi Romeo NPResults: 1Negati ve Date of Service: 03/29/24Follow Up: 1 Year From Orig inal Mammogram Procedure(s): MM tomosynthesis screening BI Accession Number(s): [id number] cc: Heidi Romeo COMMERCIAL LENDING VICE PRESIDENT EXAMINATION: MM SCREENING DIGITAL BREAST TOMOSYNTHESIS, BILATERAL [...] by: Katrina Galloway DO 04/07/2024 12:20 PM EST RP Dictated By: Katrina Galloway DO Signed By: <Electronically signed by Katrina Galloway DO in OV> 04/07/24 1220 DD/ 1545 TD/TT: 03/29/24 1610 Software Quality Analyst: Heidi Romeo NP IMG BI PROCEDURES Final Result * HPV mRNA E6/E7 w/Reflex to HPV Genotypes 16, 18/45 (03/17/2023 2:14 PM EDT) HPV nRNA E6/E7 Not Detected Not Detected [facility] Comment:Methodology: Transcr iption-Mediated AmplificationThis assay detects E6/E7 viral messenger RNA (mRNA) from 14high-risk HPV types (16,18,31,33,35,39,45,51,52,56,58,59,66,68).Cervical sources are required for HPV testing.If a vaginal source from a patient who has had atotal hysterectomy with removal of cervix wassubmitted, please contact the testing laboratoryfor alternative testing options.For additional information, please refer tohttp://education.AltraVax/faq/DRV580l8(This link if provided for information/educational purposes only.)THIS TEST WAS PERFORMED AT:[facility] [place] [phone] LUCIA MD HPV mRNA E6/E7 TNP [facility] HPV 16 RNA TNP [facility] HPV 18/45 RNA TNP [facility] 03/17/2023 2:14 PM EDT 03/18/2023 7:00 AM EDT us Yu Cortez CNM LAB CYTOLOGY ORDERABLES F inal Result [facility] [address] [place] [address] [phone] * Pap Smear (03/17/2023 2:14 PM EDT) 03/17/2023 2:14 PM EDT 03/18/2023 7:00 AM EDT Narrative [facility] - 03/20/2023 9:41 AM EDT ----- ------- Name: Jami Burns ? Age/Sex: 57/F ? : 1965 Unit#: [id number] ?? Attend Dr: YU CORTEZ CNM ?Re03/17/23 ?Status: DEP REF ? Location: HO.HHCLNP ? Disch: ? ----- ------- SPEC : [id number] ?RECD: 03/18/23 ? STATUS: ??SOUT ? REQ NUM: [id number] ? LELAND: 03/17/23 ? SUBM DR: YU CORTEZ CNM ? ENTERED: ??03/18/23 ?SP TYPE: Pap Smr ?OTHR : ? ORDERED: ??Pap Smear ? Interpretation ?? Satisfactory for evaluation. ?? Negative for intraepithelial lesion or malignancy. ?HPV mRNA E6/E7: ?NOT DETECTED ? This assay detects E6/E7 viral messenger RNA (mRNA) from 14 high-risk HPV types (16, 18, ?? 31, 33, 35, 39, 45, 51, 52, 56, 58, 59, 66, 68) ?? HPV testing performed by [facility], [place], [place]. ??See reference laboratory ?? pion of the EMR for entire report. ?Clinical Information LMP: Postmenopausal Previous PAP test: 2018, WNL ? Material Received ?? ThinPrep-Cervical ----- ------- Signed (signature on file) BRICE Bryson ([facility]) 03/20/23 0941 ? ----- ------- ? END OF REPORT ? us Yu Cortez [facility] CYTOLOGY ORDERABLES F inal Result [facility] [address] [place] [phone] from Last 3 Months or Most Recently Relevant to Health Maintenance Insurance [facility] C[facility] STAND ADULT Care Teams Sawing And Assembly Supervisor Relationship Specialty Start Date End Date Heidi Romeo NP [address] [place] [id number] PCP - General Family Medicine 11/20/23
--- OUTSIDE RECORDS SUMMARY | 2024-09-07 15:57 | XMS_ITS | Encounter Summary ---
Author Organization [employer] Address [address] [place] [address] Care Team Providers Care Parts Designer Name Role Phone Heidi Romeo NP Primary Care Provider [phone] Reason for Visit * Reason Onset Date Comments unable to post insurance 08/10/2024 Encounter Details Date Type Department Care Team ([facility] Contact Info) Description 08/10/2024 Telephone [facility] [address] [place], [place] [phone] Yang Armas DDS [address] [place], [place] [phone] unable to post insurance Social History Tobacco Use Types Packs/Day Years [...] encounter Miscellaneous Notes * Telephone Encounter - Rozina Andersen - 08/10/2024 8:14 AM EDT Patient is coming in for emergency visit at 11:30. Unable to post MH portal not running on PAR sideDR documented in this encounter Plan of Treatment Upcoming Encounters Date Type Department Care Team (Late st Contact Info) Description 09/21/2024 1:30 PM EDT Office Visit [facility] [address] [place] [address] Yang Armas DDS [address] [place] [address] documented as of this encounter Visit Diagnoses Not on filedocumented in this encounter Care Teams Parts Designer Relationship Specialty Start Date End Date Heidi Romeo NP [address] [place] [address] PCP - General Family Medicine 11/20/23 documented as of this encounter
== END 2024-09-08 13:05 | disposition home or self-care (01) ==
PROVIDERS: PCP Nurse Practitioner Family; Visit Provider Nurse Practitioner Family
DX: D12.3 Benign neoplasm of transverse colon (principal); I10 Essential (primary) hypertension
CPT/HCPCS: 99213

== ENCOUNTER → 2024-09-07 13:02 | Outpatient (BNVA) | payer MEDICAID, SELFPAY | PROVIDERS: PCP Nurse Practitioner Family; Visit Provider Nurse Practitioner Family ==

== ENCOUNTER 2024-09-07 19:51 | Emergency (ER) | payer MEDICAID, SELFPAY ==
--- NOTE | ~2024-09-07 | XR_ITS ---
CLINICAL HISTORY: chest pain 1 view chest x-ray Comparison: None available Findings: Low lung volumes with mild bibasilar atelectasis and/or pneumonitis. Mild emphysematous changes suggested. Cardiac silhouette and mediastinal contours are within limits of normal. Degenerative changes include imaged AC joints. IMPRESSION: Mild bibasilar atelectasis. This document has been electronically signed by: Carlos Toth MD on 09/07/2024 21:37:46
--- NOTE | ~2024-09-07 | CT_ITS ---
CLINICAL HISTORY: high blood pressure. [facility] CT head without contrast Comparison: None Findings: No acute intracranial hemorrhage. Mild white matter lesions likely due to small-vessel ischemic disease. Right frontal and right parietal nodularity is nonspecific and may reflect small calcified meningiomas; with right frontal measuring 1 cm.. No midline shift or hydrocephalus. Mild fluid and mucosal thickening of the paranasal sinuses including ethmoid air cells. Retention cysts including maxillary sinuses. Small left mastoid effusion. Metal artifacts noted. No acute skull fracture, accounting for artifacts. IMPRESSION: 1. No acute intracranial abnormality by CT. 2. Mild white matter lesions are nonspecific and may reflect small-vessel ischemic disease. 3. Calcified 1 cm right frontal meningioma. This document has been electronically signed by: Carlos Toth MD on 09/07/2024 22:31:13
[2024-09-07 20:38] VITALS: BP 176/89; PULSE 121; RESP 16; TEMP 36.7; O2SAT 94; BMI 31.9
--- NOTE | 2024-09-07 20:47 | ED_ITS ---
HPI - General Adult General Chief complaint: General Medical Stated complaint: High blood pressure Time Seen by Provider: 09/07/24 22:04 Source: patient Mode of arrival: ambulatory Limitations: no limitations History of Present Illness ED Provider: HPI narrative: Patient has a spinal no block for chronic low back pain does have history of hypertension take lisinopril 30 mg daily for a while after procedure patient's came home felt pale and had the headache checked the blood pressure was 176/89 no nausea no vomiting after arrival blood pressure was 150/78 no significant back pain no chest pain or palpitation Related Data Home Medications ?Medication ?Instructions ?Recorded ?Confirmed lisinopril 30 mg tablet 30 mg PO DAILY 02/29/20 07/27/24 Previous Rx's ?Medication ?Instructions ?Recorded cholecalciferol (vitamin D3) 50 50 mcg PO DAILY #90 caps 09/09/23 mcg (2,000 unit) capsule bisacodyl 5 mg tablet,delayed 5 mg PO ONCE 1 day #3 tabs 09/07/24 release hydrochlorothiazide 12.5 mg tablet 12.5 mg PO QAM #30 tabs 09/07/24 polyethylene glycol 3350 17 238 g PO ONCE #238 grams 09/07/24 gram/dose oral powder (Miralax) Allergies Allergy/AdvReac Type Severity Reaction Status Date / Time No Known Allergies Allergy Verified 09/07/24 20:39 Review of Systems 2 Review of Systems: Yes all other systems are reviewed and are negative PMFSH Past Medical History Medical History Vitamin D deficiency Chronic constipation Non-toxic multinodular goiter Gluteal tendinitis of both buttocks Goiter diffuse, nontoxic Retinopathy Obesity Breast mass, right ALL (acute lymphocytic leukemia) Essential hypertension Thyroid nodule Surgical History Hx of colonoscopy S/P fine needle aspiration Hx of section Family History Family History Father Lung cancer Mother Hypertension Social History Social History Household Members: Children Household Members Other:: son and daughter in law Alcohol intake: never Patient Tobacco Use Status: Never used Tobacco Smoked in Last 30 Days: No Use of substances other than those prescribed or required for medical reasons: No Advance Directives: No Advance Directives Information Provided: No Do you have a plan to hurt others: No Plan Patient : No service: No Current occupational status: unemployed Gender identity: Female Physical Exam ED Vital Signs: Vital Signs - 24 hr 09/07/24 20:38 09/07/24 21:10 09/07/24 21:11 Temperature 98.1 F 98.3 F 98.3 F Pulse Rate 121 H 118 H 106 H Respiratory Rate 16 12 15 Blood Pressure 176/89 H 197/100 H 164/88 H Pulse Oximetry 94 97 96 Oxygen Delivery Method Room Air Room Air Room Air 09/07/24 22:01 09/07/24 23:09 09/07/24 23:17 Temperature 97.8 F 98.0 F Pulse Rate 92 85 85 Respiratory Rate 18 20 20 Blood Pressure 150/78 H 144/75 H 144/75 H Pulse Oximetry 93 95 95 Oxygen Delivery Method Room Air Room Air Room Air BMI result Body Mass Index 31.9 Appearance: Alert. Oriented X3. No acute distress. Eyes: No pallor or icterus ENT: Pharynx normal. Oral Mucosa moist upper artery nontender Neck: Normal inspection. Neck supple. CVS: Normal heart rate and rhythm. Pulses normal. Respiratory: No respiratory distress. Equal air entry bilateral, no wheezing/rales/rhonchi Abdomen: Soft and nontender. Bowel sounds are present, no mass palpable, no CVA tenderness Skin: Skin warm and dry. Normal skin color. Normal skin turgor. Extremities: No lower extremity edema. No calf tenderness Neuro: Oriented X 3. No motor deficit. No sensory deficit.No cerebellar signs , cranial nerves II-XII intact Course Course Course Narrative: RME: 58 yold female presents to the ED for elevated bloore pressure, headache, and chest pain since 11am. negative for any Neuro deficits. NIH Score is zero. Patient has EKG, labs, Head CT scan ordered, chest xray orderd. Medical Decision Making Medical Decision Making [facility] Narrative: Blood pressure improved 158/84 advised patient to follow with PCP Lab Data [facility] Lab Attestation statement: I reviewed the patient's lab results. 09/07/24 20:51 09/07/24 20:51 Labs: Lab Results 09/07/24 Range/Units 20:51 WBC 6.2 (4.8-10.8) X10*3/uL RBC 4.67 (4.20-5.50) X10*6/uL Hgb 13.7 (12.0-16.0) g/dl Hct 40.0 (37.0-47.0) % MCV 85.7 (80.0-98.0) fL MCH 29.3 (27.0-33.0) pg MCHC 34.3 (31.0-35.0) g/dl RDW 12.0 (11.0-16.0) % Plt Count 296 (160-400) X10*3/uL MPV 9.8 (9.4-12.3) fL Immature Gran % (Auto) 0.6 H (0.0-0.4) % Neut % (Auto) 89.8 H (45-73) % Lymph % (Auto) 9.3 L (20-40) % Ulster % (Auto) 0.3 L (2-11) % Eos % (Auto) 0.0 (0-4) % Baso % (Auto) 0.0 (0-2) % Lymph # (Auto) 0.6 L (1.2-4.9) X10*3/uL Ulster # (Auto) 0.0 L (0.1-1.2) X10*3/uL Eos # (Auto) 0.0 (0.0-0.4) X10*3/uL Baso # (Auto) 0.0 (0.0-0.2) X10*3/uL Abs Immat Gran (auto) 0.04 H (0.00-0.03) X10*3/uL Absolute Neuts (auto) 5.6 (2.0-8.3) x10*3/uL Absolute Nucleated RBC 0.000 (0.0-0.012) X10*3/uL Nucleated RBC % (auto) 0.0 (0.0-0.2) /100WBC PT 12.8 H (10.9-12.4) SEC INR 1.1 (0.9-1.1) APTT 28.9 (26.0-36.8) SEC Sodium 142 (135-145) mmol/L Potassium 3.9 (3.3-5.1) mmol/L Chloride 109 H (96-108) mmol/L Carbon Dioxide 21 L (22-29) mmol/L Anion Gap 16 (12-20) BUN 15 (9-16) mg/dL Creatinine 0.86 (0.5-1.4) mg/dL Estim Creat Clear Calc 62.6 Estimated GFR > 60 Random Glucose 262 H (60-115) mg/dL Calcium 9.8 D (8.4-10.2) mg/dL Total Bilirubin 0.5 (0.0-1.0) mg/dL AST 20 (5-31) U/L ALT 19 (0-31) U/L Alkaline Phosphatase 86 (39-117) U/L Troponin I High Sens < 2.7 (<3.5-17.0) ng/L B-Natriuretic Peptide 15 (<100) pg/mL Total Protein 7.5 (6.5-8.0) g/dL Albumin 4.5 (3.5-5.0) g/dL Independent Interpretation I performed an independent interpretation of an: CT Scan Radiology Impression Discussion of test interpretation with radiology: I have reviewed the radiologist's reading. Discharge Plan Discharge Clinical Impression: Hypertension Patient Disposition: Home, Self-Care Instructions: Chronic Hypertension (DC) Additional Instructions: Check your blood pressure daily twice a day at least it should be less than 130/85 Decrease salt intake If blood pressure persistently elevated in spite of taking medication you may start taking hydrochlorothiazide 12.5 mg daily Follow up with your PCP next Prescriptions: New hydrochlorothiazide 12.5 mg tablet 12.5 mg PO QAM Qty: 30 0RF No Action cholecalciferol (vitamin D3) 50 mcg (2,000 unit) capsule 50 mcg PO DAILY Qty: 90 3RF lisinopril 30 mg Tablet 30 mg PO DAILY bisacodyl 5 mg tablet,delayed release (DR/EC) 5 mg PO ONCE 1 Days Qty: 3 0RF Rx Instructions: per colonoscopy instructions polyethylene glycol 3350 [Miralax] 17 gram/dose powder 238 g PO ONCE Qty: 238 0RF Rx Instructions: per colonoscopy prep instructions Interventions: ED Discharge Assessment Last Done: 09/07/24 23:17 Discharge Date/Time: 09/07/24 23:20 Print Language: Syriac
--- NOTE | 2024-09-07 20:48 | ECG_ITS ---
Test Reason : CHEST DISCOMFORT Blood Pressure : */* mmHG Vent. Rate : 109 BPM Atrial Rate : 109 BPM P-R Int : 156 ms QRS Dur : 80 ms QT Int : 350 ms P-R-T Axes : 30 29 43 degrees QTcB Int : 471 ms Sinus tachycardia Possible Left atrial enlargement Nonspecific ST abnormality Abnormal ECG No previous ECGs available Referred By: George Roque Electronically Signed By: HARRIET HOUSTON MD
[2024-09-07 20:57] LABS: MANUAL DIFF FLAG NO
[2024-09-07 20:59] LABS: Hemoglobin 13.7 g/dl (12.0-16.0); Imm Gran Abs Auto 0.04 X10*3/uL (0.00-0.03); Imm Gran Pct Auto 0.6 % (0.0-0.4); Lymphocytes Absolute Auto 0.6 X10*3/uL (1.2-4.9); Lymphocytes Percent Auto 9.3 % (20-40); Mean Corpuscular HGB Conc 34.3 g/dl (31.0-35.0); Mean Corpuscular Hemoglobin 29.3 pg (27.0-33.0); Mean Corpuscular Volume 85.7 fL (80.0-98.0); Mean Platelet Volume 9.8 fL (9.4-12.3); Monocytes Percent Auto 0.3 % (2-11); Neutrophils Absolute Auto 5.6 x10*3/uL (2.0-8.3); Neutrophils Percent Auto 89.8 % (45-73); Platelet Count 296 X10*3/uL (160-400); Red Blood Count 4.67 X10*6/uL (4.20-5.50); White Blood Count 6.2 X10*3/uL (4.8-10.8)
[2024-09-07 21:08] LABS: INTERNATIONAL NORM RATIO 1.1 (0.9-1.1); Prothrombin Time 12.8 SEC (10.9-12.4)
[2024-09-07 21:10] VITALS: BP 197/100; PULSE 118; RESP 12; TEMP 36.8; O2SAT 97
[2024-09-07 21:11] VITALS: BP 164/88; PULSE 106; RESP 15; TEMP 36.8; O2SAT 96
[2024-09-07 21:11] LABS: Partial Thromboplastin Time 28.9 SEC (26.0-36.8)
[2024-09-07 21:12] LABS: Alanine Aminotransferase 19 U/L (0-31); Albumin Level 4.5 g/dL (3.5-5.0); Alkaline Phosphatase 86 U/L (39-117); Anion Gap 16 (12-20); Aspartate Amino Transferase 20 U/L (5-31); Bilirubin Total 0.5 mg/dL (0.0-1.0); Blood Urea Nitrogen 15 mg/dL (9-16); Calcium 9.8 mg/dL (8.4-10.2); Carbon Dioxide 21 mmol/L (22-29); Chloride 109 mmol/L (96-108); Creatinine Clr Calc Pharmacy 62.6; Estimated Glomerular Filt Rate > 60; Glucose Random 262 mg/dL (60-115); Potassium 3.9 mmol/L (3.3-5.1); Sodium 142 mmol/L (135-145); Total Protein 7.5 g/dL (6.5-8.0)
[2024-09-07 21:17] LABS: B Type Natriuretic Peptide 15 pg/mL (<100)
[2024-09-07 21:20] LABS: Troponin-I High Sensitivity < 2.7 ng/L (<3.5-17.0)
[2024-09-07 22:01] VITALS: BP 150/78; PULSE 92; RESP 18; TEMP 36.6; O2SAT 93
[2024-09-07 23:09] VITALS: BP 144/75; PULSE 85; RESP 20; O2SAT 95
[2024-09-07 23:17] VITALS: BP 144/75; PULSE 85; RESP 20; TEMP 36.7; O2SAT 95
== END 2024-09-07 23:20 | disposition home or self-care (01) ==
PROVIDERS: Physician Assistant; Emergency Provider Internal Medicine; PCP Nurse Practitioner Family
DX: I10 Essential (primary) hypertension (principal); G89.29 Other chronic pain; M54.50 Low back pain, unspecified; Z98.890 Other specified postprocedural states; Z86.0101 Personal history of adenomatous and serrated colon polyps
CPT/HCPCS: 36415; 70450; 71045; 80053; 83880; 84484; 85025; 85610; 85730; 93005; 99212; 99284; 99285

== ENCOUNTER → 2024-09-07 20:48 | Outpatient (BNV) | payer MEDICAID, SELFPAY | PROVIDERS: PCP Nurse Practitioner Family; Visit Provider Radiology Neuroradiology | DX: D32.0 Benign neoplasm of cerebral meninges (principal); R07.9 Chest pain, unspecified | CPT/HCPCS: 70450; 71045 ==

== ENCOUNTER → 2024-09-07 20:48 | Outpatient (BNV) | payer MEDICAID, SELFPAY | PROVIDERS: Emergency Provider Internal Medicine; PCP Nurse Practitioner Family; Visit Provider Internal Medicine Cardiovascular Disease | DX: R00.0 Tachycardia, unspecified (principal) | CPT/HCPCS: 93010 ==

== ENCOUNTER 2025-01-18 12:46 | Outpatient (REF) | payer MEDICAID, SELFPAY ==
--- OUTSIDE RECORDS SUMMARY | 2025-01-18 13:30 | XMS_ITS | Clinical Summary ---
Author Organization [employer] Address [address] [facility] 7t [place] [address] Care Team Providers Care Clam Sorter Name Role Phone Heidi Romeo NP Primary Care Provider [phone] Allergies No known active allergies Medications Diclofenac Sodium 1 % gel Apply 2 g topically every 6 (six) hours. 2 Active Blood Pressure kit Active clotrimazole (Lotrimin AF) 1 % cream Apply to affected area twice a day for 1 month 60 g 2 4 Active cholecalciferol (Vitamin D-3) 25 MCG (1000 UT) capsuleIndicati ons:Vitamin D deficiency Take 1 capsule (25 mcg) by mouth Once per day. 90 capsule 3 5 08/18/19 26 Active lisinopril 30 MG tablet TAKE 1 TABLET BY MOUTH EVERY DAY 90 tablet 1 5 Active acetaminophen (Tylenol 8 Hour) 650 MG ER tabletIndicatio ns:Severe dental caries,Pain, dental,Periodon lovely disease Take 1 tablet (650 mg) by mouth every 8 (eight) hours if needed for mild pain. Do not crush, chew, or split. 30 tablet 5 Active Active Problems Problem Noted Date Diagnosed Date Dietary counseling 11/22/2024 Assessment & Plan (12/16/2024 2:42 PM EDT): Dietary Recommendations: Fruits, vegetables, whole grains, protein foods, and fat-free or low-fat dairy products are healthy choices. Eat different types of protein foods in your diet. This can include seafood, lean meats, poultry, beans, peas, lentils, nuts, seeds, soy products, and eggs. Limit foods and beverages higher in added sugars, saturated fat, and sodium. Exercise Recommendations: At least 150 minutes of moderate-intensity physical activity per week, or an equivalent combination of moderate- and vigorous-intensity activity Exercise counseling 11/22/2024 Urinary frequency 11/22/2024 Assessment & Plan (12/16/2024 2:56 PM EDT): bladder ordered Lab Results Component Value Date HGBA1C 4.6 06/15/2024 Healthcare maintenance 11/22/2024 Assessment & Plan (12/16/2024 2:56 PM EDT): Pap was completed 03/17 due 03/22 Mammogram- last 03/2024 due 03/2025 Colonoscopy 2021 due 2026 Anticipatory guidance reviewed Right hip pain 11/22/2024 Assessment & Plan (12/16/2024 2:57 PM EDT): Referral to ortho Lumbar herniated disc 11/22/2024 Assessment & Plan (12/16/2024 2:57 PM EDT): Referral to ortho Pain, dental 09/21/2024 Tubular adenoma 08/17/2024 Overview (09/10/2024): 2021 tubular adenoma 2026 colonoscopy scheduled Assessment & Plan (08/17/2024 2:00 PM EDT): [...] 01/02/2018 Essential hypertension 01/02/2018 Assessment & Plan (12/16/2024 2:58 PM EDT): Slightly above goal of <120/80 Continue lisinopril 30 mg. The 10-year ASCVD risk score (Mariia DK, et al., 2019) is: 5.8% Values used to calculate the score: Age: 59 years Sex: Female Is Non- : No Diabetic: No Tobacco smoker: No Systolic Blood Pressure: 130 mmHg Is BP treated: Yes HDL Cholesterol: 34 mg/dL Total Cholesterol: 161 mg/dL Assessment & Plan (08/17/2024 1:59 PM EDT): [...] Encounters Date Type Department Care Team Description 11/22/2024 2:45 PM EDT Office Visit [facility] MED[facility] [address] [place] [address] Heidi Romeo NP Essential hypertension (Primary Dx); Dietary counseling; Exercise counseling; Urinary frequency; Healthcare maintenance; Right hip pain; Lumbar herniated disc 11/22/2024 Travel 11/15/2024 Patient Outreach [facility] [address] [place] [address] Heidi Romeo NP Pre-visit Planning (SDOH was already completed) 11/09/2024 2:00 PM EDT Office Visit [facility] ADULT DENTAL [address] [place] [address] Yang Armas DDS from Last 3 Months Immunizations Immunization Administration Dates Next Due Hep B, adult 06/01/2019,04/22/2018,03/18/2018 Influenza injectable quadriv alent IIV4 with preservative 06/01/2019,03/18/2018 Moderna Covid-19 Vaccine 12+ 10/04/2020,09/07/19 21 Pneumococcal Conjugate PCV 20 11/02/2024 Tdap 04/22/2018 Zoster, Recombinant 11/02/2024,03/16/2020,2019 Family History Medical History Relation Name Comments Cataracts Father Relation Name Status Comments Father Social History Tobacco Use Types Packs/Day Years Used Date Smoking Tobacco: Never Passive Smoke Exposure: Never Smokeless Tobacco: Never Tobacco Cessation:Counseling Given: Not Answered Alcohol Use Standard Drinks/Week Comments Never 0 (1 standard drink = 0.6 oz pur e alcohol) Depression Answer Date Recorded Patient Health Questionnaire-9 Score 4 11/22/2024 Patient Health Questionnaire-9 Score 4 11/22/2024 Last PHQ-9: Questionnaire Data Not on file 0 11/22/2024 Housing Stability Answer Date Recorded What is [...] off services in your home? No 05/28/2024 Depression Answer Date Recorded Patient Health Questionnaire-2 Score 2 11/22/2024 Internet Access Answer Date Recorded Internet Access [...] Sign Reading Time Taken Comments Blood Pressure 130/84 11/22/2024 2:45 PM EDT Pulse 86 11/22/2024 2:45 PM EDT Temperature 36.7 C (98 F) 11/22/2024 2:45 PM EDT Respiratory Rate 14 11/22/2024 2:45 PM EDT Oxygen Saturation 96% 11/22/2024 2:45 PM EDT Inhaled Oxygen Concentration - - Weight 75.1 kg (165 lb 9.6 oz) 11/22/2024 2:45 P M EDT Height 149.9 cm (4' 11 ) 11/22/2024 2:45 PM EDT Body Mass Index 33.45 11/22/2024 2:45 PM EDT Plan of Treatment Health Maintenance Due Date Last Done Comments CT Colonography 1965 Dental Oral Exam 1965 Dental Prophylaxis 1965 Dental X-Ray: Bitewings 1965 FIT DNA/Cologuard 1965 FIT 1965 FOBT 1965 HIV Screening 1965 Sigmoidoscopy 1965 Hepatitis C Screening 10/25/1981 COVID-19 Vaccine (3 - Modern a risk series) 11/01/2020 10/04/2020, 09/06/2020 RSV Patients and Patients Aged 60 years or older (1 - Risk 60-74 years 1-dose series) 2023 Influenza Vaccine (#1) 2025 , 03/18/2018 SDOH Screening 05/28/2025 05/28/2024 Alcohol/Substance Use Screening 08/17/2025 08/17/2024 Depression Screening 11/22/2025 11/22/2024, 11/22/2024 Disability Screening 11/22/2025 11/22/2024 Tobacco Screening 11/22/2025 11/22/2024 Mammogram 03/29/2026 03/29/2024, 03/20/2022, 05/14/2018 Dental X-Ray: Full Mouth 08/12/2027 08/10/2024 Colonoscopy 09/08/2027 09/07/2024 Colorectal Cancer Screening 09/08/2027 Cervical Cancer Screening 03/17/2028 HPV/Cotest 03/17/2028 03/17/2023, 03/18/2018 Pap Smear 03/17/2028 03/17/2023 DTaP/Tdap/Td Vaccines (2 - T d or Tdap) 04/22/2028 04/22/2018 Lipid Panel 06/15/2029 06/15/2024, 12/29/2021, 05/09/2020 Hepatitis B Vaccines Completed 06/01/2019, 04/22/2018, 03/18/2018 Pneumococcal Vaccine: 50+ Years Completed 11/02/2024 Zoster Vaccines Completed 11/02/2024, 03/16/2020, 01/12/2020 HIB Vaccines Aged Out No [...] patient's age to complete this topic Meningococcal B Vaccine Aged Out No l onger eligible based on patient's age to complete [...] Procedure Name Priority Date/Time Associated Diagnosis Comments NO CHARGE VISIT Routine 11/09/2024 2:00 PM EDT HM COLONOSCOPY Routine 09/07/2024 PANORAMIC RADIOGRAPHIC IMAGE Routine 08/10/2024 11:30 AM EDT LIPID PANEL, STANDARD Routine 06/15/2024 9:00 AM EST Essential hypertension BI MAMMOGRAM SCREENING TOMOSYNTHESIS BILATERAL Routine 03/29/2024 3:45 PM EST HPV MRNA E6/E7 REFLEX TO HPV 16, 18/45 Routine 03/17/2023 2:14 PM EDT PAP SMEAR Routine 03/17/2023 2:14 PM EDT from Last 3 Months or Most Recently Relevant to Health Maintenance Results * Hm Colonoscopy (09/07/2024) Colonoscopy Normal Normal Narrative Vicky Gonzalez - 09/07/2024 Repeat in 3 years see external hospital admission note us Historical Provider MD HEALTH MAINTENANCE Final Result * (ABNORMAL) Lipid Panel, Standard (06/15/2024 9:00 AM EST) Triglycerides 88 <150 mg/dL [facility] Comment:Desirable Triglyceri de: less than 150 mg/dLBorderline High Triglyceride 150-199 mg/dLHigh Triglyceride: 200-499 mg/dLVery High Triglyceride: greater than or equal to 5OO mg/dL Cholesterol 161 <200 mg/dL [facility] Comment:Desirable Cholestero l: less than 200 mg/dLBorderline High Cholesterol: 200-239 mg/dLHigh Cholesterol: greater than 239 mg/dL LDL Cholesterol Calculated 110(H) <100 mg/dL [facility] Comment:Desirable LDL: less than 100 mg/dLNear Optimal/Above Optimal LDL: 110- 129 mg/dLBorderline High LDL: 130-159 mg/dLHigh LDL: 160-189 mg/dLVery High LDL: greater than or equal to 190 mg/dL HDL Cholesterol 34(L) >40 mg/dL [facility] Comment:Desirable HDL: great er than 40 mg/dL Note: This HDL assay may give artificially low results in patients with liver disease. Blood Venous blood specimen / Unknown 06/15/2024 9:00 AM EST 06/15/2024 11:17 AM EST Heidi Romeo NP LAB BLOOD ORDERABLES Final Resul t [facility] [address] [place] [address] [phone] * BI Mammogram Screening Tomosynthesis Bilateral (03/29/2024 3:45 PM EST) Anatomical Region Laterality Modality Breast Bilateral Mammography 03/29/2024 3:45 PM EST Narrative 04/07/2024 12:23 PM EST [facility] [address] [place] [address] Mammography Report Signed Patient: Jami Burns MR# : [id number] : 1965 Acct:[id number] Age/Sex: 58 / F ADM Date: 03/29/24 Loc: HO.ADRIANO Attending Dr: Heidi Romeo NP Ordering Physician: Heidi Romeo NP Results: 1Negati ve Date of Service: 03/29/24 Follow Up: 1 Year From Orig ina Mammogram Procedure(s): MM tomosynthesis screening BI Accession Number(s): [id number] cc: Heidi Romeo NP EXAMINATION: MM SCREENING DIGITAL BREAST TOMOSYNTHESIS, BILATERAL [...] Katrina Galloway DO 04/07/2024 12:20 PM EST Dictated By: Katrina Galloway DO Signed By: <Electronically signed by Katrina Galloway DO in OV> 04/07/24 1220 DD/ 1545 TD/TT: 03/29/24 1610 Public Relations Representative: Procedure Note Donotuseinterpreter, Image - 04/07/2024 [facility] [address] [place], [place] [address] Mammography Report Signed Patient: Jami Burns DMR# : [id number] : 1965Acct:[id number] Age/Sex: 58 / FADM Date: 03/29/24 Loc: HO.MAMMO Attending Dr: Heidi Romeo RAWHIDE BONE ROLLER Ordering Physician: Heidi Romeo NPResults: 1Negati ve Date of Service: 03/29/24Follow Up: 1 Year From Orig inal Mammogram Procedure(s): MM tomosynthesis screening BI Accession Number(s): [id number] cc: Heidi Romeo RAWHIDE BONE ROLLER EXAMINATION: MM SCREENING DIGITAL BREAST TOMOSYNTHESIS, BILATERAL [...] Katrina Galloway DO 04/07/2024 12:20 PM EST Dictated By: Katrina Galloway DO Signed By: <Electronically signed by Katrina Galloway DO in OV> 04/07/24 1220 DD/ 1545 TD/TT: 03/29/24 1610 Public Relations Representative: Heidi Romeo RAWHIDE BONE ROLLER IMG BI PROCEDURES Final Result * HPV mRNA E6/E7 w/Reflex to HPV Genotypes 16, 18/45 (03/17/2023 2:14 PM EDT) HPV nRNA E6/E7 Not Detected Not Detected [facility] Comment:Methodology: Transcr iption-Mediated AmplificationThis assay detects E6/E7 viral messenger RNA (mRNA) from 14high-risk HPV types (16,18,31,33,35,39,45,51,52,56,58,59,66,68).Cervical sources are required for HPV testing.If a vaginal source from a patient who has had atotal hysterectomy with removal of cervix wassubmitted, please contact the testing laboratoryfor alternative testing options.For additional information, please refer tohttp://education.[employer]/faq/LHE352v9(This link if provided for information/educational purposes only.)THIS TEST WAS PERFORMED AT:[employer] [place] [id number] LUCIA MD HPV mRNA E6/E7 TNP [facility] HPV 16 RNA [facility] HPV 18/45 RNA [facility] 03/17/2023 2:14 PM EDT 03/18/2023 7:00 AM EDT Yu Cortez [facility] CYTOLOGY ORDERABLES F inal Result [facility] [address] [place] [phone] * Pap Smear (03/17/2023 2:14 PM EDT) 03/17/2023 2:14 PM EDT 03/18/2023 7:00 AM EDT Narrative [facility] - 03/20/2023 9:41 AM EDT ----- ------- Name: Jami Burns Age/Sex: 57/F : 1965 Unit#: [id number] Attend Dr: YU CORTEZ Michel Re03/17/23 Status: DEP REF Location: [facility] Disch: ----- ------- SPEC : [id number] RECD: 03/18/23 STATUS: EMMA LIU NUM: [id number] LEL[place]: 03/17/23 [facility] DR: YU CORTEZ ENTERED: 03/18/23 SP TYPE: Pap Smr OT DR: ORDERED: Pap Smear Interpretation Satisfactory for evaluation. Negative for intraepithelial lesion or malignancy. HPV mRNA E6/E7: NOT DETECTED This assay detects E6/E7 viral messenger RNA (mRNA) from 14 high-risk HPV types (16, 18, 31, 33, 35, 39, 45, 51, 52, 56, 58, 59, 66, 68) HPV testing performed by [employer], [place], [place]. See reference laboratory pion of the EMR for entire report. Clinical Information LMP: Postmenopausal Previous PAP test: 2018, WNL Material Received ThinPrep-Cervical ----- ------- Signed (signature on file) BRICE Bryson (ASC) 03/20/23 0941 ----- ------- END OF REPORT us Yu LANDEROS LAB CYTOLOGY ORDERABLES F inal Result [facility] [address] [place] [address] [phone] from Last 3 Months or Most Recently Relevant to Health Maintenance Insurance [facility] C3 [facility] [place] AD[place] Care Teams Clam Sorter Relationship Specialty Start Date End Date Heidi Romeo NP [address] [place] [phone] PCP - General Family Medicine 11/20/23
--- OUTSIDE RECORDS SUMMARY | 2025-01-18 13:30 | XMS_ITS | Encounter Summary ---
Author Organization [employer] Address [address] [facility] 7t [place] [address] Care Team Providers Care Templer Head Name Role Phone Heidi Romeo NP Primary Care Provider [phone] Reason for Visit * Reason Onset Date Comments unable to post insurance 08/10/2024 Encounter Details Date Type Department Care Team ([facility] st Contact Info) Description 08/10/2024 Telephone [facility] ADULT DENTAL [address] [place], [place] [phone] Yang Armas DDS [address] [place], [place] [phone] unable to post insurance Social History Tobacco [...] on filedocumented in this encounter Care Teams Templer Head Relationship Specialty Start Date End Date Heidi Romeo NP [address] [place] [phone] PCP - General Family Medicine 11/20/23 documented as of this encounter
== END 2025-01-18 12:47 | disposition home or self-care (01) ==
LOC: HO.US 12:46
PROVIDERS: PCP Nurse Practitioner Family; Visit Provider Nurse Practitioner Family
DX: Z13.89 Encounter for screening for other disorder (principal)

== ENCOUNTER 2025-02-05 08:49 | Outpatient (REF) | payer MEDICAID, SELFPAY ==
--- OUTSIDE RECORDS SUMMARY | 2025-02-05 08:52 | XMS_ITS | Clinical Summary ---
Author Organization [employer] Address [address] [facility] 7t [place] [address] Care Team Providers Care Urban Redevelopment Specialist Name Role Phone Heidi Romeo NP Primary Care Provider [phone] Allergies No known active allergies Medications Diclofenac [...] Description 11/22/2024 2:45 PM EDT Office Visit [facility] [address] [place] [address] Heidi Romeo NP Essential hypertension (Primary Dx); Dietary counseling; Exercise counseling; Urinary frequency; Healthcare maintenance; Right hip pain; Lumbar herniated disc 11/22/2024 Travel 11/15/2024 Patient Outreach [facility] [address] [place] [address] Heidi Romeo NP Pre-visit Planning (SDOH was already completed) 11/09/2024 2:00 PM EDT Office Visit [facility] ADULT DENT[facility] [address] [place] [address] Yang Armas DDS from Last 3 Months [...] 9:00 AM EST) Triglycerides 88 <150 mg/dL [facility] Comment:Desirable Triglyceri de: less than 150 mg/dLBorderline High Triglyceride 150-199 mg/dLHigh Triglyceride: 200-499 mg/dLVery High Triglyceride: greater than or equal to 5OO mg/dL Cholesterol 161 <200 mg/dL [facility] Comment:Desirable Cholestero l: less than 200 mg/dLBorderline High Cholesterol: 200-239 mg/dLHigh Cholesterol: greater than 239 mg/dL LDL Cholesterol Calculated 110(H) <100 mg/dL [facility] Comment:Desirable LDL: less than 100 mg/dLNear Optimal/Above Optimal LDL: 110- 129 mg/dLBorderline High LDL: 130-159 mg/dLHigh LDL: 160-189 mg/dLVery High LDL: greater than or equal to 190 mg/dL HDL Cholesterol 34(L) >40 mg/dL [facility] Comment:Desirable HDL: great er than 40 mg/dL Note: This HDL assay may give artificially low results in patients with liver disease. Blood Venous blood specimen / Unknown 06/15/2024 9:00 AM EST 06/15/2024 11:17 AM EST Heidi Romeo NP LAB BLOOD ORDERABLES Final Resul t [facility] [address] [place] [address] [phone] * BI Mammogram Screening Tomosynthesis Bilateral (03/29/2024 3:45 PM EST) Anatomical Region Laterality Modality Breast Bilateral Mammography 03/29/2024 3:45 PM EST Narrative 04/07/2024 12:23 PM EST [facility] [address] [place] [address] Mammography Report Signed Patient: Jami Burns MR# : [id number] : 1965 Acct:[id number] Age/Sex: 58 / F ADM Date: 03/29/24 Loc: HO.ADRIANO Attending Dr: Heidi Romeo NP Ordering Physician: Heidi Romeo NP Results: 1Negati ve Date of Service: 03/29/24 Follow Up: 1 Year From Orig ina Mammogram Procedure(s): MM tomosynthesis screening BI Accession Number(s): [id number] cc: Heidi Romeo NP EXAMINATION: MM SCREENING [...] 04/07/24 1220 DD/ 1545 TD/TT: 03/29/24 1610 Moss Picker: Procedure Note Donotuseinterpreter, Image - 04/07/2024 [facility] [address] [place], [place] [address] Mammography Report Signed Patient: Jami Burns DMR# : [id number] : 1965Acct:[id number] Age/Sex: 58 / FADM Date: 03/29/24 Loc: HO.MAMMO Attending Dr: Heidi Romeo CARDIAC CATH TECHNOLOGIST Ordering Physician: Heidi Romeo NPResults: 1Negati ve Date of Service: 03/29/24Follow Up: 1 Year From Orig inal Mammogram Procedure(s): MM tomosynthesis screening BI Accession Number(s): [id number] cc: Heidi Romeo CARDIAC CATH TECHNOLOGIST EXAMINATION: MM SCREENING DIGITAL BREAST TOMOSYNTHESIS, BILATERAL [...] 04/07/24 1220 DD/ 1545 TD/TT: 03/29/24 1610 Moss Picker: Heidi Romeo CARDIAC CATH TECHNOLOGIST IMG BI PROCEDURES Final Result * HPV mRNA E6/E7 w/Reflex to HPV Genotypes 16, 18/45 (03/17/2023 2:14 PM EDT) HPV nRNA E6/E7 Not Detected Not Detected [facility] Comment:Methodology: Transcr iption-Mediated AmplificationThis assay detects E6/E7 viral messenger RNA (mRNA) from 14high-risk HPV types (16,18,31,33,35,39,45,51,52,56,58,59,66,68).Cervical sources are required for HPV testing.If a vaginal source from a patient who has had atotal hysterectomy with removal of cervix wassubmitted, please contact the testing laboratoryfor alternative testing options.For additional information, please refer tohttp://education.[employer]SC/faq/DGK864c1(This link if provided for information/educational purposes only.)THIS TEST WAS PERFORMED AT:[employer] [place] [id number] LUCIA MD HPV mRNA E6/E7 TNP [facility] HPV 16 RNA [facility] HPV 18/45 RNA [facility] 03/17/2023 2:14 PM EDT 03/18/2023 7:00 AM EDT Yu Cortez [facility] CYTOLOGY ORDERABLES F inal Result [facility] [address] [place] [phone] * Pap Smear (03/17/2023 2:14 PM EDT) 03/17/2023 2:14 PM EDT 03/18/2023 7:00 AM EDT Narrative [facility] - 03/20/2023 9:41 AM EDT ----- ------- Name: Jami Burns Age/Sex: 57/F : 1965 Unit#: [id number] Attend Dr: YU CORTEZ Michel Re03/17/23 Status: DEP REF Location: [facility] Disch: ----- ------- SPEC : [id number] RECD: 03/18/23 STATUS: EMMA LIU NUM: [id number] LELAND: 03/17/23 [facility] DR: YU CORTEZ ENTERED: 03/18/23 SP TYPE: Pap Smr OT DR: ORDERED: Pap Smear Interpretation Satisfactory for evaluation. Negative for intraepithelial lesion or malignancy. HPV mRNA E6/E7: NOT DETECTED This assay detects E6/E7 viral messenger RNA (mRNA) from 14 high-risk HPV types (16, 18, 31, 33, 35, 39, 45, 51, 52, 56, 58, 59, 66, 68) HPV testing performed by [employer], [place], [place]. See reference laboratory pion of the EMR for entire report. Clinical Information LMP: Postmenopausal Previous PAP test: 2018, WNL Material Received ThinPrep-Cervical ----- ------- Signed (signature on file) BRICE Bryson (ASC) 03/20/23 0941 ----- ------- END OF REPORT us Yu LANDEROS LAB CYTOLOGY ORDERABLES F inal Result [facility] [address] [place] [address] [phone] from Last 3 Months or Most Recently Relevant to Health Maintenance Insurance [facility] C3 [facility] [place] AD[place] Care Teams Urban Redevelopment Specialist Relationship Specialty Start Date End Date Heidi Romeo NP [address] [place] [phone] PCP - General Family Medicine 11/20/23
--- OUTSIDE RECORDS SUMMARY | 2025-02-05 08:52 | XMS_ITS | Encounter Summary ---
Author Organization [employer] Address [address] [facility] 7t [place] [address] Care Team Providers Care Dependency Program Director Name Role Phone Heidi Romeo NP Primary Care Provider [phone] Reason for Visit * Reason Onset Date Comments unable to post insurance 08/10/2024 Encounter Details Date Type Department Care Team ([facility] st Contact Info) Description 08/10/2024 Telephone [facility] ADULT DENT[facility] [address] [place], [place] [phone] Yang Armas DDS [address] [place], [place] [phone] unable to post insurance Social History Tobacco [...] on filedocumented in this encounter Care Teams Dependency Program Director Relationship Specialty Start Date End Date Heidi Romeo NP [address] [place] [phone] PCP - General Family Medicine 11/20/23 documented as of this encounter
[2025-02-05 10:42] LABS: Free T4 (Free Thyroxine) 1.22 ng/dL (0.71-1.85)
[2025-02-05 10:43] LABS: Thyroid Stimulating Hormone 1.03 uIU/mL (0.32-4.0)
== END 2025-02-05 08:50 | disposition home or self-care (01) ==
LOC: HO.LAB 08:49
PROVIDERS: Nurse Practitioner Family; Visit Provider Student in an Organized Health Care Education/Training Program
DX: E04.1 Nontoxic single thyroid nodule (principal); E55.9 Vitamin D deficiency, unspecified; E04.2 Nontoxic multinodular goiter
CPT/HCPCS: 36415; 82306; 84439; 84443

== ENCOUNTER 2025-02-15 12:45 | Outpatient (AMB) | payer MEDICAID, SELFPAY ==
--- NOTE | 2025-02-15 12:53 | MHC.OFFVIS ---
Vital Signs 02/15/25 12:56 Height 5 ft Weight 165 lb 9.074 oz BMI 32.3 BP 144/78 H Blood Pressure Location Lt brachial Position Sitting Pulse 89 Pulse Source Pulse Oximeter Pulse Oximetry (%) 97 Oxygen Delivery Method Room Air Intake Visit Reasons: NTMNG 1year follow up Intake Note: Patient present today for NTMNG 1year follow up visit. Waiter/Waitress Third Class Required: Yes Waiter/Waitress Third Class Language: Licensing Engineer Services: Waiter/Waitress Third Class Present Waiter/Waitress Third Class Name: Mishel [id number] Information Interpreted: non-clinical & clinical Accompanied by: Self / Same As Patient Allergies No Known Allergies Allergy (Verified 02/15/25 13:00) Medication List - Last Reconciled 02/15/25 by Bel Canela MD bisacodyl 5 mg PO ONCE 1 day cholecalciferol (vitamin D3) 50 mcg PO DAILY hydrochlorothiazide 12.5 mg PO QAM lisinopril 30 mg PO DAILY polyethylene glycol 3350 (Miralax) 238 grams PO ONCE HPI Comments Details: 59-year-old female with past medical history significant for 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 She was previously followed by Dr. Rodriguez, last visit was with Dr. Chan in July 2023. HPI from prior visit FNA biopsy with Dr. Bo 05/28/2019 left lower 3.5 cm nodule. FNA biopsy with Dr. Rodriguez 07/26/2021 of left midpole 2 cm, right midpole 1.7 cm and right lower pole 1.5 cm thyroid nodule. Cytology results for all 3 were benign. Most recent thyroid ultrasound in August 2023 showed stable size of the nodules. I reviewed the images myself which show 3 right-sided nodules, the right midpole and lower pole have been biopsied before. Also showed left mid and inferior nodules which have both been biopsied before previously.. No compressive symptoms. Minor pressure sensation intermittently. blood work from July 2023 showed normal thyroid function. No symptoms of hypothyroidism or hyperthyroidism. Weight stable. HR at 100 but she feels she is winded because of taking the stairs. Sister had thyroid disease but no one in family has thyroid cancer. Physical exam General: sitting comfortably in no acute distress HEENT: normocephalic/atraumatic, moist oral mucosa Neck: supple, symmetrical, no thyromegaly Cardiac: normal heart sounds Pulm: normal breath sounds B/L, no added breath sounds Abd: not distended, no tenderness Extremities: no edema, no signs of myxedema Neuro: AAO x3, Speech: normal, no facial droop, moving all 4 extremities Laboratory Tests 08/14/22 11/16/22 08/18/23 16:16 10:02 14:22 TSH 1.28 0.94 1.42 Free T4 1.29 1.16 1.17 Laboratory Tests 08/14/22 11/16/22 08/18/23 16:16 10:02 14:22 TSH 1.28 0.94 1.42 Free T4 1.29 1.16 1.17 02/05/25 09:00 TSH 1.03 Free T4 1.22 US THYROID 09/16 CLINICAL INFORMATION: Nontoxic multinodular goiter. COMPARISON: Ultrasound soft tissue head/neck thyroid dated 10/17/2021 and 03/05/2021. TECHNIQUE: Linear transducer grayscale and color Doppler examination with attention to the region of the thyroid. FINDINGS: SIZE: Measurements of the thyroid lobes and nodules are given in sagittal, anteroposterior and transverse dimensions respectively. Right Thyroid Lobe: 4.4 x 2.0 x 1.9 cm, volume 8.7 mL. Previously 4.0 x 2.5 x 1.9 cm, volume 9.9 mL. Parenchyma: The gland echotexture is homogeneous. Thyroid vascularity is normal. Left Thyroid Lobe: 4.4 x 2.1 x 1.8 cm, volume 8.5 mL. Previously 3.8 x 2.3 x 1.8 cm, volume 8.2 mL. Parenchyma: The gland echotexture is homogeneous. Thyroid vascularity is normal. Isthmus: 0.6 cm in maximum AP dimension. Previously 0.5 cm. Estimated total number of nodules greater than or equal to 1 cm: 4. Homeworker nodules are described as follows: 1. Location: Right superior. Size: 1.2 x 0.9 x 1.1 cm, volume 0.6 mL. Previously: 1.1 x 1.0 x 1.1 cm, volume 0.7 mL. Nodule characteristics: Composition: Solid (2). Echogenicity: Isoechoic (1). Shape: Not taller than wide (0). Margins: Smooth (0). Echogenic Foci: None (0). ACR TI-RADS total points: 3 Previous: 3 ACR TI-RADS category: 3 Previous: 3 Significant change in size (>/= 20% in 2 dimensions and minimal increase of 2 mm or 50% or greater increase in volume): No Change in features: No Change in ACR TI-RADS risk category: No 2. Location: Right mid. Size: 1.3 x 1.1 x 1.2 cm, volume 0.9 mL. Previously: 1.1 x 1.1 x 1.2 cm, volume 0.7 mL. Nodule characteristics: Composition: Solid/almost completely solid (2). Echogenicity: Isoechoic (1). Shape: Not taller than wide (0). Margins: Smooth (0). Echogenic Foci: None (0). ACR TI-RADS total points: 3 Previous: 3 ACR TI-RADS category: 3 Previous: 3 Significant change in size (>/= 20% in 2 dimensions and minimal increase of 2 mm or 50% or greater increase in volume): No Change in features: No Change in ACR TI-RADS risk category: No 3. Location: Right inferior. Size: 1.1 x 0.5 x 0.6 cm, volume 0.2 mL. Previously: 0.7 x 0.6 x 0.7 cm, volume 0.3 mL. Nodule characteristics: Composition: Solid/almost completely solid (2). Echogenicity: Isoechoic (1). Shape: Not taller than wide (0). Margins: Smooth (0). Echogenic Foci: None (0). ACR TI-RADS total points: 3 Previous: 3 ACR TI-RADS category: 3 Previous: 3 Significant change in size (>/= 20% in 2 dimensions and minimal increase of 2 mm or 50% or greater increase in volume): No Change in features: No Change in ACR TI-RADS risk category: No 4. Location: Left inferior. Size: 0.8 x 0.6 x 0.8 cm, volume 0.2 mL. Previously: 0.8 x 0.7 x 0.7 cm, volume 0.2 mL. Nodule characteristics: Composition: Mixed cystic and solid (1). Echogenicity: Isoechoic (1). Shape: Not taller than wide (0). Margins: Smooth (0). Echogenic Foci: None (0). ACR TI-RADS total points: 2 Previous: 2 ACR TI-RADS category: 2 Previous: 2 Significant change in size (>/= 20% in 2 dimensions and minimal increase of 2 mm or 50% or greater increase in volume): No Change in features: No Change in ACR TI-RADS risk category: No 5. Location: Left inferior. Size: 1.0 x 1.1 x 1.0 cm, volume 0.6 mL. Previously: Not documented on the prior study. Nodule characteristics: Composition: Mixed cystic and solid (1). Echogenicity: Isoechoic (1). Shape: Not taller than wide (0). Margins: Smooth (0). Echogenic Foci: None (0). ACR TI-RADS total points: 2 ACR TI-RADS category: 2 NODES: No lymphadenopathy is seen in the tissue surrounding the thyroid gland. US/US thyroid IMPRESSION: Multiple thyroid nodules as detailed above, none of which meets criteria for follow-up. [facility] Medical History Vitamin D deficiency Chronic constipation Non-toxic multinodular goiter Gluteal tendinitis of both buttocks Goiter diffuse, nontoxic Retinopathy Obesity Breast mass, right ALL (acute lymphocytic leukemia) Essential hypertension Thyroid nodule Surgical History Hx of colonoscopy S/P fine needle aspiration Hx of section Family History Father Lung cancer Mother Hypertension Social History Household Members: Children Household Members Other:: son and daughter in law Alcohol intake: never Patient Tobacco Use Status: Never used Tobacco service: No Current occupational status: unemployed Gender identity: Female Physical Exam Vital Signs: Last Vital Signs Pulse 89 02/15/25 12:56 BP 144/78 H 02/15/25 12:56 Pulse Ox 97 02/15/25 12:56 Oxygen Delivery Method Room Air 02/15/25 12:56 BMI result Body Mass Index 32.3 Assessment & Plan Assessment & Plan (1) Non-toxic multinodular goiter: Code(s): E04.2 - Nontoxic multinodular goiter Category: Medical Plan: Patient with no family history of thyroid cancer , with history of radiation in 1970 for ALL, who has NTMNG since 2019. She has had FNA biopsy of the left lower pole 3.5 cm nodule in May 2019, results not available, subsequently had FNA of the right midpole, right lower pole, left midpole nodules in September 2021 with benign cytology for all of them. Most recent thyroid ultrasound in August 2023 showed stable size of the nodules. I reviewed the images myself which show 3 right-sided nodules, the right midpole and lower pole have been biopsied before. Also showed left mid and inferior nodules which have both been biopsied before previously.. Given stable size of the nodules, would recommend repeat ultrasound in 2 years in August 2025. She is biochemically euthyroid per her last labs from January 2025.. No compressive symptoms. Plan: -ordered ultrasound thyroid to be done in July 2025 prior to her follow up with me in 08/2025 -TSH and free T4 to be done before follow up appointment Plan See above Orders: Orders US thyroid 08/08/25 E04.2 - Nontoxic multinodular goiter TSH reflex Free T4 08/01/25 E04.2 - Nontoxic multinodular goiter Patient Instructions: Do ultrasound of the thyroid in July 2025, someone will call you to schedule this, please make sure this is done a few weeks prior to your next appointment with me in August 2025 Do thyroid blood work a few days prior to your next follow up with me in July 2025, orders have been placed. H?gase panchito ecograf?a de tiroides en 2025, alguien le llamar? para programarla, aseg?rese de que se sage unas semanas antes de de leon pr?xima alecia conmigo en kole2025. H?gase un an?lisis de jason de tiroides unos d?as antes de de leon pr?ximo seguimiento conmigo en 2025, se canela realizado los pedidos. Coding Level of Care Code Est Pt Level 3 (36239) Diagnoses Non-toxic multinodular goiter E04.2
[2025-02-15 12:56] VITALS: BP 144/78; PULSE 89; O2SAT 97; BMI 32.3
--- OUTSIDE RECORDS SUMMARY | 2025-02-15 15:40 | XMS_ITS | Encounter Summary ---
Author Organization [employer] Address [address] [facility] [address] [place] [address] Care Team Providers Care Leg Breaker Name Role Phone Heidi Romeo NP Primary Care Provider [phone] Reason for Visit * Reason Onset Date Comments unable to post insurance 08/10/2024 Encounter Details Date Type Department Care Team ([facility] st Contact Info) Description 08/10/2024 Telephone [facility] [address] [place], [place] [phone] Yang Armas DDS [address], [place] [phone] unable to post insurance Social History Tobacco [...] on filedocumented in this encounter Care Teams Leg Breaker Relationship Specialty Start Date End Date Heidi Romeo NP [address] [place] [phone] PCP - General Family Medicine 11/20/23 documented as of this encounter
--- OUTSIDE RECORDS SUMMARY | 2025-02-15 15:40 | XMS_ITS | Clinical Summary ---
Author Organization [employer] Address [address] [facility] [address] [place] [address] Care Team Providers Care Data Analytics Chief Scientist Name Role Phone Heidi Romeo NP Primary Care Provider [phone] Allergies No known active allergies Medications Diclofenac [...] Encounters Date Type Department Care Team Description 02/05/2025 Orders Only GENERIC EXTERNAL DATA DEPARTMENT Provider, Generic External Data 11/22/2024 2:45 PM EDT Office Visit [facility] [address] [place] [address] Heidi Romeo NP Essential hypertension (Primary Dx); Dietary counseling; Exercise counseling; Urinary frequency; Healthcare maintenance; Right hip pain; Lumbar herniated disc 11/22/2024 Travel 11/15/2024 Patient Outreach [facility] [address] [place] [address] Heidi Romeo NP Pre-visit Planning (SDOH was already completed) from Last 3 Months Immunizations Immunization Administration [...] Procedure Name Priority Date/Time Associated Diagnosis Comments TSH W/REFLEX TO FT4 Routine 02/05/2025 9 :00 AM EDT TSH Routine 02/05/2025 9:00 AM EDT VITAMIN D,25-OH,TOTAL,IA Routine 02/05/2025 9:00 AM EDT Vitamin D deficiency HM COLONOSCOPY Routine 09/07/2024 PANORAMIC RADIOGRAPHIC IMAGE [...] Results * Vitamin D, 25-Hydroxy, Total, Immunoassay (02/05/2025 9:00 AM EDT) Vitamin D 25-OH Total 52.1 >30 ng/mL [facility] Comment: Health Based Reference Values*< 20 ng/mL Uthgfrpfh32-53 ng/mL Insufficient> 30 ng/mL Sufficient*Lisa GOMEZ. N Engl J Med. 2007;357:266-280There is no well-established upper level of normal vitamin Dlevels. Some laboratories use 50 ng/mL as an upper limit ofnormal. However, toxicity is patient-dependent and may occurat any level. Careful correlation with the patient'spresentation is necessary and, if there is concern forvitamin D toxicity, treatment should be consideredirrespective of the serum level.Care must be taken in interpreting Vitamin D [...] LC-MS/MS. Blood Venous blood specimen / Unknown 02/05/2025 9:00 AM EDT 02/05/2025 9:00 AM EDT us Heidi Romeo NP LAB BLOOD ORDERABLES Final Resul t [facility] [address] [place] [phone] * TSH with Reflex to Free T4 (02/05/2025 9:00 AM EDT) [facility] TSH reflex Free T4 1.03 0.32 - 4.0 uIU/mL [facility] 02/05/2025 9:00 AM EDT 02/05/2025 9:00 AM EDT us Heidi Romeo SUPERVISOR DELIVERY DEPARTMENT LAB BLOOD ORDERABLES Final Resul t Performing Organization Address City/[facility]/ZIP Co de Phone Number [facility] [address] [place] [phone] * TSH (02/05/2025 9:00 AM EDT) [facility] Thyroid Stimulating Hormone 1.03 0.32 - 4.0 uIU/mL [facility] Comment:TSH 3rd Generation ( [facility]) 02/05/2025 9:00 AM EDT 02/05/2025 9:00 AM EDT us Generic External Data Provider LAB BLOOD ORDERAB LES Final Result Performing Organization Address [facility]/ZIP Co de Phone Number [facility] [address] [place] [phone] * Hm Colonoscopy (09/07/2024) [facility] Colonoscopy Normal Normal Narrative Vicky Gonzalez - 09/07/2024 Repeat in 3 years see external hospital admission note us Historical Provider HEALTH MAINTENANCE Final Result * (ABNORMAL) Lipid Panel, Standard (06/15/2024 9:00 AM EST) [facility] Triglycerides 88 <150 mg/dL [facility] Comment:Desirable Triglyceri de: less than 150 mg/dLBorderline High Triglyceride 150-199 mg/dLHigh Triglyceride: 200-499 mg/dLVery High Triglyceride: greater than or equal to 5OO mg/dL Cholesterol 161 <200 mg/dL [facility] Comment:Desirable Cholestero l: less than 200 mg/dLBorderline High Cholesterol: 200-239 mg/dLHigh Cholesterol: greater than 239 mg/dL LDL Cholesterol Calculated 110(H) <100 mg/dL [facility] Comment:Desirable LDL: less than 100 mg/dLNear Optimal/Above Optimal LDL: 110- 129 mg/dLBorderline High LDL: 130-159 mg/dLHigh LDL: 160-189 mg/dLVery High LDL: greater than or equal to 190 mg/dL HDL Cholesterol 34(L) >40 mg/dL [facility] Comment:Desirable HDL: great er than 40 mg/dL Note: This HDL assay may give artificially low results in patients with liver disease. Blood Venous blood specimen / Unknown 06/15/2024 9:00 AM EST 06/15/2024 11:17 AM EST us Heidi Romeo SUPERVISOR DELIVERY DEPARTMENT LAB BLOOD ORDERABLES Final Resul t Performing Organization Address City/State/[facility] Co de Phone Number [facility] [address] [place] [phone] * BI Mammogram Screening Tomosynthesis Bilateral (03/29/2024 3:45 PM EST) Anatomical Region Laterality Modality Breast Bilateral Mammography 03/29/2024 3:45 PM EST Narrative 04/07/2024 12:23 PM EST [facility] [address] [place] [address] Mammography Report Signed Patient: Jami Burns MR# : [id number] : 1965 Acct:[id number] Age/Sex: 58 / F ADM Date: 03/29/24 Loc: [facility] Attending Dr: Heidi Romeo SUPERVISOR DELIVERY DEPARTMENT Ordering Physician: Heidi Romeo NP Results: 1Negati ve Date of Service: 03/29/24 Follow Up: 1 Year From Orig inal Mammogram Procedure(s): MM tomosynthesis screening BI Accession Number(s): [id number] cc: Heidi Romeo SUPERVISOR DELIVERY DEPARTMENT EXAMINATION: MM SCREENING DIGITAL BREAST TOMOSYNTHESIS, BILATERAL [...] by: Katrina Galloway DO 04/07/2024 12:20 PM [facility] Dictated By: Katrina Galloway DO Signed By: <Electronically signed by Katrina Galloway DO in OV> 04/07/24 1220 DD/ 1545 TD/TT: 03/29/24 1610 Nickel Plater: Procedure Note Donotuseinterpreter, Image - 04/07/2024 [facility] [address] [place] [address] Mammography Report Signed Patient: Jami Burns DMR# : [id number] : 1965Acct:[id number] Age/Sex: 58 / FADM Date: 03/29/24 Loc: [facility] Attending Dr: Heidi Romeo SUPERVISOR DELIVERY DEPARTMENT Ordering Physician: Heidi Romeo NPResults: 1Negati ve Date of Service: 03/29/24Follow Up: 1 Year From Orig inal Mammogram Procedure(s): MM tomosynthesis screening BI Accession Number(s): [id number] cc: Heidi Romeo SUPERVISOR DELIVERY DEPARTMENT EXAMINATION: MM SCREENING DIGITAL BREAST TOMOSYNTHESIS, BILATERAL [...] by: Katrina Galloway DO 04/07/2024 12:20 PM [facility] Dictated By: Katrina Galloway DO Signed By: <Electronically signed by Katrina Galloway DO in OV> 04/07/24 1220 DD/ 1545 TD/TT: 03/29/24 1610 Nickel Plater: Heidi Romeo NP IM BI PROCEDURES Final Result * HPV mRNA E6/E7 w/Reflex to HPV Genotypes 16, 18/45 (03/17/2023 2:14 PM EDT) HPV nRNA E6/E7 Not Detected Not Detected [facility] Comment:Methodology: Transcr iption-Mediated AmplificationThis assay detects E6/E7 viral messenger RNA (mRNA) from 14high-risk HPV types (16,18,31,33,35,39,45,51,52,56,58,59,66,68).Cervical sources are required for HPV testing.If a vaginal source from a patient who has had atotal hysterectomy with removal of cervix wassubmitted, please contact the testing laboratoryfor alternative testing options.For additional information, please refer tohttp://education.AutomateIt/faq/FKW993h7(This link if provided for information/educational purposes only.)THIS TEST WAS PERFORMED AT:[facility] [place] [phone] LUCIA MD HPV mRNA E6/E7 [facility] HPV 16 RNA TNP [facility] HPV 18/45 RNA TNP [facility] 03/17/2023 2:14 PM EDT 03/18/2023 7:00 AM EDT us Yu Cortez CNM LAB CYTOLOGY ORDERABLES F inal Result [facility] [address] [place] [phone] * Pap Smear (03/17/2023 2:14 PM EDT) 03/17/2023 2:14 PM EDT 03/18/2023 7:00 AM EDT Narrative [facility] - 03/20/2023 9:41 AM EDT ----- ------- Name: Jami Burns Age/Sex: 57/F : 1965 Unit#: [id number] Attend Dr: YU CORTEZ CNM Re03/17/23 Status: DEP REF Location: HO.HHCLNP Disch: ----- ------- SPEC : [id number] RECD: 03/18/23 STATUS: EMMA LIU NUM: [id number] LELAND: 03/17/231414 [facility] DR: YU CORTEZ CNM ENTERED: 03/18/2349 SP TYPE: Pap Smr OTHR DR: ORDERED: Pap Smear Interpretation Satisfactory for evaluation. Negative for intraepithelial lesion or malignancy. HPV mRNA E6/E7: NOT DETECTED This assay detects E6/E7 viral messenger RNA (mRNA) from 14 high-risk HPV types (16, 18, 31, 33, 35, 39, 45, 51, 52, 56, 58, 59, 66, 68) HPV testing performed by [facility], [place], [place]. See reference laboratory pion of the EMR for entire report. Clinical Information LMP: Postmenopausal Previous PAP test: 2018, WNL Material Received ThinPrep-Cervical ----- ------- Signed (signature on file) BRICE Bryson (ASCP) 03/20/23 0941 ----- ------- END OF REPORT Yu Cortez CNM LAB CYTOLOGY ORDERABLES F inal Result [facility] [address] [place] [phone] from Last 3 Months or Most Recently Relevant to Health Maintenance [facility] MEDICAID STAND ADULT Care Teams Data Analytics Chief Scientist Relationship Specialty Start Date End Date Heidi Romeo NP [address] [place] [address] PCP - General Family Medicine 11/20/23
== END 2025-02-15 13:13 | disposition home or self-care (01) ==
LOC: HO.ENCR 12:46
PROVIDERS: Visit Provider Student in an Organized Health Care Education/Training Program
DX: E04.2 Nontoxic multinodular goiter (principal)
CPT/HCPCS: 99213

== ENCOUNTER → 2025-02-15 12:45 | Outpatient (BNVA) | payer MEDICAID, SELFPAY | PROVIDERS: Visit Provider Student in an Organized Health Care Education/Training Program | DX: E04.2 Nontoxic multinodular goiter (principal) | CPT/HCPCS: 99212 ==

== ENCOUNTER 2025-04-04 15:35 | Outpatient (REF) | payer MEDICAID, SELFPAY ==
--- NOTE | ~2025-04-04 | MM_ITS ---
EXAMINATION: MM SCREENING DIGITAL BREAST TOMOSYNTHESIS, BILATERAL CLINICAL INFORMATION: Screening. Asymptomatic. According to prior reports, prior history of excisional biopsy of the right breast in 2017. COMPARISON: Comparison made to multiple prior, most recent March 29, 2024, and most remote May 02, 2017. TECHNIQUE: Digital breast tomosynthesis is performed in mediolateral oblique and craniocaudal views along with computer-aided detection (CAD). Synthesized 2D images are generated from the tomosynthesis. FINDINGS: BREAST COMPOSITION: There are scattered areas of fibroglandular density. RIGHT BREAST: Prior excisional biopsy. No significant masses, suspicious calcifications or other abnormalities are seen. LEFT BREAST: No significant masses, suspicious calcifications or other abnormalities are seen. MM/MM tomosynthesis screening BI IMPRESSION: BILATERAL BREASTS: Benign, no mammographic evidence of malignancy. Normal interval follow-up is recommended in 12 months. ASSESSMENT: BI-RADS: Category 2: Benign RECOMMENDATION: Routine annual mammography screening. FOLLOW-UP: 1 year F/U This examination should not preclude the clinical evaluation of a suspicious palpable abnormality. This patient's information was entered into a reminder system with a target due date for their next mammogram. Electronically signed by: Rea Escamilla MD 04/05/2025 09:58 PM [facility]
--- OUTSIDE RECORDS SUMMARY | 2025-04-04 17:41 | XMS_ITS | Encounter Summary ---
Author Organization [employer] Address [address] [facility] [address] [place] [address] Care Team Providers Care Insurance Investigator Name Role Phone Heidi Romeo NP Primary Care Provider [phone] Reason for Visit * Reason Onset Date Comments unable to post insurance 08/10/2024 Encounter Details Date Type Department Care Team ([facility] st Contact Info) Description 08/10/2024 Telephone [facility] [address] [place], [place] [phone] Yang Armas DDS [address], [place] [phone] unable to post insurance Social History Tobacco [...] on filedocumented in this encounter Care Teams Insurance Investigator Relationship Specialty Start Date End Date Heidi Romeo NP [address] [place] [phone] PCP - General Family Medicine 11/20/23 documented as of this encounter
--- OUTSIDE RECORDS SUMMARY | 2025-04-04 17:41 | XMS_ITS | Clinical Summary ---
Author Organization [employer] Address [address] [place] [address] Care Team Providers Care Academic Tutor Name Role Phone Heidi Romeo NP Primary Care Provider [phone] Allergies No known active allergies Medications Diclofenac Sodium 1 % gel Apply 2 g topically every 6 (six) hours. 08/10/19 22 Active Blood Pressure kit Active clotrimazole (Lotrimin AF) 1 % cream Apply to affected area twice a day for 1 month 60 g 2 03/22/20 24 Active cholecalcifero l (Vitamin D-3) 25 MCG (1000 UT) capsuleIndicat ions:Vitamin D deficiency Take 1 capsule (25 mcg) by mouth Once per day. 90 capsule 3 08/18/19 25 026 Active acetaminophen (Tylenol 8 Hour) 650 MG ER tabletIndicati ons:Severe dental caries,Pain, dental,Periodo ntal disease Take 1 tablet (650 mg) by mouth every 8 (eight) hours if needed for mild pain. Do not crush, chew, or split. 30 tablet 09/22/19 25 Active lisinopril 30 MG tablet TAKE 1 TABLET BY MOUTH EVERY DAY 90 tablet 1 03/10/20 25 Active lisinopril 30 MG tablet TAKE 1 TABLET BY MOUTH EVERY DAY 90 tablet 1 09/11/19 25 025 Discontinued Active Problems Problem Noted Date [...] mg. 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 Upcoming visit is scheduled Encounters Date Type Department Care Team Description 03/09/2025 Refill [facility] [address] [facility], [place] [phone] Heidi Romeo NP 02/05/2025 Orders Only GENERIC EXTERNAL DATA DEPARTMENT Provider, Generic External Data from Last 3 Months Immunizations Immunization Administration [...] Vitamin D 25-OH Total 52.1 >30 ng/mL [facility] Comment: Health Based Reference Values*< 20 ng/mL Dkfjqjdar69-51 ng/mL Insufficient> 30 ng/mL Sufficient*Lisa GOMEZ. N [...] NP LAB BLOOD ORDERABLES Final Resul t [facility] [address] [place] [phone] * TSH with Reflex to Free T4 (02/05/2025 9:00 AM EDT) TSH reflex Free T4 1.03 0.32 - 4.0 uIU/mL [facility] 02/05/2025 9:00 AM EDT 02/05/2025 9:00 AM EDT Heidi Romeo TORTS LAW PROFESSOR LAB BLOOD ORDERABLES Final Resul t Performing Organization Address City/[facility]/ZIP Co de Phone Number [facility] [address] [place] [phone] * TSH (02/05/2025 9:00 AM EDT) [facility] Thyroid Stimulating Hormone 1.03 0.32 - 4.0 uIU/mL [facility] Comment:TSH 3rd Generation ( [facility]) 02/05/2025 9:00 AM EDT 02/05/2025 9:00 AM EDT us Generic External Data Provider LAB BLOOD ORDERAB LES Final Result Performing Organization Address City/[facility]/ZIP Co de Phone Number [facility] [address] [place] [phone] * Colonoscopy (09/07/2024) [facility] Colonoscopy Normal Normal Narrative Vicky Gonzalez - 09/07/2024 Repeat in 3 years see external hospital admission note Historical Provider HEALTH MAINTENANCE Final Result * (ABNORMAL) Lipid Panel, Standard (06/15/2024 9:00 AM EST) [facility] Triglycerides 88 <150 mg/dL [facility] Comment:Desirable Triglyceri de: less than 150 mg/dLBorderline High Triglyceride 150-199 mg/dLHigh Triglyceride: 200-499 mg/dLVery High Triglyceride: greater than or equal to 5OO mg/dL Cholesterol 161 <200 mg/dL [facility] Comment:Desirable Cholestero l: less than 200 mg/dLBorderline High Cholesterol: 200-239 mg/dLHigh Cholesterol: greater than 239 mg/dL LDL Cholesterol Calculated 110(H) <100 mg/dL [facility] Comment:Desirable LDL: less than 100 mg/dLNear Optimal/Above Optimal LDL: 110- 129 mg/dLBorderline High LDL: 130-159 mg/dLHigh LDL: 160-189 mg/dLVery High LDL: greater than or equal to 190 mg/dL HDL Cholesterol 34(L) >40 mg/dL [facility] Comment:Desirable HDL: great er than 40 mg/dL Note: This HDL assay may give artificially low results in patients with liver disease. Blood Venous blood specimen / Unknown 06/15/2024 9:00 AM EST 06/15/2024 11:17 AM EST Heidi Romeo NP LAB BLOOD ORDERABLES Final Resul t [facility] [address] [place] [phone] * BI Mammogram Screening Tomosynthesis Bilateral (03/29/2024 3:45 PM EST) Anatomical Region Laterality Modality Breast Bilateral Mammography 03/29/2024 3:45 PM EST Narrative 04/07/2024 12:23 PM EST [address] [place] [address] Mammography Report Signed Patient: Jami Burns MR# : [id number] : 1965 Acct:[id number] Age/Sex: 58 / F ADM Date: 03/29/24 Loc: HO.MAMMO Attending Dr: Heidi Romeo TORTS LAW PROFESSOR Ordering Physician: Heidi Romeo NP Results: 1Negati ve Date of Service: 03/29/24 Follow Up: 1 Year From Orig inal Mammogram Procedure(s): MM tomosynthesis screening BI Accession Number(s): [id number] cc: Heidi Romeo NP EXAMINATION: MM SCREENING [...] by: Katrina Galloway DO 04/07/2024 12:20 PM [facility] Dictated By: Katrina Galloway DO Signed By: <Electronically signed by Katrina Galloway DO in OV> 04/07/24 1220 DD/ 1545 TD/TT: 03/29/24 1610 Sailor: Procedure Note Donotuseinterpreter, Image - 04/07/2024 [facility] [address] [place] [address] Mammography Report Signed Patient: Jami Burns DMR# : [id number] : 1965Acct:[id number] Age/Sex: 58 / FADM Date: 03/29/24 Loc: HO.MAMMO Attending Dr: Heidi Romeo TORTS LAW PROFESSOR Ordering Physician: Heidi Romeo NPResults: 1Negati ve Date of Service: 03/29/24Follow Up: 1 Year From Orig inal Mammogram Procedure(s): MM tomosynthesis screening BI Accession Number(s): [id number] cc: Heidi Romeo TORTS LAW PROFESSOR EXAMINATION: MM SCREENING DIGITAL BREAST TOMOSYNTHESIS, BILATERAL [...] 04/07/24 1220 DD/ 1545 TD/TT: 03/29/24 1610 Sailor: Heidi Romeo NP IMG BI PROCEDURES Final Result * HPV mRNA E6/E7 w/Reflex to HPV Genotypes 16, 18/45 (03/17/2023 2:14 PM EDT) HPV nRNA E6/E7 Not Detected Not Detected [facility] Comment:Methodology: Transcr iption-Mediated AmplificationThis assay detects E6/E7 viral messenger RNA (mRNA) from 14high-risk HPV types (16,18,31,33,35,39,45,51,52,56,58,59,66,68).Cervical sources are required for HPV testing.If a vaginal source from a patient who has had atotal hysterectomy with removal of cervix wassubmitted, please contact the testing laboratoryfor alternative testing options.For additional information, please refer tohttp://education.IEV/faq/YNQ797w4(This link if provided for information/educational purposes only.)THIS TEST WAS PERFORMED AT:[facility] [place] [phone] LUCIA MD HPV mRNA E6/E7 [facility] HPV 16 RNA [facility] HPV 18/45 RNA [facility] 03/17/2023 2:14 PM EDT 03/18/2023 7:00 AM EDT Yu Cortez CNM LAB CYTOLOGY ORDERABLES F inal Result [facility] [address] [place] [phone] * Pap Smear (03/17/2023 2:14 PM EDT) 03/17/2023 2:14 PM EDT 03/18/2023 7:00 AM EDT Narrative [facility] - 03/20/2023 9:41 AM EDT ----- ------- Name: Jami Burns Age/Sex: 57/F : 1965 Unit#: [id number] Attend Dr: YU CORTEZ CNM Re03/17/23 Status: DEP REF Location: HO.HHCLNP Disch: ----- ------- SPEC : [id number] RECD: 03/18/23 STATUS: EMMA LIU NUM: [id number] LELAND: 03/17/[address]: YU CORTEZ CNM ENTERED: 03/18/23 SP TYPE: Pap Smr OTHR DR: ORDERED: Pap Smear Interpretation Satisfactory for evaluation. Negative for intraepithelial lesion or malignancy. HPV mRNA E6/E7: NOT DETECTED This assay detects E6/E7 viral messenger RNA (mRNA) from 14 high-risk HPV types (16, 18, 31, 33, 35, 39, 45, 51, 52, 56, 58, 59, 66, 68) HPV testing performed by [facility], [place], [place]. See reference laboratory pion of the EMR for entire report. Clinical Information LMP: Postmenopausal Previous PAP test: 2018, WNL Material Received ThinPrep-Cervical ----- ------- Signed (signature on file) BRICE Bryson (ASCP) 03/20/23 0941 ----- ------- END OF REPORT Yu Cortez [facility] CYTOLOGY ORDERABLES F inal Result [facility] [address] [place] [phone] from Last 3 Months or Most Recently Relevant to Health Maintenance Insurance [facility] C3 HSN FULL * Guarantor: Jami Burns Account Type Relation to Patient Date of Phone Billing Address Personal/Family Self [address] [place] Care Teams Academic Tutor Relationship Specialty Start Date End Date Heidi Romeo NP [address] [place] [address] PCP - General Family Medicine 11/20/23
== END 2025-04-04 15:36 | disposition home or self-care (01) ==
LOC: HO.MAMMO 15:35
PROVIDERS: PCP Nurse Practitioner Family; Visit Provider Nurse Practitioner Family
DX: Z12.31 Encounter for screening mammogram for malignant neoplasm of breast (principal)
CPT/HCPCS: 77063; 77067

== ENCOUNTER → 2025-04-04 16:00 | Outpatient (BNV) | payer MEDICAID, SELFPAY | PROVIDERS: PCP Nurse Practitioner Family; Visit Provider Radiology Body Imaging | DX: Z12.31 Encounter for screening mammogram for malignant neoplasm of breast (principal) | CPT/HCPCS: 77063; 77067 ==

== ENCOUNTER 2025-04-26 12:37 | Outpatient (REF) | payer MEDICAID, SELFPAY ==
--- NOTE | ~2025-04-26 | US_ITS ---
CLINICAL HISTORY: urinary frequency -- pre and post void residual please Exam: Ultrasound of the bladder Comparison: None Findings: Urinary bladder is well-distended, no calculus, mass or wall thickening is seen. Bilateral ureteral jets are present. Prevoid bladder volume is 313 mL, postvoid residual volume 83 mL. Impression: Incomplete bladder emptying, otherwise normal. This document has been electronically signed by: Ema Schmitt MD on 04/26/2025 15:01:24
--- OUTSIDE RECORDS SUMMARY | 2025-04-26 14:36 | XMS_ITS | Encounter Summary ---
Author Organization [employer] Address [address] [facility] [address] [place] [address] Care Team Providers Care Cutter And Edge Trimmer Name Role Phone Heidi Romeo NP Primary Care Provider [phone] Reason for Visit * Reason Onset Date Comments unable to post insurance 08/10/2024 Encounter Details Date Type Department Care Team ([facility] st Contact Info) Description 08/10/2024 Telephone [facility] [address] [place], [place] [phone] Yang Armas DDS [address] [place], [place] [phone] unable to post insurance Social History Tobacco [...] on filedocumented in this encounter Care Teams Cutter And Edge Trimmer Relationship Specialty Start Date End Date Heidi Romeo NP [address] [place] [phone] PCP - General Family Medicine 11/20/23 documented as of this encounter
--- OUTSIDE RECORDS SUMMARY | 2025-04-26 14:36 | XMS_ITS | Clinical Summary ---
Author Organization [facility] Address [address] [facility] [address] [place] [address] Care Team Providers Care Psychology Assistant Name Role Phone Heidi Romeo NP Primary Care Provider [phone] Allergies No known active allergies Medications Diclofenac [...] 90 capsule 3 5 08/18/19 26 Active acetaminophen (Tylenol 8 Hour) 650 MG ER tabletIndicatio ns:Severe dental caries,Pain, dental,Periodon lovely disease Take 1 tablet (650 mg) by mouth every 8 (eight) hours if needed for mild pain. Do not crush, chew, or split. 30 tablet 5 Active lisinopril 30 MG tablet TAKE 1 TABLET BY MOUTH EVERY DAY 90 tablet 1 5 Active Active Problems Problem Noted Date [...] Encounters Date Type Department Care Team Description 04/04/2025 Orders Only [facility] [address] [place] [address] Heidi Romeo NP 03/09/2025 Refill [facility] [address] [place] [address] Heidi Romeo NP 02/05/2025 Orders Only GENERIC [...] C Screening 10/25/1981 COVID-19 Vaccine (3 - Moderna risk series) 11/01/2020 10/04/2020, 09/06/2020 Influenza Vaccine (#1) 2025 06/01/2019, 2017 SDOH Screening 05/28/2025 05/28/2024 Alcohol/Substance Use Screening 08/17/2025 08/17/2024 Depression Screening 11/22/2025 11/22/2024, 11/23/19 25 Disability Screening 11/22/2025 11/22/2024 Tobacco Screening 11/22/2025 11/22/2024 Mammogram 04/04/2027 04/04/2025, 1108/2023, 03/20/2022, Additional history exists Dental X-Ray: Full Mouth 08/12/2027 08/10/2024 Colonoscopy 09/08/2027 09/07/2024, 12/17/2021 Colorectal Cancer Screening 09/08/2027 Cervical Cancer Screening 03/17/2028 HPV/Cotest 03/17/2028 03/17/2023, 03/18/2018 Pap Smear 03/17/2028 03/17/2023 DTaP/Tdap/Td Vaccines (2 - Td or Tdap) 04/22/2028 04/22/2018 Lipid Panel 06/15/2029 06/15/2024, 08/0 10/2021, 05/09/2020 RSV Patients and Patients Aged 60 years or older (1 - 1-dose 75+ series) 10/25/2038 Hepatitis B Vaccines Completed 06/01/2019, 04/22/2018, 03/18/2018 Pneumococcal Vaccine: 50+ Years Completed 11/02/2024 Zoster Vaccines Completed 11/02/2024, 02/24, 01/12/2020 HIB Vaccines Aged Out No longer [...] Procedure Name Priority Date/Time Associated Diagnosis Comments BI MAMMOGRAM SCREENING TOMOSYNTHESIS BILATERAL Routine 04/04/2025 3:40 PM EST TSH W/REFLEX TO FT4 Routine 02/05/2025 9 :00 AM EDT TSH Routine 02/05/2025 9:00 AM EDT VITAMIN D,25-OH,TOTAL,IA Routine 02/05/2025 9:00 AM EDT Vitamin D deficiency HM COLONOSCOPY Routine 09/07/2024 PANORAMIC RADIOGRAPHIC IMAGE Routine 08/10/2024 11:30 AM EDT LIPID PANEL, STANDARD Routine 06/15/2024 9:00 AM EST Essential hypertension HPV MRNA E6/E7 REFLEX TO HPV 16, 18/45 Routine 03/17/2023 2:14 PM EDT PAP SMEAR Routine 03/17/2023 2:14 PM EDT from Last 3 Months or Most Recently Relevant to Health Maintenance Results * BI Mammogram Screening Tomosynthesis Bilateral (04/04/2025 3:40 PM EST) Anatomical Region Laterality Modality Breast Bilateral Mammography 04/04/2025 3:40 PM EST Narrative 04/05/2025 10:01 PM EST [facility] [address] [place], [place] [address] Mammography Report Signed Patient: Jami Burns MR# : [id number] : 1965 Acct:[id number] Age/Sex: 59 / F ADM Date: 04/04/25 Loc: [facility] Attending Dr: Heidi Romeo NP Ordering Physician: Heidi Romeo NP Results: 2Benign Date of Service: 04/04/25 Follow Up: 1 Year From [facility] Mammogram Procedure(s): MM tomosynthesis screening BI Accession Number(s): [id number] cc: Heidi Romeo NP Reason For Exam: SCREENING EXAMINATION: MM SCREENING DIGITAL BREAST TOMOSYNTHESIS, BILATERAL CLINICAL INFORMATION: Screening. Asymptomatic. According to prior reports, prior history of excisional biopsy of the right breast in 2017. COMPARISON: Comparison made to multiple prior, most recent March 29, 2024, and most remote May 02, 2017. TECHNIQUE: Digital breast tomosynthesis is performed in mediolateral oblique and craniocaudal views along with computer-aided detection (CAD). Synthesized 2D images are generated from the tomosynthesis. FINDINGS: BREAST COMPOSITION: There are scattered areas of fibroglandular density. RIGHT BREAST: Prior excisional biopsy. No significant masses, suspicious calcifications or other abnormalities are seen. LEFT BREAST: No significant masses, suspicious calcifications or other abnormalities are seen. MM/MM tomosynthesis screening BI IMPRESSION: BILATERAL BREASTS: Benign, no mammographic evidence of malignancy. Normal interval follow-up is recommended in 12 months. ASSESSMENT: BI-RADS: Category 2: Benign RECOMMENDATION: Routine annual mammography screening. FOLLOW-UP: 1 year F/U This examination should not preclude the clinical evaluation of a suspicious palpable abnormality. This patient's information was entered into a reminder system with a target due date for their next mammogram. Electronically signed by: Rea Escamilla MD 04/05/2025 09:58 PM EST Dictated By: Rea Escamilla MD Signed By: <Electronically signed by Rea Escamilla MD in OV> 04/05/25 2158 DD/ 1540 TD/TT: 04/04/25 [address] Dry Cleaner Hand: Procedure Note Donotuseinterpreter, Image - 04/05/2025 [facility] [address] [place] [address] Mammography Report Signed Patient: Jami Burns [facility]# : [id number] : 1965Acct:[id number] Age/Sex: 59 / FADM Date: 04/04/25 Loc: [facility] Attending Dr: Heidi Romeo NP Ordering Physician: Heidi Romeo NPResults: 2Benign Date of Service: 04/04/25Follow Up: 1 Year From Orig inal Mammogram Procedure(s): MM tomosynthesis screening BI Accession Number(s): [id number] cc: Heidi Romeo NP Reason For Exam: SCREENING EXAMINATION: MM SCREENING DIGITAL BREAST TOMOSYNTHESIS, BILATERAL CLINICAL INFORMATION: Screening. Asymptomatic. According to prior reports, prior history of excisional biopsy of the right breast in 2017. COMPARISON: Comparison made to multiple prior, most recent March 29, 2024, and most remote May 02, 2017. TECHNIQUE: Digital breast tomosynthesis is performed in mediolateral oblique and craniocaudal views along with computer-aided detection (CAD). Synthesized 2D images are generated from the tomosynthesis. FINDINGS: BREAST COMPOSITION: There are scattered areas of fibroglandular density. RIGHT BREAST: Prior excisional biopsy. No significant masses, suspicious calcifications or other abnormalities are seen. LEFT BREAST: No significant masses, suspicious calcifications or other abnormalities are seen. MM/MM tomosynthesis screening BI IMPRESSION: BILATERAL BREASTS: Benign, no mammographic evidence of malignancy. Normal interval follow-up is recommended in 12 months. ASSESSMENT: BI-RADS: Category 2: Benign RECOMMENDATION: Routine annual mammography screening. FOLLOW-UP: 1 year F/U This examination should not preclude the clinical evaluation of a suspicious palpable abnormality. This patient's information was entered into a reminder system with a target due date for their next mammogram. Electronically signed by: Rea Escamilla MD 04/05/2025 09:58 PM [facility] Dictated By: Rea Escamilla MD Signed By: <Electronically signed by Rea Escamilla MD in OV> 04/05/25 2158 DD/ 1540 TD/TT: 04/04/25 [address] Dry Cleaner Hand: Heidi Romeo NP IM BI PROCEDURES Final Result * Vitamin D, 25-Hydroxy, Total, Immunoassay (02/05/2025 9:00 AM EDT) Vitamin D 25-OH Total 52.1 >30 ng/mL [facility] Comment: Health Based Reference Values*< 20 ng/mL [id number] ng/mL Insufficient> 30 ng/mL Sufficient*Lisa GOMEZ. N [...] 02/05/2025 9:00 AM EDT us Heidi Romeo LAN ANALYST LAB BLOOD ORDERABLES Final Resul t Performing Organization Address [facility] Co de Phone Number [facility] [address] [place] [phone] * TSH with Reflex to Free T4 (02/05/2025 9:00 AM EDT) TSH reflex Free T4 1.03 0.32 - 4.0 uIU/mL [facility] 02/05/2025 9:00 AM EDT 02/05/2025 9:00 AM EDT us Heidi Romeo LAN ANALYST LAB BLOOD ORDERABLES Final Resul t Performing Organization Address [facility] Co de Phone Number [facility] [address] [place] [phone] * TSH (02/05/2025 9:00 AM EDT) Thyroid Stimulating Hormone 1.03 0.32 - 4.0 uIU/mL [facility] Comment:TSH 3rd Generation ( [facility]) 02/05/2025 9:00 AM EDT 02/05/2025 9:00 AM EDT us Generic External Data Provider LAB BLOOD ORDERAB LES Final Result Performing Organization Address [facility] Co de Phone Number [facility] [address] [place] [phone] * Hm Colonoscopy (09/07/2024) Colonoscopy Normal Normal Narrative Vicky Gonzalez - 09/07/2024 Repeat in 3 years see external hospital admission note us Historical Provider HEALTH MAINTENANCE Final Result * (ABNORMAL) Lipid Panel, Standard (06/15/2024 9:00 AM EST) Triglycerides 88 <150 mg/dL [facility] Comment:Desirable Triglyceri de: less than 150 mg/dLBorderline High Triglyceride 150-199 mg/dLHigh Triglyceride: 200-499 mg/dLVery High Triglyceride: greater than or equal to 5OO mg/dL Cholesterol 161 <200 mg/dL [facility] Comment:Desirable Cholestero l: less than 200 mg/dLBorderline High Cholesterol: 200-239 mg/dLHigh Cholesterol: greater than 239 mg/dL LDL Cholesterol Calculated 110(H) <100 mg/dL [facility] Comment:Desirable LDL: less than 100 mg/dLNear Optimal/Above Optimal LDL: 110- 129 mg/dLBorderline High LDL: 130-159 mg/dLHigh LDL: 160-189 mg/dLVery High LDL: greater than or equal to 190 mg/dL HDL Cholesterol 34(L) >40 mg/dL [facility] Comment:Desirable HDL: great er than 40 mg/dL Note: This HDL assay may give artificially low results in patients with liver disease. Blood Venous blood specimen / Unknown 06/15/2024 9:00 AM EST 06/15/2024 11:17 AM EST us Heidi Romeo NP LAB BLOOD ORDERABLES Final Resul t [facility] [address] [place] [phone] * HPV mRNA E6/E7 w/Reflex to HPV Genotypes 16, 18/45 (03/17/2023 2:14 PM EDT) HPV nRNA E6/E7 Not Detected Not Detected [facility] Comment:Methodology: Transcr iption-Mediated AmplificationThis assay detects E6/E7 viral messenger RNA (mRNA) from 14high-risk HPV types (16,18,31,33,35,39,45,51,52,56,58,59,66,68).Cervical sources are required for HPV testing.If a vaginal source from a patient who has had atotal hysterectomy with removal of cervix wassubmitted, please contact the testing laboratoryfor alternative testing options.For additional information, please refer tohttp://[email or web address]/faq/YWP521t1(This link if provided for information/educational purposes only.)THIS TEST WAS PERFORMED AT:[facility] [place] [phone] LUCIA MD HPV mRNA E6/E7 [facility] HPV 16 RNA [facility] HPV 18/45 RNA [facility] 03/17/2023 2:14 PM EDT 03/18/2023 7:00 AM EDT Yu Cortez CNM LAB CYTOLOGY ORDERABLES F inal Result [facility] [address] [place] [phone] * Pap Smear (03/17/2023 2:14 PM EDT) 03/17/2023 2:14 PM EDT 03/18/2023 7:00 AM EDT Francine [facility] - 03/20/2023 9:41 AM EDT ----- ------- Name: Jami Burns Age/Sex: 57/F : 1965 Unit#: [id number] Attend Dr: YU CORTEZ CNM Re03/17/23 Status: DEP REF Location: [facility] Disch: ----- ------- SPEC : [id number] RECD: 03/18/23 STATUS: EMMA LIU NUM: [id number] LELAND: 03/17/[address] [facility] [address]: YU CORTEZ [facility] ENTERED: 03/18/23 SP TYPE: Pap Smr OT DR: ORDERED: Pap Smear Interpretation Satisfactory for evaluation. Negative for intraepithelial lesion or malignancy. HPV mRNA E6/E7: NOT DETECTED This assay detects E6/E7 viral messenger RNA (mRNA) from 14 high-risk HPV types (16, 18, 31, 33, 35, 39, 45, 51, 52, 56, 58, 59, 66, 68) HPV testing performed by [facility], [place], [place]. See reference laboratory pion of the EMR for entire report. Clinical Information LMP: Postmenopausal Previous PAP test: 2018, WNL Material Received ThinPrep-Cervical ----- ------- Signed (signature on file) BRICE Bryson (ASC) 03/20/23 0941 ----- ------- END OF REPORT Yu LANDEROS LAB CYTOLOGY ORDERABLES F inal Result [facility] [address] [place] [phone] from Last 3 Months or Most Recently Relevant to Health Maintenance Insurance [facility] C3 HSN F[employer] DENTAL-[facility] MEDICAID STAND ADULT Care Teams Psychology Assistant Relationship Specialty Start Date End Date Heidi Romeo NP [address] [place] [phone] PCP - General Family Medicine 11/20/23
== END 2025-04-26 12:38 | disposition home or self-care (01) ==
LOC: HO.US 12:37
PROVIDERS: PCP Nurse Practitioner Family; Visit Provider Nurse Practitioner Family
DX: R35.0 Frequency of micturition (principal)
CPT/HCPCS: 76857

== ENCOUNTER → 2025-04-26 13:00 | Outpatient (BNV) | payer MEDICAID, SELFPAY | PROVIDERS: PCP Nurse Practitioner Family; Visit Provider Radiology Diagnostic Radiology | DX: R35.0 Frequency of micturition (principal) | CPT/HCPCS: 76857 ==